=== PATIENT | female | born 1985 | race Caucasian/White ===

== ENCOUNTER 2017-11-27 08:20 | Emergency (ER) | payer OTHER ==
--- OUTSIDE RECORDS SUMMARY | 2017-11-27 08:22 | XMS REPORT ---
:1985 [facility] Organization [facility] Address [address] [place] [address] Dr. Conn [address] [place] [id number] Care Team Providers Name Role Phone Unavailable Unavailable Unavailable Problems This patient has no known problems. Allergies, Adverse Reactions, Alerts This patient has no known allergies or adverse reactions. Medications This patient has no known medications.
[2017-11-27] MEDS ORDERED: MORPHINE 4 MG/ML SYR ONE (08:43)
[2017-11-27] MEDS ORDERED: ONDANSETRON 4 MG/2 ML VIAL ONE (08:44)
[2017-11-27] MEDS ORDERED: KETOROLAC 30 MG/ML INJ ONE (08:44)
[2017-11-27] MEDS ORDERED: NA CHLORIDE 0.9% 1,000 ML ONE (08:44)
[2017-11-27 09:05] LABS: Absolute Lymphocytes (CBC) 1.7 K/uL (0.7-4.9); Absolute Monocytes 0.4 K/uL (0.1-1.3); Absolute Neutrophil 4.2 K/uL (1.8-8.0); Basophils % 0.7 % (0-1.3); Eosinophils % 3.8 % (0-4.4); MCH 29.8 pg (27.0-35.0); MCV 87.5 fL (80-100); MPV 9.6 fL (7.6-11.3); Monocytes % 6.3 % (3.3-12.3); RBC Red Blood Cell Count 4.57 M/uL (3.86-4.86)
[2017-11-27 09:31] LABS: ALT/SGPT 23 U/L (12-78); AST/SGOT 18 U/L (15-37); Albumin 3.1 g/dL (3.4-5.0); Alkaline Phosphatase 79 U/L (45-117); BUN Blood Urea Nitrogen 12 mg/dL (7-18); Bicarbonate 26 mmol/L (21-32); Bilirubin Direct < 0.1 mg/dL (0-0.2); Bilirubin Total 0.3 mg/dL (0.2-1.0); Glucose Level 106 mg/dL (74-106); Lipase 89 U/L (73-393); Potassium 4.1 mmol/L (3.5-5.1); Protein, Total 6.7 g/dL (6.4-8.2); Sodium Level 143 mmol/L (136-145)
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
[2017-11-27 11:09] LABS: Urine Blood 2+ (NEG); Urine Glucose NEGATIVE (NEG); Urine Protein NEGATIVE (NEG); Urine Specific Gravity 1.015 (1.005-1.030)
== END 2017-11-27 11:24 | disposition home or self-care (01) ==
LOC: ER 08:20
DX: S29.012A Strain of muscle and tendon of back wall of thorax, initial encounter (principal); V49.9XXA Car occupant (driver) (passenger) injured in unspecified traffic accident, initial encounter; Z72.0 Tobacco use; Z88.5 Allergy status to narcotic agent; Z88.6 Allergy status to analgesic agent; F31.9 Bipolar disorder, unspecified
CPT/HCPCS: 36415; 70450; 71260; 72125; 74177; 80048; 80076; 81003; 81025; 83690; 85025; 86850; 86900; 86901; 96361; 96374; 96375; 99285; J2405; J7030; Q9967

== ENCOUNTER 2018-03-06 15:29 | Emergency (ER) | payer OTHER ==
--- OUTSIDE RECORDS SUMMARY | 2018-03-06 15:31 | XMS REPORT ---
:1985 [facility] Address [address] [place] [address] Dr. Conn [address] [place] [id number] Care Team Providers Name Role Phone Unavailable Unavailable Unavailable Problems This patient has no known problems. Allergies, Adverse Reactions, Alerts This patient has no known allergies or adverse reactions. Medications This patient has no known medications.
[2018-03-06] MEDS ORDERED: IBUPROFEN 400 MG TAB ONE (15:58)
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
--- NOTE | 2018-03-06 17:02 | ER ---
Nurse's Notes [facility] Name: Vanessa Ramachandran Age: 32 yrs Sex: Female : 1985 Arrival Date: 03/06/2018 Time: 15:31 Bed 20 Private MD: Diagnosis: Internal derangement of knee Presentation: 03/06 15:31 Presenting complaint: EMS states: Pt was walking up up stairs and felt her left knee go jl7 out and severe pain to the knee. Transition of care: patient was not received from another setting of care. Onset of symptoms was March 06, 2018. Risk Assessment: Do you want to hurt yourself or someone else? Patient reports no desire to harm self or others. Initial Sepsis Screen: Does the patient meet any 2 criteria? No. Patient's initial sepsis screen is negative. Does the patient have a suspected source of infection? No. Patient's initial sepsis screen is negative. Care prior to arrival: None. 15:31 Method Of Arrival: EMS: [facility] er 15:31 Acuity: ZOE 4 jl7 CLINICAL RN: 17:54 LMP N/A - Irregular menses bp Historical: - Allergies: 15:35 Codeine; jl7 15:35 Ibuprofen; jl7 - Home Meds: 15:35 Sheridan 5-325 mg Oral tab [Active]; BuSpar Oral [Active]; jl7 - PMHx: 15:35 ADD/ADHD; Bipolar disorder; Asthma; Severe Anxiety Disorder; Endometrosis; jl7 - Immunization history:: Adult Immunizations up to date. - Social history:: Smoking status: Patient uses tobacco products, smokes one-half pack cigarettes per day. - Ebola Screening: : No symptoms or risks identified at this time. Screenin:34 Abuse screen: Denies threats or abuse. Denies injuries from another. Nutritional bp screening: No deficits noted. Tuberculosis screening: No symptoms or risk factors identified. Fall Risk No fall in past 12 months (0 pts). No secondary diagnosis (0 pts). No IV (0 pts). Ambulatory Aid- None/Bed Rest/Nurse Assist (0 pts). Gait- Normal/Bed Rest/Wheelchair (0 pts) Mental Status- Oriented to own ability (0 pts). Total Parks Fall Scale indicates No Risk (0-24 pts). Assessment: 15:32 General: Appears in no apparent distress. uncomfortable, obese, Behavior is bp cooperative, appropriate for age, anxious. Pain: Complains of pain in left knee. Neuro: Level of Consciousness is awake, alert, obeys commands, Oriented to person, place, time, situation, Appropriate for age. Cardiovascular: No deficits noted. Respiratory: Airway is patent Respiratory effort is even, unlabored, Respiratory pattern is regular, symmetrical. GI: No signs and/or symptoms were reported involving the gastrointestinal system. : No signs and/or symptoms were reported regarding the genitourinary system. EENT: No deficits noted. Derm: No deficits noted. Musculoskeletal: Circulation, motion, and sensation intact. Range of motion: limited in left knee. 16:30 Reassessment: ALL CURRENT ORDERS COMPLETED, DISPO PENDING. bp 17:52 Reassessment: PT D/C HOME VIA W/C WITH FAMILY, DX WITH INTERNAL DERANGEMENT OF KNEE. bp Vital Signs: 15:35 BP 115 / 79; Pulse 84; Resp 16 S; Temp 98(O); Pulse Ox 97% on R/A; Weight 111.13 kg jl7 (R); Height 5 ft. 3 in. (160.02 cm) (R); Pain 10/10; 17:30 BP 121 / 77; Pulse 73; Resp 14; Pulse Ox 99% ; bp 15:35 Body Mass Index 43.40 (111.13 kg, 160.02 cm) jl7 ED Course: 15:31 Patient arrived in ED. jl7 15:31 Brandyn Broussard, RN is Primary Nurse. bp 15:33 Triage completed. jl7 15:34 Trino Krueger MD is Attending Physician. gs 15:34 Patient has correct armband on for positive identification. Bed in low position. Call bp light in reach. Side rails up X2. 15:35 Arm band placed on right wrist. jl7 15:51 X-ray completed. Portable x-ray completed in exam room. Patient tolerated procedure ka well. 16:07 Knee Left 3 View In Process Unspecified. EDMS 16:58 Virgil Keene MD is Referral Physician. gs 17:53 No provider procedures requiring assistance completed. Patient did not have IV access bp during this emergency room visit. Administered Medications: 15:55 Not Given (Patient Refused): Ibuprofen 600 mg PO once bp 17:00 Drug: Sheridan 5 mg-325 mg 1 tabs Route: PO; bp 17:32 Follow up: Response: Pain is decreased bp Outcome: 17:01 Discharge ordered by . dorene 17:53 Discharged to home via wheelchair, with family. bp 17:53 Condition: stable 17:53 Discharge instructions given to patient, Instructed on discharge instructions, follow up and referral plans. Demonstrated understanding of instructions, follow-up care. 17:55 Patient left the ED. bp Signatures: Dispatcher [employer] EDMS Coty Stuart Jahala, RN RN jl7 Trino Krueger MD MD gs Peltier, Brian RN RN bp
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
[2018-03-06] MEDS ORDERED: HYDROCODONE/APAP 5/325 MG TAB ONE (17:14)
== END 2018-03-06 17:55 | disposition home or self-care (01) ==
LOC: ER 15:29
DX: M23.92 Unspecified internal derangement of left knee (principal); F17.210 Nicotine dependence, cigarettes, uncomplicated; F41.9 Anxiety disorder, unspecified; Z79.899 Other long term (current) drug therapy
CPT/HCPCS: 99283

== ENCOUNTER 2019-05-22 17:57 | Emergency (ER) | payer BC, OTHER ==
--- OUTSIDE RECORDS SUMMARY | 2019-05-22 18:00 | XMS REPORT ---
:1985 Author Organization [facility] Address [address] [place] [address] Dr. Conn [address] [place] [id number] Care Team Providers Name Role Phone Unavailable Unavailable Unavailable Problems This patient has no known problems. Allergies, Adverse Reactions, Alerts This patient has no known allergies or adverse reactions. Medications This patient has no known medications.
--- OUTSIDE RECORDS SUMMARY | 2019-05-22 18:00 | XMS REPORT | Summary of Care ---
:1985 Author Organization [facility] Address [address] [place] [id number] Care Team Providers Name Role Phone Jesse Mclaughlin MD Primary Care Provider Reason for Visit Reason Comments Refill Request Encounter Details Date Type Department Care Team Description 12/05/2018 Refill [facility] Family Medicine Jesse Mclaughlin MD Refill Request - [address] [address] [place] [phone] Allergies Active Allergy Reactions Severity Noted Date Comments Codeine Other - See comments 02/07/2017 Bad stomach pain Ibuprofen Other - See comments 12/23/2016 Severe abdominal pain Metoclopramide Hcl Anxiety 06/21/2018 Massive documented as of this encounter (statuses as of 12/07/2018) Medications Medication Sig Dispensed Refills Start Date End Date Status albuterol 2.5 mg Inhale 3 mL 100 Each 12 12/23/2016 Active /3 mL (0.083 %) every 4 (four) nebulizer hours as solutionIndication needed for s: Mild persistent Wheezing or asthma without Shortness of complication Breath. HYDROcodone-acetam TAKE 1 TABLET 0 02/17/2017 Active inophen 5-325 mg TWICE A DAY tablet FOR 28 DAY(S) sod Use 1 Bottle 1 Each 0 04/13/2017 Active njxpf-lmzbkl-jkpry in each z bottle (NEILMED nostril 2 SINUS RINSE (two) times COMPLETE) pkdv daily. Use in hot shower 1 hour before bedtime Omeprazole 20 mg Take by mouth 0 Active tablet 2 (two) times daily. SYMBICORT 160-4.5 INHALE 2 PUFFS 10.2 Inhaler 8 01/01/2018 Active mcg/actuation 2 (TWO) TIMES inhalerIndications DAILY. : Mild persistent asthma without complication fluocinonide-emoll Apply to 60 g 3 02/12/2018 Active ient 0.05 % area(s) 2 creamIndications: (two) times Seborrheic daily. dermatitis dicyclomine Take 1 tablet 60 tablet 2 03/08/2018 Active (BENTYL) 20 mg by mouth 3 tabletIndications: (three) times Irritable bowel daily as syndrome with needed for constipation Abdominal pain. busPIRone 15 mg Take 15 mg by 0 Active tablet mouth 3 (three) times daily. benzonatate Take 1 capsule 20 capsule 0 03/15/2018 Active (TESSALON PERLES) by mouth 3 100 mg (three) times capsuleIndications daily. : Viral URI fluticasone 50 Use 2 Sprays 16 g 0 03/15/2018 Active mcg/actuation in each nasal nostril daily. sprayIndications: Viral URI norethindrone-ethi 0 03/04/2018 Active nyl estradiol 1-20 mg-mcg per tablet tiZANidine 4 mg Take 4 mg by 0 Active tablet mouth every 6 (six) hours as needed. PREDNISONE, BULK, 0 Active MISC proMETHazine 25 mg Take 1 tablet 12 tablet 0 06/17/2018 Active tabletIndications: by mouth every Epigastric pain, 6 (six) hours Enteritis as needed for Nausea and Vomiting (N/V). divalproex 250 mg Take 250 mg by 0 Active EC tablet mouth at bedtime. loratadine 10 mg Take 1 tablet 30 tablet 12 07/10/2018 Active tabletIndications: by mouth Viral URI daily. sumatriptan Take 1 tablet 9 tablet 12 07/10/2018 Active (IMITREX) 100 mg by mouth as tabletIndications: needed for Intractable Migraine. migraine without aura and without status migrainosus elagolix 150 mg Take 1 tablet 30 tablet 4 07/13/2018 Active TabIndications: by mouth Endometriosis, daily. Pain pelvic NORTRIPTYLINE 25 TAKE 1 CAPSULE 90 capsule 0 09/11/2018 Active mg BY MOUTH AT capsuleIndications BEDTIME : Irritable bowel syndrome with constipation albuterol (PROAIR INHALE TWO 8.5 Each 0 12/07/2018 Active HFA) 90 PUFFS BY MOUTH mcg/actuation EVERY 6 HOURS inhalerIndications NEEDED FOR : Mild persistent WHEEZING AND asthma without FOR SHORTNESS complication OF BREATH albuterol (PROAIR 2 PUFFS EVERY 8.5 Inhaler 0 11/08/2018 Discontinued HFA) 90 6 HOURS 9 mcg/actuation NEEDED FOR inhalerIndications WHEEZING AND : Mild persistent SHORTNESS OF asthma without BREATHE complication documented as of this encounter (statuses as of 12/07/2018) Active Problems Problem Noted Date Abdominal pain 06/19/2018 Other constipation 03/08/2018 Overview: Added automatically from request for surgery [id number] Irritable bowel syndrome with constipation 03/08/2018 Overview: Added automatically from request for surgery [id number] Excessive or frequent menstruation 09/22/2017 Cyst of right ovary 09/22/2017 Morbid obesity with body mass index of 40.0-49.9 06/22/2017 Abdominal pain, right upper quadrant 06/02/2017 Overview: Added automatically from request for surgery [id number] Tobacco use disorder 03/08/2017 Pain pelvic 03/08/2017 Obesity (BMI 30-39.9) 04/30/2016 documented as of this encounter (statuses as of 12/07/2018) Immunizations Name Administration Dates Next Due Tdap 12/02/2016 documented as of this encounter Social History Tobacco Use Types Packs/Day Years Used Date Current Every Day Smoker Cigarettes 0.5 11 Started: 04/03/2005 Smokeless Tobacco: Never Used Alcohol Use Drinks/Week oz/Week Comments No Sex Assigned at Date Recorded Not on file Job Start Date Occupation Industry Not on file Not on file Not on file Travel History Travel Start Travel End No recent travel history available. documented as of this encounter Last Filed Vital Signs Not on filedocumented in this encounter Plan of Treatment Date Type Specialty Care Team Description 01/03/2019 Office Visit Gastroenterology Jeferson Ryder MD Al Hanayneh, Muhannad, MD [address] [facility] [address] [place] [address] [phone] Health Maintenance Due Date Last Done Comments PNEUMOCOCCAL 0-64 YEARS COMBINED SERIES (1 of 1 - 1993 PPSV23) INFLUENZA VACCINE (#1) 2018 PAP SMEAR 03/08/2020 03/08/2017 DTaP,Tdap,and Td Vaccines (2 - Td) 12/02/2026 12/02/2016 documented as of this encounter Results Not on filedocumented in this encounter Visit Diagnoses Diagnosis Mild persistent asthma without complication Unspecified asthma documented in this encounter Insurance Payer Benefit Plan / Subscriber ID Effective Dates Phone Address Type Group [facility] xxxxxxxxx 2017-[facility] Medicaid COMM PLAN - PLUS t MANAGED MEDICAID documented as of this encounter
--- OUTSIDE RECORDS SUMMARY | 2019-05-22 18:00 | XMS REPORT | Summary of Care ---
:1985 Author Organization [facility] Address [address] [place] [id number] Care Team Providers Name Role Phone Jesse Mclaughlin MD Primary Care Provider Reason for Visit Reason Comments Refill Request Encounter Details Date Type Department Care Team Description 11/07/2018 Refill [facility] Family Medicine Jesse Mclaughlin MD Refill Request - [address] [address] [place] [phone] Allergies Active Allergy Reactions Severity Noted Date Comments Codeine Other - See comments 02/07/2017 Bad stomach pain Ibuprofen Other - See comments 12/23/2016 Severe abdominal pain Metoclopramide Hcl Anxiety 06/21/2018 Massive documented as of this encounter (statuses as of 11/08/2018) Medications Medication Sig Dispensed Refills Start Date [...] 1 Bottle 1 Each 0 04/13/2017 Active xofni-walyww-kkauc in each z bottle (NEILMED nostril 2 [...] Irritable bowel syndrome with constipation albuterol (PROAIR 2 PUFFS EVERY 8.5 Inhaler 0 11/08/2018 Active HFA) 90 6 HOURS mcg/actuation NEEDED FOR inhalerIndications WHEEZING AND : Mild persistent SHORTNESS OF asthma without BREATHE complication albuterol (PROAIR 2 PUFFS EVERY 8.5 Inhaler 0 10/18/2018 Discontinued HFA) 90 6 HOURS 9 mcg/actuation NEEDED FOR inhalerIndications WHEEZING AND : Mild persistent SHORTNESS OF asthma without BREATHE complication documented as of this encounter (statuses as of 11/08/2018) Active Problems Problem Noted Date Abdominal pain 06/19/2018 Other constipation 03/08/2018 Overview: Added automatically from request for surgery [id number] Irritable bowel syndrome with constipation 03/08/2018 Overview: Added automatically from request for surgery [id number] Excessive or frequent menstruation 09/22/2017 Cyst of right ovary 09/22/2017 Morbid obesity with body mass index of 40.0-49.9 06/22/2017 Abdominal pain, right upper quadrant 06/02/2017 Overview: Added automatically from request for surgery [id number] Tobacco use disorder 03/08/2017 Pain pelvic 03/08/2017 Obesity (BMI 30-39.9) 04/30/2016 documented as of this encounter (statuses as of 11/08/2018) Immunizations Name Administration Dates Next Due Tdap [...] Jeferson Ryder MD Al Hanayneh, Muhannad, MD [address] [facility] [address] [place] [address] [phone] Health Maintenance Due Date Last Done Comments PNEUMOCOCCAL 0-64 YEARS COMBINED SERIES (1 of 1 - 1993 PPSV23) INFLUENZA VACCINE 12/02/2018 PAP SMEAR 03/08/2020 03/08/2017 DTaP,Tdap,and Td Vaccines (2 - Td) 12/02/2026 12/02/2016 documented as of this encounter Results Not on filedocumented in this encounter Visit Diagnoses Diagnosis Mild persistent asthma without complication Unspecified asthma documented in this encounter Insurance Payer Benefit Plan / Subscriber ID Effective Dates Phone Address Type Group [facility] xxxxxxxxx 2017-[facility] Medicaid COMM PLAN - PLUS t MANAGED MEDICAID documented as of this encounter
--- OUTSIDE RECORDS SUMMARY | 2019-05-22 18:01 | XMS REPORT | Summary of Care ---
:1985 Author Organization [facility] - Health Address [address] [place] [address] Care Team Providers Name Role Phone Jesse Mclaughlin MD Primary Care Provider Encounter Details Date Type Department Care Team Description 12/21/2018 Orders Only [facility] Doctor Unassigned, No [address] [facility] Name [place], [place] [id number] [place], [place] [id number] Allergies Active Allergy Reactions Severity Noted Date Comments Codeine Other - See comments 02/07/2017 Bad stomach pain Ibuprofen Other - See comments 12/23/2016 Severe abdominal pain Metoclopramide Hcl Anxiety 06/21/2018 Massive documented as of this encounter (statuses as of 12/21/2018) Medications Medication Sig Dispensed Refills Start Date End Date Status albuterol 2.5 mg /3 Inhale 3 mL 100 Each 12 12/23/2016 Active mL (0.083 %) every 4 (four) nebulizer hours as needed solutionIndications: for Wheezing or Mild persistent Shortness of asthma without Breath. complication HYDROcodone-acetamino TAKE 1 TABLET 0 02/17/2017 Active phen 5-325 mg tablet TWICE A DAY FOR 28 DAY(S) sod Use 1 Bottle in 1 Each 0 04/13/2017 Active lqfjf-ckgsqe-ykysxr each nostril 2 bottle (NEILMED SINUS (two) times RINSE COMPLETE) pkdv daily. Use in hot shower 1 hour before bedtime Omeprazole 20 mg Take by mouth 2 0 Active tablet (two) times daily. SYMBICORT 160-4.5 INHALE 2 PUFFS 2 10.2 Inhaler 8 01/01/2018 Active mcg/actuation (TWO) TIMES inhalerIndications: DAILY. Mild persistent asthma without complication fluocinonide-emollien Apply to 60 g 3 02/12/2018 Active t 0.05 % area(s) 2 (two) creamIndications: times daily. Seborrheic dermatitis dicyclomine (BENTYL) Take 1 tablet by 60 tablet 2 03/08/2018 Active 20 mg mouth 3 (three) tabletIndications: times daily as Irritable bowel needed for syndrome with Abdominal pain. constipation busPIRone 15 mg Take 15 mg by 0 Active tablet mouth 3 (three) times daily. benzonatate (TESSALON Take 1 capsule 20 capsule 0 03/15/2018 Active PERLES) 100 mg by mouth 3 capsuleIndications: (three) times Viral URI daily. fluticasone 50 Use 2 Sprays in 16 g 0 03/15/2018 Active mcg/actuation nasal each nostril sprayIndications: daily. Viral URI norethindrone-ethinyl 0 03/04/2018 Active estradiol 1-20 mg-mcg per tablet tiZANidine 4 mg Take 4 mg by 0 Active tablet mouth every 6 (six) hours as needed. PREDNISONE, BULK, 0 Active MISC proMETHazine 25 mg Take 1 tablet by 12 tablet 0 06/17/2018 Active tabletIndications: mouth every 6 Epigastric pain, (six) hours as Enteritis needed for Nausea and Vomiting (N/V). divalproex 250 mg EC Take 250 mg by 0 Active tablet mouth at bedtime. loratadine 10 mg Take 1 tablet by 30 tablet 12 07/10/2018 Active tabletIndications: mouth daily. Viral URI sumatriptan (IMITREX) Take 1 tablet by 9 tablet 12 07/10/2018 Active 100 mg mouth as needed tabletIndications: for Migraine. Intractable migraine without aura and without status migrainosus elagolix 150 mg Take 1 tablet by 30 tablet 4 07/13/2018 Active TabIndications: mouth daily. Endometriosis, Pain pelvic NORTRIPTYLINE 25 mg TAKE 1 CAPSULE 90 capsule 0 09/11/2018 Active capsuleIndications: BY MOUTH AT Irritable bowel BEDTIME syndrome with constipation albuterol (PROAIR INHALE TWO PUFFS 8.5 Each 0 12/07/2018 Active HFA) 90 mcg/actuation BY MOUTH EVERY 6 inhalerIndications: HOURS NEEDED Mild persistent FOR WHEEZING AND asthma without FOR SHORTNESS OF complication BREATH documented as of this encounter (statuses as of 12/21/2018) Active Problems Problem Noted Date Abdominal pain 06/19/2018 Other constipation 03/08/2018 Overview: Added automatically from request for surgery [id number] Irritable bowel syndrome with constipation 03/08/2018 Overview: Added automatically from request for surgery [id number] Excessive or frequent menstruation 09/22/2017 Cyst of right ovary 09/22/2017 Morbid obesity with body mass index of 40.0-49.9 06/22/2017 Abdominal pain, right upper quadrant 06/02/2017 Overview: Added automatically from request for surgery [id number] Tobacco use disorder 03/08/2017 Pain pelvic 03/08/2017 Obesity (BMI 30-39.9) 04/30/2016 documented as of this encounter (statuses as of 12/21/2018) Immunizations Name Administration Dates Next Due Tdap [...] Treatment Date Type Specialty Care Team Description 12/21/2018 Office Visit Family Medicine Jesse Mclaughlin MD Arrived [address] [place] [address] [place] [phone] 01/03/2019 Office Visit Gastroenterology Jeferson Ryder MD Al Hanayneh, Muhannad, MD [address] [facility] [address] [place] [address] Health Maintenance Due Date Last Done Comments PNEUMOCOCCAL 0-64 YEARS COMBINED SERIES (1 of 1 - 1993 PPSV23) INFLUENZA VACCINE (#1) 2018 PAP SMEAR 03/08/2020 03/08/2017 DTaP,Tdap,and Td Vaccines (2 - Td) 12/02/2026 12/02/2016 documented as of this encounter Procedures Procedure Name Priority Date/Time Associated Diagnosis Comments NO SHOW OR MISSED Routine 12/21/2018 12:58 PM APPOINTMENT POLICY CDT ACKNOWLEDGEMENT documented in this encounter Results Not on filedocumented in this encounter Insurance Payer Benefit Plan / Subscriber ID Effective Dates Phone Address Type Group [facility] xxxxxxxxx 2017-[employer] Medicaid COMM PLAN - PLUS t MANAGED MEDICAID documented as of this encounter
--- OUTSIDE RECORDS SUMMARY | 2019-05-22 18:01 | XMS REPORT | Summary of Care ---
:1985 Author Organization [facility] Address [address] [place] [address] Care Team Providers Name Role Phone Jesse Mclaughlin MD Primary Care Provider Reason for Visit Reason Comments Congestion Sore Throat Exposed to strep Encounter Details Date Type Department Care Team Description 12/21/2018 Office Visit [facility] Family Jesse Mclaughlin Viral upper Medicine - Asif Whitehead MD respiratory tract [address] infection (Primary [place], [place]x) [address] [phone] Allergies Active Allergy Reactions Severity Noted Date [...] Bottle in 1 Each 0 04/13/2017 Active yjgab-eajfzg-ckijfl each nostril 2 bottle (NEILMED SINUS (two) [...] Overview: Added automatically from request for surgery [id number] Irritable bowel syndrome with constipation 03/08/2018 Overview: Added automatically from request for surgery [id number] Excessive or frequent menstruation 09/22/2017 Cyst of right ovary 09/22/2017 Morbid obesity with body mass index of 40.0-49.9 06/22/2017 Abdominal pain, right upper quadrant 06/02/2017 Overview: Added automatically from request for surgery [id number] Tobacco use disorder 03/08/2017 Pain pelvic 03/08/2017 [...] of this encounter Last Filed Vital Signs Vital Sign Reading Time Taken Comments Blood Pressure 97/70 12/21/2018 1:08 PM CDT Pulse 63 12/21/2018 1:08 PM CDT Temperature 37.2 C (98.9 F) 12/21/2018 1:08 PM CDT Respiratory Rate - - Oxygen Saturation - - Inhaled Oxygen Concentration - - Weight 108 kg (238 lb) 12/21/2018 1:08 PM CDT Height 160 cm (5' 3") 12/21/2018 1:08 PM CDT Body Mass Index 42.16 12/21/2018 1:08 PM CDT documented in this encounter Patient Instructions Patient InstructionsJesse Mclaughlin MD - 12/21/2018 1:00 PM CDTUse Robitussin DM or Mucinex DM. Drink plenty of fluids and get plenty of rest. Advil Cold/Sinus as needed for fever and/or congestion. Wash hands frequently. documented in this encounter Progress Notes Jesse Mclaughlin MD - 12/21/2018 1:00 PM CDT CC: gabe Mendez is a 33 year old female URI Presenting symptoms: congestion, cough, ear pain, facial pain, fatigue, rhinorrhea and sore throat Presenting symptoms: no fever Duration: 2 days Risk factors: sick contacts (son with strep throat) Allergies Allergen Reactions Codeine Other - See comments Bad stomach pain Ibuprofen Other - See comments Severe abdominal pain Reglan [Metoclopramide Hcl] Anxiety Massive Current Outpatient Medications Medication Sig Dispense Refill albuterol (PROAIR HFA) 90 mcg/actuation inhaler INHALE TWO PUFFS BY MOUTH EVERY 6 HOURS NEEDED FOR WHEEZING AND FOR SHORTNESS OF BREATH 8.5 Each 0 NORTRIPTYLINE 25 mg capsule TAKE 1 CAPSULE BY MOUTH AT BEDTIME 90 capsule 0 elagolix 150 mg Tab Take 1 tablet by mouth daily. 30 tablet 4 loratadine 10 mg tablet Take 1 tablet by mouth daily. 30 tablet 12 sumatriptan (IMITREX) 100 mg tablet Take 1 tablet by mouth as needed for Migraine. 9 tablet 12 divalproex 250 mg EC tablet Take 250 mg by mouth at bedtime. proMETHazine 25 mg tablet Take 1 tablet by mouth every 6 (six) hours as needed for Nausea and Vomiting (N/V). 12 tablet 0 PREDNISONE, BULK, MISC norethindrone-ethinyl estradiol 1-20 mg-mcg per tablet tiZANidine 4 mg tablet Take 4 mg by mouth every 6 (six) hours as needed. benzonatate (TESSALON PERLES) 100 mg capsule Take 1 capsule by mouth 3 ( three) times daily. 20 capsule 0 busPIRone 15 mg tablet Take 15 mg by mouth 3 (three) times daily. fluticasone 50 mcg/actuation nasal spray Use 2 Sprays in each nostril daily. 16 g 0 dicyclomine (BENTYL) 20 mg tablet Take 1 tablet by mouth 3 (three) times daily as needed for Abdominal pain. 60 tablet 2 fluocinonide-emollient 0.05 % cream Apply to area(s) 2 (two) times daily. 60 g 3 SYMBICORT 160-4.5 mcg/actuation inhaler INHALE 2 PUFFS 2 (TWO) TIMES DAILY. 10.2 Inhaler 8 Omeprazole 20 mg tablet Take by mouth 2 (two) times daily. sod fdgot-pochit-njvkvo bottle (NEILMED SINUS RINSE COMPLETE) pkdv Use 1 Bottle in each nostril 2 (two) times daily. Use in hot shower 1 hour before bedtime 1 Each 0 HYDROcodone-acetaminophen 5-325 mg tablet TAKE 1 TABLET TWICE A DAY FOR 28 DAY(S) 0 albuterol 2.5 mg /3 mL (0.083 %) nebulizer solution Inhale 3 mL every 4 ( four) hours as needed for Wheezing or Shortness of Breath. 100 Each 12 No current facility-administered medications for this visit. Past Medical History: Diagnosis Date ADHD (attention deficit hyperactivity disorder) at age 5 Anxiety age 14 Bipolar 1 disorder 2002 Breast disorder breast discharge since age 17 Depression Endometriosis 2010 Esophageal reflux Past Surgical History: Procedure Laterality Date CHOLECYSTECTOMY 08/2016 COLONOSCOPY N/A 06/22/2017 Surgeon: Olayinka Shell MD; Location: [place] [facility] COLONOSCOPY N/A 05/01/2018 Surgeon: Jeferson Ryder MD; Location: [place] [facility] Location ESOPHAGOGASTRODUODENOSCOPY N/A 06/22/2017 Surgeon: Olayinka Shell MD; Location: [place] [facility] ESOPHAGOGASTRODUODENOSCOPY N/A 06/21/2018 Surgeon: Sindhu Rowland MD; Location: [facility] EXPLORATORY LAPAROTOMY 2010 endometriosis MYRINGOTOMY as a child x 3 Social History Socioeconomic History Marital status: Single Spouse name: Not on file Number of children: Not on file Years of education: Not on file Highest education level: Not on file Occupational History Not on file Social Needs Financial resource strain: Not on file Food insecurity: Worry: Not on file Inability: Not on file Transportation needs: Medical: Not on file Non-medical: Not on file Tobacco Use Smoking status: Current Every Day Smoker Packs/day: 0.50 Years: 11.00 Pack years: 5.50 Types: Cigarettes Start date: 04/03/2005 Smokeless tobacco: Never Used Substance and Sexual Activity Alcohol use: No Drug use: No Sexual activity: Never Partners: Female control/protection: None Lifestyle Physical activity: Days per week: Not on file Minutes per session: Not on file Stress: Not on file Relationships Social connections: Talks on phone: Not on file Gets together: Not on file Attends christianity service: Not on file Active member of club or organization: Not on file Attends meetings of clubs or organizations: Not on file Relationship status: Not on file Intimate partner violence: Fear of current or ex partner: Not on file Emotionally abused: Not on file Physically abused: Not on file Forced sexual activity: Not on file Other Topics Concern Not on file Social History Narrative Pt denies current or past physical, sexual or emotional abuse. Family History Problem Relation Age of Onset Arthritis Mother Depression Mother Other - see comments Mother benign brain tumor Breast Cancer Mother Cancer Maternal Grandmother Heart Maternal Grandmother Stroke Maternal Grandmother Psychiatry Maternal Grandmother bipolar Cancer Paternal Grandmother High cholesterol Paternal Grandmother Asthma NoFHx defects NoFHx Colon Cancer NoFHx Ovarian Cancer NoFHx Uterine Cancer NoFHx Diabetes NoFHx Genetic NoFHx Hypertension NoFHx Mental retardation NoFHx Neurological NoFHx Osteoporosis NoFHx Review of Systems Constitutional: Positive for fatigue. Negative for fever. HENT: Positive for congestion, ear pain, rhinorrhea and sore throat. Respiratory: Positive for cough. BP 97/70 | Pulse 63 | Temp 37.2 C (98.9 F) (Oral) | Ht 5' 3" (1.6 m) | Wt 238 lb (108 kg) |BMI 42.16 kg/m Physical Exam Constitutional: She is oriented to person, place, and time. She appears well- developed and well-nourished. HENT: Head: Normocephalic and atraumatic. Eyes: Pupils are equal, round, and reactive to light. Conjunctivae are normal. Neck: Normal range of motion. Neck supple. No JVD present. No tracheal deviation present. No thyromegaly present. Cardiovascular: Normal rate, regular rhythm, normal heart sounds and intact distal pulses. Exam reveals no gallop and no friction rub. No murmur heard. Pulmonary/Chest: Effort normal and breath sounds normal. No respiratory distress. She has no wheezes. She has no rales. She exhibits no tenderness. Abdominal: Soft. Bowel sounds are normal. She exhibits no distension and no mass. There is no tenderness. There is no rebound and no guarding. Musculoskeletal: Normal range of motion. She exhibits no edema or tenderness. Lymphadenopathy: She has no cervical adenopathy. Neurological: She is alert and oriented to person, place, and time. Skin: Skin is warm and dry. POCT Strep: NEGATIVE Diagnosis: 1. Viral upper respiratory tract infection Use Robitussin DM or Mucinex DM. Drink plenty of fluids and get plenty of rest. Advil Cold/Sinus as needed for fever and/or congestion. Wash hands frequently. Follow up: prn Patient Care Team: Jesse Mclaughlin MD as PCP - General ([facility]-FAMILY MEDICINE) Plan of care, desired health behaviors, goals,& medication discussed with patient. Education resources & self management tools provided and reviewed with AVS. Patient/guardian/family verbalized understanding & agrees to plan of care. Barriers to care: None Ability to manage care: Good documented in this encounter Plan of Treatment Date Type Specialty Care Team Description 01/03/2019 Office Visit Gastroenterology Jeferson Ryder MD Al Hanayneh, Muhannad, MD [address] [facility] [address] [place] [address] [phone] Health Maintenance Due Date Last Done Comments PNEUMOCOCCAL 0-64 YEARS COMBINED SERIES (1 of 1 - 1993 PPSV23) INFLUENZA VACCINE (#1) 2018 PAP SMEAR 03/08/2020 03/08/2017 DTaP,Tdap,and Td Vaccines (2 - Td) 12/02/2026 12/02/2016 documented as of this encounter Results Not on filedocumented in this encounter Visit Diagnoses Diagnosis Viral upper respiratory tract infection - Primary Acute upper respiratory infections of unspecified site documented in this encounter Insurance Payer Benefit Plan / Subscriber ID Effective Dates Phone Address Type Group [facility] xxxxxxxxx 2017-[employer] Medicaid COMM PLAN - PLUS t MANAGED MEDICAID ([place]) [place] [address] documented as of this encounter
--- OUTSIDE RECORDS SUMMARY | 2019-05-22 18:02 | XMS REPORT | Summary of Care ---
:1985 Author Organization [facility] Address [address] [place] [address] Care Team Providers Name Role Phone Jesse Mclaughlin MD Primary Care Provider Reason for Visit Reason Comments Congestion Sore Throat Exposed to strep Encounter Details Date Type Department Care Team Description 12/21/2018 Office Visit [facility] Family Jesse Mclaughlin Viral upper Medicine - Asif Whitehead MD respiratory tract [address] infection (Primary [place], [place] Dx) [address] [phone] Allergies Active Allergy Reactions Severity Noted Date [...] Bottle in 1 Each 0 04/13/2017 Active svbxh-sifzop-ayykih each nostril 2 bottle (NEILMED SINUS (two) [...] Overview: Added automatically from request for surgery [id number] Irritable bowel syndrome with constipation 03/08/2018 Overview: Added automatically from request for surgery [id number] Excessive or frequent menstruation 09/22/2017 Cyst of right ovary 09/22/2017 Morbid obesity with body mass index of 40.0-49.9 06/22/2017 Abdominal pain, right upper quadrant 06/02/2017 Overview: Added automatically from request for surgery [id number] Tobacco use disorder 03/08/2017 Pain pelvic 03/08/2017 [...] by mouth 2 (two) times daily. sod vjrtw-pbfukz-cpsjtb bottle (NEILMED SINUS RINSE COMPLETE) pkdv Use [...] N/A 06/22/2017 Surgeon: Olayinka Shell MD; Location: [place] [facility] COLONOSCOPY N/A 05/01/2018 Surgeon: Jeferson Ryder MD; Location: [place] [facility] Location ESOPHAGOGASTRODUODENOSCOPY N/A 06/22/2017 Surgeon: Olayinka Shell MD; Location: [place] [facility] ESOPHAGOGASTRODUODENOSCOPY N/A 06/21/2018 Surgeon: Sindhu Rowland MD; Location: [facility] EXPLORATORY LAPAROTOMY 2010 endometriosis MYRINGOTOMY as a [...] file Gets together: Not on file Attends congregation service: Not on file Active member of [...] Jeferson Ryder MD Al Hanayneh, Muhannad, MD [address] [facility] [address] [place] [address] [phone] Health Maintenance Due Date Last Done Comments [...] ID Effective Dates Phone Address Type Group [facility] xxxxxxxxx 2017-[employer] Medicaid COMM PLAN - PLUS t MANAGED MEDICAID ([place]) [place] [address] documented as of this encounter
--- OUTSIDE RECORDS SUMMARY | 2019-05-22 18:02 | XMS REPORT | Summary of Care ---
:1985 Author Organization [facility] Address [address] [place] [address] Care Team Providers Name Role Phone Jesse Mclaughlin MD Primary Care Provider Encounter Details Date Type Department Care Team Description 12/21/2018 Letter (Out) [facility] Family Jesse Mclaughlin Medicine - Asif ROMERO [address] [place] [address] [place] [address] [place] [address] Allergies Active Allergy Reactions Severity Noted Date [...] Bottle in 1 Each 0 04/13/2017 Active skeil-szjdbd-sichtp each nostril 2 bottle (NEILMED SINUS (two) [...] Overview: Added automatically from request for surgery [id number] Irritable bowel syndrome with constipation 03/08/2018 Overview: Added automatically from request for surgery [id number] Excessive or frequent menstruation 09/22/2017 Cyst of right ovary 09/22/2017 Morbid obesity with body mass index of 40.0-49.9 06/22/2017 Abdominal pain, right upper quadrant 06/02/2017 Overview: Added automatically from request for surgery [id number] Tobacco use disorder 03/08/2017 Pain pelvic 03/08/2017 [...] Jeferson Ryder MD Al Hanayneh, Muhannad, MD [address] [facility] [address] [place] [address] [phone] Health Maintenance Due Date Last Done Comments PNEUMOCOCCAL 0-64 YEARS COMBINED SERIES (1 of - 1993 PPSV23) INFLUENZA VACCINE (#1) 2018 PAP SMEAR 03/08/2020 03/08/2017 DTaP,Tdap,and Td Vaccines (2 - Td) 12/02/2026 12/02/2016 documented as of this encounter Results Not on filedocumented in this encounter Insurance Payer Benefit Plan / Subscriber ID Effective Dates Phone Address Type Group [facility] STAR xxxxxxxxx 2017-[facility] Medicaid COMM PLAN - PLUS t MANAGED MEDICAID documented as of this encounter
--- OUTSIDE RECORDS SUMMARY | 2019-05-22 18:02 | XMS REPORT | Summary of Care ---
:1985 Author Organization [facility] Address [address] [place] [address] Care Team Providers Name Role Phone Jesse Mclaughlin MD Primary Care Provider Reason for Visit Reason Comments Congestion Sore Throat Exposed to strep Encounter Details Date Type Department Care Team Description 12/21/2018 Office Visit [facility] Family Jesse Mclaughlin Viral upper Medicine - Asif Whitehead MD respiratory tract [address] infection (Primary [place], [place] Dx) [address] [phone] Allergies Active Allergy Reactions Severity Noted Date [...] Bottle in 1 Each 0 04/13/2017 Active zzjan-ywjhbd-tdbsfz each nostril 2 bottle (NEILMED SINUS (two) [...] Overview: Added automatically from request for surgery [id number] Irritable bowel syndrome with constipation 03/08/2018 Overview: Added automatically from request for surgery [id number] Excessive or frequent menstruation 09/22/2017 Cyst of right ovary 09/22/2017 Morbid obesity with body mass index of 40.0-49.9 06/22/2017 Abdominal pain, right upper quadrant 06/02/2017 Overview: Added automatically from request for surgery [id number] Tobacco use disorder 03/08/2017 Pain pelvic 03/08/2017 [...] by mouth 2 (two) times daily. sod nnmyz-hhongw-yjzzar bottle (NEILMED SINUS RINSE COMPLETE) pkdv Use [...] N/A 06/22/2017 Surgeon: Olayinka Shell MD; Location: [place] [facility] COLONOSCOPY N/A 05/01/2018 Surgeon: Jeferson Ryder MD; Location: [place] [facility] Location ESOPHAGOGASTRODUODENOSCOPY N/A 06/22/2017 Surgeon: Olayinka Shell MD; Location: [place] [facility] ESOPHAGOGASTRODUODENOSCOPY N/A 06/21/2018 Surgeon: Sindhu Rowland MD; Location: [facility] OR [facility] EXPLORATORY LAPAROTOMY 2010 endometriosis MYRINGOTOMY [...] file Gets together: Not on file Attends denominational service: Not on file Active member of [...] Jeferson Ryder MD Al Hanayneh, Muhannad, MD [address] [facility] [address] [place] [address] [phone] Health Maintenance Due Date Last Done Comments [...] ID Effective Dates Phone Address Type Group [facility] xxxxxxxxx 2017-[employer] Medicaid COMM PLAN - PLUS t MANAGED MEDICAID ([place]) [place] [address] documented as of this encounter
--- OUTSIDE RECORDS SUMMARY | 2019-05-22 18:03 | XMS REPORT | Summary of Care ---
:1985 Author Organization [facility] Address [address] [place] [address] Care Team Providers Name Role Phone Jesse Mclaughlin MD Primary Care Provider Reason for Visit Reason Comments Follow-up (Routine) Status Reason Specialty Diagnoses / Referred By Referred To Procedures Contact Contact Authorized Physical Therapy Diagnoses Pain in left knee Other chronic pain Muscle weakness (generalized) Gt Lewis, Procedures [place] THERAPEUTIC EXERCISES [place] NEUROMUSC REEDUCAT,1+ AREAS, EA 15 MIN TX MANUAL THER TECH,1+REGIONS,EA 15 MIN TX THERAPEUT ACTVITY DIRECT PT CONTACT EACH 15 MIN TX SELF-CARE/HOME MGMT TRAINING EACH 15 MINUTES FOLLOW-UP 45 MD Margy Reed, PT [address] [id number] Encounter Details Date Type Department Care Team Description 04/16/2019 Ancillary Visit [facility] Gt Lewis MD [address] [facility] [place] [address] Chronic pain of left knee (Primary Dx); Physical Therapy- Margy Carlton, PT [address] [place] [address] Decreased muscle strength [facility] [address] [place] [address] Dr. Wagner [address] [place] [phone] Allergies Active Allergy Reactions Severity Noted Date Comments Codeine Other - See comments 02/07/2017 Bad stomach pain Ibuprofen Other - See comments 12/23/2016 Severe abdominal pain Metoclopramide Hcl Anxiety 06/21/2018 Massive documented as of this encounter (statuses as of 04/16/2019) Medications Medication Sig Dispensed Refills Start Date [...] Bottle in 1 Each 0 04/13/2017 Active cjplj-zxcvba-unjihh each nostril 2 bottle (NEILMED SINUS (two) [...] 03/04/2018 Active estradiol 1-20 mg-mcg per tablet PREDNISONE, BULK, 0 Active MISC proMETHazine 25 mg Take 1 tablet by 12 tablet 0 06/17/2018 Active tabletIndications: mouth every 6 Epigastric pain, (six) hours as Enteritis needed for Nausea and Vomiting (N/V). divalproex 250 mg EC Take 250 mg by 0 Active tablet mouth at bedtime. elagolix 150 mg Take 1 tablet by 30 tablet 4 07/13/2018 Active TabIndications: mouth daily. Endometriosis, Pain pelvic NORTRIPTYLINE 25 mg TAKE 1 CAPSULE 90 capsule 0 09/11/2018 Active capsuleIndications: BY MOUTH AT Irritable bowel BEDTIME syndrome with constipation pentazocine-naloxone Take 1 tablet by 7 tablet 0 02/07/2019 Active 50-0.5 mg mouth every 6 tabletIndications: (six) hours as Chronic pain of left needed for Pain. knee loratadine 10 mg Take 1 tablet by 30 tablet 12 03/25/2019 Active tabletIndications: mouth daily. Viral URI sumatriptan (IMITREX) Take 1 tablet by 9 tablet 12 03/25/2019 Active 100 mg mouth as needed tabletIndications: for Migraine. Intractable migraine without aura and without status migrainosus tiZANidine 4 mg Take 1 tablet by 30 tablet 0 03/25/2019 Active tabletIndications: mouth every 6 Acute pain of left (six) hours as knee needed (knee pain). albuterol (PROAIR INHALE TWO PUFFS 8.5 Each 0 03/25/2019 Active HFA) 90 mcg/actuation BY MOUTH EVERY 6 inhalerIndications: HOURS NEEDED Mild persistent FOR WHEEZING AND asthma without FCOR SHORTNESS complication OF BREATH diclofenac 75 mg EC Take 1 tablet by 60 tablet 1 04/01/2019 Active tabletIndications: mouth 2 (two) Left knee pain, times daily with unspecified meals. chronicity documented as of this encounter (statuses as of 04/16/2019) Active Problems Problem Noted Date Asthma in adult without complication 12/31/2018 Abdominal pain 06/19/2018 Other constipation 03/08/2018 Overview: Added automatically from request for surgery [id number] Irritable bowel syndrome with constipation 03/08/2018 Overview: Added automatically from request for surgery [id number] Excessive or frequent menstruation 09/22/2017 Cyst of right ovary 09/22/2017 Morbid obesity with body mass index of 40.0-49.9 06/22/2017 Abdominal pain, right upper quadrant 06/02/2017 Overview: Added automatically from request for surgery [id number] Tobacco use disorder 03/08/2017 Pain pelvic 03/08/2017 Obesity (BMI 30-39.9) 04/30/2016 documented as of this encounter (statuses as of 04/16/2019) Immunizations Name Administration Dates Next Due Tdap [...] Signs Not on filedocumented in this encounter Progress Notes Margy Carlton, PT - 04/16/2019 4:00 PM CST Physical Therapy Treatment Date: April 16, 2019 Subjective: Pt reports she is not doing well, she is walking more at work and is in a lot of pain, her brace isn't helping her that much anymore 1. Chronic pain of left knee 2. Decreased muscle strength Objective: Outpatient PT Treatment Row Name 04/16/19 1600 General Visit Number 10 Chart Reviewed Yes Family/Caregiver Present No General Comments Visit 2 of 8 Pain Assessment Pain Assessment 0-10 Pain Score 10 - Worst possible pain Pain Location Knee Pain Orientation Left Therapeutic Exercise Therapeutic Exercise Activity 1 Stretches: HS Stretch 3x30", Heel slides 5"x10 Therapeutic Exercise Activity 2 SAQ, SAQ w/ ER(unable due to pain), SLR's x10ea, Quad sets 5"x2' Therapeutic Exercise Acitivity 3 Hip adduction w/ ball x 15, Hip abduction w/ TB L2 x 15 Manual Therapy Manual Therapy Activity 1 0-97 AROM Manual Therapy Activity 2 Modalities Moist Heat (min) 10' to left knee Cryotherapy (Minutes\\Location) 10' to left knee Electrical Stimulation (Parameters) 10'HP/10'CP Assessment: Pt with the ability to perform exercises, however, she is doing them in a lot of pain. Patient with edema present specifically the medial aspect of her knee and this is the most painful portion of her knee. Plan: Patient to continue with POC focusing on strengthening, decreasing pain, and increasing overall mobility. Margy Gutierrez, PT [place] PT License [id number] [facility] Department (phone) (fax) documented in this encounter Plan of Treatment Date Type Specialty Care Team Description 04/18/2019 Ancillary Visit Physical Therapy Yumiko Zapien, PT [address] [place] [address] 04/26/2019 Office Visit Orthopedic Surgery Brandyn Armando MD [address] [facility] [id number] [place] [address] [phone] Health Maintenance Due Date Last Done Comments PNEUMOCOCCAL 0-64 YEARS COMBINED SERIES (1 of - 1993 PPSV23) INFLUENZA VACCINE (#1) 2018 PAP SMEAR 03/08/2020 03/08/2017 DTaP,Tdap,and Td Vaccines (2 - Td) 12/02/2026 12/02/2016 documented as of this encounter Goals Goal Patient Goal Associated Recent Patient-Stated? 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
--- OUTSIDE RECORDS SUMMARY | 2019-05-22 18:03 | XMS REPORT | Summary of Care ---
:1985 Author Organization [facility] Address [address] [place] [address] Care Team Providers Name Role Phone Jesse Mclaughlin MD Primary Care Provider Reason for Visit Reason Comments Refill Request Encounter Details Date Type Department Care Team Description 04/15/2019 Refill [facility] Family Medicine Jesse Mclaughlin MD Refill Request - [address] [phone] [place] [phone] Allergies Active Allergy Reactions Severity Noted Date Comments Codeine Other - See comments 02/07/2017 Bad stomach pain Ibuprofen Other - See comments 12/23/2016 Severe abdominal pain Metoclopramide Hcl Anxiety 06/21/2018 Massive documented as of this encounter (statuses as of 04/17/2019) Medications Medication Sig Dispensed Refills Start End Date Status Date albuterol 2.5 mg Inhale 3 mL 100 Each 12 Active /3 mL (0.083 %) every 4 7 nebulizer (four) hours solutionIndication as needed for s: Mild persistent Wheezing or asthma without Shortness of complication Breath. HYDROcodone-acetam TAKE 1 TABLET 0 Active inophen 5-325 mg TWICE A DAY 7 tablet FOR 28 DAY(S) sod Use 1 Bottle 1 Each 0 Active lqsfe-goqkli-osnxv in each 8 z bottle (NEILMED nostril 2 SINUS RINSE (two) times COMPLETE) pkdv daily. Use in hot shower 1 hour before bedtime Omeprazole 20 mg Take by 0 Active tablet mouth 2 (two) times daily. SYMBICORT 160-4.5 INHALE 2 10.2 Inhaler 8 Active mcg/actuation PUFFS 2 (TWO) 8 inhalerIndications TIMES DAILY. : Mild persistent asthma without complication fluocinonide-emoll Apply to 60 g 3 Active ient 0.05 % area(s) 2 8 creamIndications: (two) times Seborrheic daily. dermatitis dicyclomine Take 1 tablet 60 tablet 2 Active (BENTYL) 20 mg by mouth 3 8 tabletIndications: (three) times Irritable bowel daily as syndrome with needed for constipation Abdominal pain. busPIRone 15 mg Take 15 mg by 0 Active tablet mouth 3 (three) times daily. benzonatate Take 1 20 capsule 0 Active (TESSALON PERLES) capsule by 8 100 mg mouth 3 capsuleIndications (three) times : Viral URI daily. fluticasone 50 Use 2 Sprays 16 g 0 Active mcg/actuation in each 8 nasal nostril sprayIndications: daily. Viral URI norethindrone-ethi 0 Active nyl estradiol 1-20 8 mg-mcg per tablet PREDNISONE, BULK, 0 Active MISC proMETHazine 25 mg Take 1 tablet 12 tablet 0 Active tabletIndications: by mouth 9 Epigastric pain, every 6 (six) Enteritis hours as needed for Nausea and Vomiting (N/V). divalproex 250 mg Take 250 mg 0 Active EC tablet by mouth at bedtime. elagolix 150 mg Take 1 tablet 30 tablet 4 Active TabIndications: by mouth 9 Endometriosis, daily. Pain pelvic NORTRIPTYLINE 25 TAKE 1 90 capsule 0 Active mg CAPSULE BY 9 capsuleIndications MOUTH AT : Irritable bowel BEDTIME syndrome with constipation pentazocine-naloxo Take 1 tablet 7 tablet 0 Active ne 50-0.5 mg by mouth 9 tabletIndications: every 6 (six) Chronic pain of hours as left knee needed for Pain. loratadine 10 mg Take 1 tablet 30 tablet 12 Active tabletIndications: by mouth 9 Viral URI daily. sumatriptan Take 1 tablet 9 tablet 12 Active (IMITREX) 100 mg by mouth as 9 tabletIndications: needed for Intractable Migraine. migraine without aura and without status migrainosus albuterol (PROAIR INHALE TWO 8.5 Each 0 Active HFA) 90 PUFFS BY 9 mcg/actuation MOUTH EVERY 6 inhalerIndications HOURS : Mild persistent NEEDED FOR asthma without WHEEZING AND complication FCOR SHORTNESS OF BREATH diclofenac 75 mg Take 1 tablet 60 tablet 1 Active EC by mouth 2 9 tabletIndications: (two) times Left knee pain, daily with unspecified meals. chronicity tiZANidine 4 mg Take 1 tablet 30 tablet 0 Active tabletIndications: by mouth 0 Acute pain of left every 6 (six) knee hours as needed (knee pain). tiZANidine 4 mg Take 1 tablet 30 tablet 0 04/15/19 Discontinued tabletIndications: by mouth 9 20 (Reorder) Acute pain of left every 6 (six) knee hours as needed (knee pain). documented as of this encounter (statuses as of 04/17/2019) Active Problems Problem Noted Date Asthma in adult without complication 12/31/2018 Abdominal pain 06/19/2018 Other constipation 03/08/2018 Overview: Added automatically from request for surgery [id number] Irritable bowel syndrome with constipation 03/08/2018 Overview: Added automatically from request for surgery [id number] Excessive or frequent menstruation 09/22/2017 Cyst of right ovary 09/22/2017 Morbid obesity with body mass index of 40.0-49.9 06/22/2017 Abdominal pain, right upper quadrant 06/02/2017 Overview: Added automatically from request for surgery [id number] Tobacco use disorder 03/08/2017 Pain pelvic 03/08/2017 Obesity (BMI 30-39.9) 04/30/2016 documented as of this encounter (statuses as of 04/17/2019) Immunizations Name Administration Dates Next Due Tdap [...] Visit Physical Therapy Yumiko Zapien, PT [address] [place] [address] 04/26/2019 Office Visit Orthopedic Surgery Brandyn Armando MD [address] [facility] [id number] [place], [place] [phone] Health Maintenance Due Date Last Done Comments PNEUMOCOCCAL 0-64 YEARS COMBINED SERIES (1 of - 1993 PPSV23) INFLUENZA VACCINE (#1) 2018 PAP SMEAR 03/08/2020 03/08/2017 DTaP,Tdap,and Td Vaccines (2 - Td) 12/02/2026 12/02/2016 documented as of this encounter Goals Goal Patient Goal Associated Recent Patient-Stated? 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
--- OUTSIDE RECORDS SUMMARY | 2019-05-22 18:03 | XMS REPORT | Summary of Care ---
:1985 Author Organization [facility] Address [address] [place] [address] Care Team Providers Name Role Phone Jesse Mclaughlin MD Primary Care Provider Reason for Visit Reason Comments Follow-up (Routine) Status Reason Specialty Diagnoses / Referred By Referred To Procedures Contact Contact Authorized Physical Therapy Diagnoses Pain in left knee Other chronic pain Muscle weakness (generalized) Gt Lewis Dandy, Procedures [place] THERAPEUTIC EXERCISES [place] NEUROMUSC REEDUCAT,1+ AREAS, EA 15 MIN [place] MANUAL THER TECH,1+REGIONS,EA 15 MIN [place] THERAPEUT ACTVITY DIRECT PT CONTACT EACH 15 MIN [place] SELF-CARE/HOME MGMT TRAINING EACH 15 MINUTES FOLLOW-UP 45 MD Margy Reed, PT [address] [phone] Encounter Details Date Type Department Care Team Description 04/08/2019 Ancillary Visit [facility] Gt Lewis MD [address] [place] [address] Chronic pain of left knee (Primary Dx); Physical Therapy- Yumiko Zapien, PT [address] [place] [address] Decreased muscle strength [facility] [address] [place] [address] Dr. Wagner [address] [place] [phone] Allergies Active Allergy Reactions Severity Noted Date [...] Bottle in 1 Each 0 04/13/2017 Active bkkfo-qiinhb-egayfc each nostril 2 bottle (NEILMED SINUS (two) [...] Overview: Added automatically from request for surgery [id number] Irritable bowel syndrome with constipation 03/08/2018 Overview: Added automatically from request for surgery [id number] Excessive or frequent menstruation 09/22/2017 Cyst of right ovary 09/22/2017 Morbid obesity with body mass index of 40.0-49.9 06/22/2017 Abdominal pain, right upper quadrant 06/02/2017 Overview: Added automatically from request for surgery [id number] Tobacco use disorder 03/08/2017 Pain pelvic 03/08/2017 [...] on filedocumented in this encounter Progress Notes Yumiko Zapien, PT - 04/08/2019 4:00 PM CST Re-Evaluation Date: April 08, 2019 Date of initial visit: 03/07/2019 Date of last visit: 04/08/2019 Total number of visits: 8 Diagnosis: 1. Chronic pain of left knee 2. Decreased muscle strength Subjective: Patient stated R knee buckled right before she get off from work today but no fall. Medication helps to a degree with the pain.Stubbing pain on L knee at night. Patient stated her L knee donell constantly. When putting any kind of pressure on L knee patient hears grinding and poppingwhen using stair to get to her apartment approx. 15 steps. Objective: Outpatient PT Evaluation and Re-Evaluation Row Name 04/08/19 1600 General Visit Number 8 Chart Reviewed Yes Family/Caregiver Present No General Comments Visit 8 of 8 Pain Assessment Pain Assessment 0-10 Pain Score 8 Pain Location Knee Pain Orientation Left General Assessments: Initial Evaluation Measurements; Knee Assessments Right Knee Assessments: (WFL) Left Knee Assessments: Observations;Active range of motion;Strength Left Knee Observations L Knee Presents With: Swelling;Knee effusion L Knee Anatomical Alignment: Genu recurvatum L Knee Tenderness: Medial joint line;MCL;Quadriceps;Medial hamstring;Biceps femoris;Patellar inferior pole;Patellar tendon Left Knee Active Range of Motion L Knee AROM Flexion: 85(Pain) L Knee AROM Extension: 0(Pain) Right Knee Strength R Knee Strength Flexion: 5/5 R Knee Strength Extension: 5/5 Left Knee Strength L Knee Strength Flexion: 4-/5 L Knee Strength Extension: 4/5(Painful) , Valgus Stress: R (+), L (-) Varus Stress: R (+), L (-) Austin's: R (+), L (-) Reverse Austin's: R (-), L (-) Today's Measurements; Left Knee Observations L Knee Presents With: Swelling;Knee effusion L Knee Anatomical Alignment: Genu recurvatum L Knee Tenderness: Medial joint line;MCL;Quadriceps;Medial hamstring;Biceps femoris;Patellar inferior pole;Patellar tendon Left Knee Active Range of Motion L Knee AROM Flexion: 71(Pain) L Knee AROM Extension: 0(Pain) Activity Tolerance: Fair Today's Treatment: Outpatient PT Treatment Row Name 04/08/19 1600 Therapeutic Exercise Therapeutic Exercise Activity 1 Stretches: HS Stretch 3x30", Heel slides 5"x10 Therapeutic Exercise Activity 2 SAQ, SAQ w/ ER, SLR's x10ea, Quad sets 5"x2' Therapeutic Exercise Acitivity 3 Hip adduction w/ ball x 15, Hip abduction w/ TB L2 x 15 Manual Therapy Manual Therapy Activity 1 0-71 AAROM Modalities Moist Heat (min) 10' to left knee Cryotherapy (Minutes\\Location) 10' to left knee A: Patient showed very slow progressed with L knee pain that pain is less in some other days and increase pain on L knee on other days. Mainly her pain level when she comes to PT usually between 8-10 pain scale level. Recommend to continue PT to address above functional mobility deficit and to see herdoctor for further medical evaluation. Goals: The following goals are to maximize independence and safety with functional mobility to eventually return to prior living situation and prior functional status. Progress towards goals set at initial Evaluation: Short Term Goals: To be met in 4 visits: 1. Pt will be Ind with HEP (MET) 2. Pt will report decreased pain to <10/10 on average (MET) 3. Patient will increase ROM of L knee by 10 degrees of flexion to improve mobility. (NOT MET) 4. Pt will increase strength by 1/2 grade to improve mobility. (NOT MET) Chcf Goals: To be met in 8 visits: 1. Pt will report decreased pain to <6/10 on average (NOT MET) 2. Pt will increase ROM of L knee by 20 degrees of flexion to improve mobility. (NOT MET) 3. Pt will be able to perform gait and functional tasks without increased pain. (NOT MET) Updated Goals: In 4 weeks, patient and/or family will demonstrate: 1.Pt will be Ind with HEP 2.Patient will increase ROM of L knee by 10 degrees of flexion to improve mobility. 3.Pt will increase strength by 1/2 grade to improve mobility. 4.Pt will report decreased pain to <6/10 on average 5.Pt will increase ROM of L knee by 20 degrees of flexion to improve mobility. 6.Pt will be able to perform gait and functional tasks without increased pain. Plan of Care Thera ex, thera act, manual therapy prn, modalities prn, gait trg, and patient education. Frequency: 1-2x/week Duration: 4 weeks Yumiko Zapien,[place] License: [id number] documented in this encounter Plan of Treatment Date Type Specialty Care Team Description 04/16/2019 Ancillary Visit Physical Therapy Margy Carlton, PT [address] [place] [address] 04/17/2019 Ancillary Visit Physical Therapy Lizeht Harry PTA [address] [place] [address] 04/26/2019 Office Visit Orthopedic Surgery Brandyn Armando MD [id number] [place] [address] [phone] Health Maintenance Due Date Last Done Comments PNEUMOCOCCAL 0-64 YEARS COMBINED SERIES (1 of - 1993 PPSV23) INFLUENZA VACCINE (#1) 2018 PAP SMEAR 03/08/2020 03/08/2017 DTaP,Tdap,and Td Vaccines (2 - Td) 12/02/2026 12/02/2016 documented as of this encounter Goals Goal Patient Goal Associated Recent Patient-Stated? Author Type Problems Progress Decrease pain General No Margy Carlton, PT Note: Be able to function better without pain documented as of this encounter Results Not on filedocumented in this encounter Visit Diagnoses Diagnosis Chronic pain of left knee - Primary Pain in joint, lower leg Decreased muscle strength Muscle weakness (generalized) documented in this encounter Insurance Payer Benefit Plan / Subscriber ID Effective Dates Phone Address Type Group [facility] xxxxxxxxx 2017-[employer] Medicaid COMM PLAN - PLUS t MANAGED MEDICAID ([place]) [place] [address] documented as of this encounter
--- OUTSIDE RECORDS SUMMARY | 2019-05-22 18:04 | XMS REPORT | Summary of Care ---
:1985 Author Organization [facility] Address [address] [place] [id number] Care Team Providers Name Role Phone Jesse Mclaughlin MD Primary Care Provider Reason for Visit Reason Comments Follow-up (Routine) Status Reason Specialty Diagnoses / Referred By Referred To Procedures Contact Contact Closed Physical Therapy Diagnoses Pain in left knee Other chronic pain Muscle weakness (generalized) Gt Lewis Dandy, Procedures OR THERAPEUTIC EXERCISES OR NEUROMUSC REEDUCAT,1+ AREAS, EA 15 MIN OR MANUAL THER TECH,1+REGIONS,EA 15 MIN OR THERAPEUT ACTVITY DIRECT PT CONTACT EACH 15 MIN OR SELF-CARE/HOME MGMT TRAINING EACH 15 MINUTES FOLLOW-UP 45 MD Margy Reed, PT [address] [place] [phone] [place], [place] Phone: [phone] Encounter Details Date Type Department Care Team Description 04/18/2019 Ancillary Visit [facility] Gt Lewis MD [address] [place] [address] Chronic pain of left knee (Primary Dx); Physical Therapy- Yumiko Zapien, PT [address] [place] [phone] Decreased muscle strength [employer] [facility] [address] [place] [address] [address]. [address] [place] [phone] Allergies Active Allergy Reactions Severity Noted Date Comments Codeine Other - See comments 02/07/2017 Bad stomach pain Ibuprofen Other - See comments 12/23/2016 Severe abdominal pain Metoclopramide Hcl Anxiety 06/21/2018 Massive documented as of this encounter (statuses as of 04/18/2019) Medications Medication Sig Dispensed Refills Start Date [...] Bottle in 1 Each 0 04/13/2017 Active njouy-vxyyjz-sjdlwb each nostril 2 bottle (NEILMED SINUS (two) [...] without status migrainosus albuterol (PROAIR INHALE TWO PUFFS 8.5 Each 0 03/25/2019 Active HFA) 90 mcg/actuation BY MOUTH EVERY 6 inhalerIndications: HOURS NEEDED Mild persistent FOR WHEEZING AND asthma without FCOR SHORTNESS complication OF BREATH diclofenac 75 mg EC Take 1 tablet by 60 tablet 1 04/01/2019 Active tabletIndications: mouth 2 (two) Left knee pain, times daily with unspecified meals. chronicity tiZANidine 4 mg Take 1 tablet by 30 tablet 0 04/17/2019 Active tabletIndications: mouth every 6 Acute pain of left (six) hours as knee needed (knee pain). documented as of this encounter (statuses as of 04/18/2019) Active Problems Problem Noted Date Asthma in adult without complication 12/31/2018 Abdominal pain 06/19/2018 Other constipation 03/08/2018 Overview: Added automatically from request for surgery [id number] Irritable bowel syndrome with constipation 03/08/2018 Overview: Added automatically from request for surgery [id number] Excessive or frequent menstruation 09/22/2017 Cyst of right ovary 09/22/2017 Morbid obesity with body mass index of 40.0-49.9 06/22/2017 Abdominal pain, right upper quadrant 06/02/2017 Overview: Added automatically from request for surgery [id number] Tobacco use disorder 03/08/2017 Pain pelvic 03/08/2017 Obesity (BMI 30-39.9) 04/30/2016 documented as of this encounter (statuses as of 04/18/2019) Immunizations Name Administration Dates Next Due Tdap [...] encounter Progress Notes Yumiko Zapien, PT - 04/18/2019 8:30 AM CST Physical Therapy Treatment Date: April 18, 2019 Subjective: Patient stated that her L knee pain is 10/10 no improvement and she is due to see her orthopedic doctor on 04/26/2019. 1. Chronic pain of left knee 2. Decreased muscle strength Objective: Outpatient PT Treatment Row Name 04/18/19 0800 General Chart Reviewed Yes Family/Caregiver Present No Pain Assessment Pain Assessment 0-10 Pain Score 10 - Worst possible pain Post-Treatment Pain Score 10 - Worst possible pain Pain Location Knee Pain Orientation Left Therapeutic Exercise Therapeutic Exercise Activity 1 Stretches: HS Stretch 3x30", Heel slides 5"x10 Therapeutic Exercise Activity 2 SAQ , SLR's x10ea, Quad sets 5"x2' Therapeutic Exercise Acitivity 3 Hip adduction w/ ball x 15, Hip abduction w/ TB L2 x 15 Manual Therapy Manual Therapy Activity 1 0-97 AROM Modalities Moist Heat (min) 10' to left knee Cryotherapy (Minutes\\Location) 10' to left knee Electrical Stimulation (Parameters) 10'HP/10'CP Assessment: Patient has difficulty and slow in performing therapeutic exercises due to pain L knee. Patient painlevel after PT remains 10/10 and patient is going to work after PT. Plan: Patient to continue with POC focusing on strengthening, decreasing pain, and increasing overall mobility. Yumiko Zapien,PT [place] License: [id number] documented in this encounter Plan of Treatment Date Type Specialty Care Team Description 04/26/2019 Office Visit Orthopedic Surgery Brandyn Armando MD [id number] [place] [address] [phone] Health Maintenance Due Date Last Done Comments PNEUMOCOCCAL 0-64 YEARS COMBINED SERIES (1 of 1 - 1993 PPSV23) INFLUENZA VACCINE (#1) 2018 PAP SMEAR 03/08/2020 03/08/2017 DTaP,Tdap,and Td Vaccines (2 - Td) 12/02/2026 12/02/2016 documented as of this encounter Goals Goal Patient Goal Associated Recent Patient-Stated? 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, 5:13 PM [employer]) [place] Ji Note: Be able to function better without pain documented as of this encounter Results Not on filedocumented in this encounter Visit Diagnoses Diagnosis Chronic pain of left knee - Primary Pain in joint, lower leg Decreased muscle strength Muscle weakness (generalized) documented in this encounter Insurance Payer Benefit Plan / Subscriber ID Effective Dates Phone Address Type Group [facility] xxxxxxxxx [facility] Medicaid COMM PLAN - PLUS t MANAGED MEDICAID (Home) [place] [address] documented as of this encounter
--- OUTSIDE RECORDS SUMMARY | 2019-05-22 18:04 | XMS REPORT | Summary of Care ---
:1985 Author Organization [facility] Address [address] [place] [address] Care Team Providers Name Role Phone Jesse Mclaughlin MD Primary Care Provider Reason for Visit Reason Comments Knee Pain left Encounter Details Date Type Department Care Team Description 04/26/2019 Office Visit [facility] Orthopaedic Brandyn Armando, Tear of medial meniscus of left knee, current, unspecified tear type, initial encounter (Primary Dx); Surgery- Saúl ROMERO Left knee pain, unspecified chronicity [address] [address] [address] [place] [address] [id number] [place], [place] [address] Allergies Active Allergy Reactions Severity Noted Date Comments Codeine Other - See comments 02/07/2017 Bad stomach pain Ibuprofen Other - See comments 12/23/2016 Severe abdominal pain Metoclopramide Hcl Anxiety 06/21/2018 Massive documented as of this encounter (statuses as of 04/26/2019) Medications Medication Sig Dispensed Refills Start Date [...] Bottle in 1 Each 0 04/13/2017 Active klwjj-mogyzc-hkgujp each nostril 2 bottle (NEILMED SINUS (two) [...] as of this encounter (statuses as of 04/26/2019) Active Problems Problem Noted Date Left knee pain, unspecified chronicity 04/26/2019 Overview: Added automatically from request for surgery [id number] Asthma in adult without complication 12/31/2018 Abdominal pain 06/19/2018 Other constipation 03/08/2018 Overview: Added automatically from request for surgery [id number] Irritable bowel syndrome with constipation 03/08/2018 Overview: Added automatically from request for surgery [id number] Excessive or frequent menstruation 09/22/2017 Cyst of right ovary 09/22/2017 Morbid obesity with body mass index of 40.0-49.9 06/22/2017 Abdominal pain, right upper quadrant 06/02/2017 Overview: Added automatically from request for surgery [id number] Tobacco use disorder 03/08/2017 Pain pelvic 03/08/2017 Obesity (BMI 30-39.9) 04/30/2016 documented as of this encounter (statuses as of 04/26/2019) Immunizations Name Administration Dates Next Due Tdap [...] Sign Reading Time Taken Comments Blood Pressure - - Pulse - - Temperature 36.9 C (98.5 F) 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 Anish Mensah DO adha Melgoza - 04/26/2019 8:00 AM CST CHIEF COMPLAINT We were asked to see this patient to give my opinion regarding Vanessa Ramachandran, 33 year old, female who presents with Left- knee pain. HISTORY OF PRESENT ILLNESS Interval History 04/26/2019: Vanessa Ramachandran is a 34 year old female who is present for follow-up of left knee. Pt reports continued pain, discomfort, popping sensation, swelling and restricted range of motion despite PT, NSAIDs, and RICE. Pt desires to pursue surgical intervention at this time. 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 Complaints: Pain and Stiffness Instability- Effusions Previous [place]/PT: none Previous Injury- none Past Medical History Past Medical History: Diagnosis Date ADHD (attention deficit hyperactivity disorder) at age 5 Anxiety age 14 Asthma in adult without complication 12/31/2018 Bipolar 1 disorder 2002 Breast disorder breast discharge since age 17 Depression Endometriosis 2010 Esophageal reflux Past Surgical History Past Surgical History: Procedure Laterality Date CHOLECYSTECTOMY 08/2016 COLONOSCOPY N/A 06/22/2017 Surgeon: Olayinka Shell MD; Location: [place] [facility] Location COLONOSCOPY N/A 05/01/2018 Surgeon: Jeferson Ryder MD; Location: [place] [facility] Location ESOPHAGOGASTRODUODENOSCOPY N/A 06/22/2017 Surgeon: Olayinka Shell MD; Location: [place] [facility] Location ESOPHAGOGASTRODUODENOSCOPY N/A 06/21/2018 Surgeon: Sindhu Rowland MD; Location: [facility] OR Location EXPLORATORY LAPAROTOMY 2010 endometriosis MYRINGOTOMY as a child x 3 Allergies Allergies Allergen Reactions Codeine Other - See comments Bad stomach pain Ibuprofen Other - See comments Severe abdominal pain Reglan [Metoclopramide Hcl] Anxiety Massive Medications Current Outpatient Medications Medication Sig Dispense Refill tiZANidine 4 mg tablet Take 1 tablet by mouth every 6 (six) hours as needed (knee pain). 30 tablet 0 diclofenac 75 mg EC tablet Take 1 tablet by mouth 2 (two) times daily with meals. 60 tablet 1 albuterol (PROAIR HFA) 90 mcg/actuation inhaler INHALE TWO PUFFS BY MOUTH EVERY 6 HOURS NEEDED FOR WHEEZING AND FCOR SHORTNESS OF BREATH 8.5 Each 0 loratadine 10 mg tablet Take 1 tablet by mouth daily. 30 tablet 12 sumatriptan (IMITREX) 100 mg tablet Take 1 tablet by mouth as needed for Migraine. 9 tablet 12 pentazocine-naloxone 50-0.5 mg tablet Take 1 tablet by mouth every 6 (six) hours as needed for Pain. 7 tablet 0 NORTRIPTYLINE 25 mg capsule TAKE 1 CAPSULE BY MOUTH AT BEDTIME 90 capsule 0 elagolix 150 mg Tab Take 1 tablet by mouth daily. 30 tablet 4 divalproex 250 mg EC tablet Take 250 mg by mouth at bedtime. proMETHazine 25 mg tablet Take 1 tablet by mouth every 6 (six) hours as needed for Nausea and Vomiting (N/V). 12 tablet 0 PREDNISONE, BULK, MISC norethindrone-ethinyl estradiol 1-20 mg-mcg per tablet benzonatate (TESSALON PERLES) 100 mg capsule Take [...] by mouth 2 (two) times daily. sod ippgp-mhiqtw-kxowqb bottle (NEILMED SINUS RINSE COMPLETE) pkdv Use [...] No current facility-administered medications for this visit. Social History Social History Tobacco Use Smoking status: Current Every Day Smoker Packs/day: 0.50 Years: 11.00 Pack years: 5.50 Types: Cigarettes Start date: 04/03/2005 Smokeless tobacco: Never Used Substance Use Topics Alcohol use: No Drug use: No Family History Family History Problem Relation Age of Onset [...] Mental retardation NoFHx Neurological NoFHx Osteoporosis NoFHx REVIEW OF SYSTEMS LB: negative S: negative Hip: negative Ankle Complaints: negative Card-Pulm: negative GI: negative : negative Constitutional: negative REVIEW OF SYSTEMS Patient denies constitutional symptoms, motor or sensory changes, cardiac and pulmonary symptoms, gastrointestinal and urinary symptoms or difficulties, and reports no calf pain or swelling. No acute changes in respiration, neurologic status, or psychiatric behavior. No acute changes to skin, vision, or mental status. PHYSICAL EXAMINATIONS Constitutional: alert and oriented x 3; no apparent distress, normal temperature HEENT: PERRLA; moist mucous membranes, appropriate muscular symmetry Respiratory: normal, without labor, appropriate exchange volumes, no rales Cardiovascular: appropriate capillary refill of extremities, regular rate, rhythm Abdomen: soft and non-tender, non-distressed, no abdominal extension Skin: skin color, texture and turgor are normal; no abnormal bruising, no rashes noted Neurologic: cranial nerves grossly intact; sensation grossly intact Psychiatric : no abnormal affect, appropriate, able to cooperate to baseline level Lower Back/Hip/Ankle Exam- ROM: Flexion- normal Extension- normal Rotation- normal Tenderness: negative SI Joint Tenderness: negative Ray's Test: negative Hip ROM: negative PNF / PNLS: negative Axial Compression R- negative L- negative G.T. Tenderness R- negative L- negative Gluteal Tenderness R- negative L- negative ABD's: negative I.T.: negative Ankle: Posterior Tib. Strength- normal Heel Cords 0- normal; 90- normal Knee Exam: Knee Alignment: normal Skin / Temperature: normal Effusion: Atrophy: negative Muscle Tone: normal ROM- Passive Extension: Flexion: ROM-Active Extension: as above Flexion: as above SLR: intact Instability (Hard / Soft end Points): General Ligament Laxity Anterior (Edgar's / Drawer): normal AL (Pivot-Jerk Test): negative Varus (0/30): normal/normal Valgus (0/30): normal/normal Posterior (Lach / Drawer): normal PL ( 30 / 90 ): negative ERRT: negative Recurvatum: negative Anterior tibial step-off: normal Quad Active test: normal Flexibility: Hamstrings ( Ant. Pop. Angle): normal Heel Cords: normal Meniscal Exam: Joint Line Tenderness Medial: negative Joint Line Tenderness Lateral: negative Austin ( Sympt / Mech ): negative Stress Test: negative Patello-Femoral: Apprehension: negative Translation 0 ( Medial- normal/ Lateral- normal) 30 (Medial- normal/ Lateral- normal) Tracking: normal Q> 0: normal 90: normal POLY: BAJA / NATALIO: VALG Fat Pad Tenderness: negative Plical Bands: negative Synovial Folds: negative Bone Palpation: Medial Femoral Condyle: negative Lateral Femoral Condyle: negative Fibular Head: negative Patella Femoral Articulation: negative medial/lateral Tibial Plateau: negative medial/lateral Epicondyles: negative medial/lateral Tibial Tubercle: negative Adduction Tibial Tubercle: negative Bursa/ Tendon Insertions/ Tendons: Patella Tenderness: negative Retinculum: negative medial/lateral VMO/VLO: negative Prepatella Bursa: negative Infrapatella Bursa: negative PES ANS: negative Popliteus: negative Biceps: negative Fibular Head: negative Semimembranosus: negative Gastrocnemius: negative medial/lateral Popliteal Space: negative Calf: negative Patella Femoral Crepitation: negative Tibial Femoral Crepitation: negative Neurovascular Status normal RADIOLOGY No new ASSESSMENT L Knee Medial meniscus contusion versus tear (MRI; possible post root tear) L Knee 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 Patient desires to pursue operative measures. Patient continues with significant/severe pain and dysfunction due to diagnosis/ condition despite non-operative measures which involve many of the following measures including activity modification, anti-inflammatory medicine and/or other over the counter medicines, history of previous injection therapy, occasional resting of extremity and/or bracing, and applied modalities and formal physical therapy or home therapeutic exercises. Individually, and collectively these measures have been insufficientin reducing pain and/or improving patient function, resulting in patient's desire to pursue surgicalcare /intervention. I discussed these diagnoses with Ms. Ramachandran. At this time she desires to schedule surgery; Left Knee Arthroscopy (LC) 05/02/2019, possible open procedure. I have offered and reviewed non operative measures as well as operative intervention. At this time she desires to pursue surgical care. Indications, operative risks, potential outcomes and benefits discussed and reviewed in detail. Operative risks discussed included but were not limited to infection, continued pain, increasing pain, no improvement, scarring, stiffness , loss of motion, need for lengthy rehabilitation in the postoperative phases, worsening of the condition, need for revision and/or further surgical care, fracture of bone, loosening of prosthesis or implants either in the short-term or long-term, compromise to life and/or limb, bleeding, blood clots, compartment syndrome issues, transfusion risks, allograft risks, potential injury to associated structures which may include nerve, vessel, muscle, tendon , ligament, and/or bone or cartilage which may result in loss of muscle strength , changes or losses in sensation, and/or limb dysfunction or deformity, less prevalent complications, unforeseen circumstances. These operative riskswere discussed within the context of the [facility] preoperative surgical consent form. Both written and verbal consent were obtained. All questions were answered and thoroughly reviewed. Pre- operative evaluation/clearance to be performed by primary care physician/ medical physician, anesthesia team, prior to operative intervention for evaluation of medical preparedness to undergo anesthesia and operative stress. Instructions for this/these evaluations weregiven to the patient and appropriate family/companions in attendance at clinic visit. Patient given pre-operative instructions. All findings and diagnosis were discussed with patient attime of visit. Patient states they understand and desire to pursue surgical care. Patient will return to clinic 7-10 days following surgical care for re- evaluation and discussion of post-operative care/ treatment. All findings and diagnosis were discussed with patient at time of visit. Patient states they understand and are in agreement with the treatment plan at this time, and thepost-operative visit has been scheduled. Scribe's Attestation IRadha am scribing for, and in the presence of, Brandyn Armando MD and resident who performed the services described here-in. Radha Melgoza, April 26, 2019, 8:49 AM documented in this encounter Plan of Treatment Date Type Specialty Care Team Description 05/02/2019 Hospital Encounter Surgery Brandyn Armando MD Left knee pain, [id number] unspecified chronicity [place], [place] [id number] 05/02/2019 Surgery Surgery Brandyn Armando MD KNEE ARTHROSCOPY [id number] [place], [place] [id number] Health Maintenance Due Date Last Done Comments PNEUMOCOCCAL 0-64 YEARS COMBINED SERIES (1 of 1 - 1993 PPSV23) INFLUENZA VACCINE (#1) 2018 PAP SMEAR 03/08/2020 03/08/2017 DTaP,Tdap,and Td Vaccines (2 - Td) 12/02/2026 12/02/2016 documented as of this encounter Goals Goal Patient Goal Associated Recent Patient-Stated? 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
--- OUTSIDE RECORDS SUMMARY | 2019-05-22 18:05 | XMS REPORT | Summary of Care ---
:1985 Author Organization [facility] - [facility] Address [address] [place] [address] Care Team Providers Name Role Phone Jesse Mclaughlin MD Primary Care Provider Reason for Visit Reason Comments Knee Pain left Encounter Details Date Type Department Care Team Description 04/26/2019 Office Visit [facility] Orthopaedic Brandyn Armando, Tear of medial meniscus of left knee, current, unspecified tear type, initial encounter (Primary Dx); Surgery- Saúl ROMERO Left knee pain, unspecified chronicity [address] [address] [address] [place] [address] [id number] [place], [place] [id number] Allergies Active Allergy Reactions Severity Noted Date [...] Bottle in 1 Each 0 04/13/2017 Active cwobu-neisst-aihujs each nostril 2 bottle (NEILMED SINUS (two) [...] Overview: Added automatically from request for surgery [id number] Asthma in adult without complication 12/31/2018 Abdominal pain 06/19/2018 Other constipation 03/08/2018 Overview: Added automatically from request for surgery [id number] Irritable bowel syndrome with constipation 03/08/2018 Overview: Added automatically from request for surgery [id number] Excessive or frequent menstruation 09/22/2017 Cyst of right ovary 09/22/2017 Morbid obesity with body mass index of 40.0-49.9 06/22/2017 Abdominal pain, right upper quadrant 06/02/2017 Overview: Added automatically from request for surgery [id number] Tobacco use disorder 03/08/2017 Pain pelvic 03/08/2017 [...] 36.9 C (98.5 F) 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 Respiratory Rate - - Oxygen Saturation - - Inhaled Oxygen Concentration - - Weight 111.7 kg (246 lb 3.2 oz) 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 Height - - Body Mass Index 43.61 03/15/2019 4:00 PM COAL MILL 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 documented in this encounter Progress Notes Anish [...] Injury/Duration: 05/18/17 Mechanism of Injury: hyperextension 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 Both written and [...] MD Left knee pain, [address] [id number] unspecified chronicity [place], [place] [phone] 05/02/2019 Surgery Surgery Brandyn Armando MD KNEE ARTHROSCOPY [id number] [place], [place] [phone] Health Maintenance Due Date Last Done Comments PNEUMOCOCCAL 0-64 YEARS COMBINED SERIES (1 of 1 - 1993 PPSV23) INFLUENZA VACCINE (#1) 2018 PAP SMEAR 03/08/2020 03/08/2017 DTaP,Tdap,and Td Vaccines (2 - Td) 12/02/2026 12/02/2016 documented as of this encounter Goals Goal Patient Goal Associated Recent Patient-Stated? 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) [place] Ji Note: Be able to function better without pain documented as of this encounter Results Not on filedocumented in this encounter Visit Diagnoses Diagnosis Tear of medial meniscus of left knee, current, unspecified tear type, initial encounter - Primary Left knee pain, unspecified chronicity documented in this encounter Insurance Payer Benefit Plan / Subscriber ID Effective Dates Phone Address Type Group [facility] xxxxxxxxx 2017-[facility] Medicaid COMM PLAN - PLUS t MANAGED MEDICAID (Home) [place] [address] documented as of this encounter
--- OUTSIDE RECORDS SUMMARY | 2019-05-22 18:05 | XMS REPORT | Summary of Care ---
:1985 Author Organization [facility] - [facility] Address [address] [place] [address] Care Team Providers Name Role Phone Jesse Mclaughlin MD Primary Care Provider Reason for Visit Reason Comments Assessment post op questions/concerns Encounter Details Date Type Department Care Team Description 05/08/2019 Telephone [facility] Orthopaedic Brandyn Armando, Assessment ( post op Surgery- [place] questions/concerns) [place] [address] [facility] [address] [facility] [id number] [place] [phone] Allergies Active Allergy Reactions Severity Noted Date Comments Codeine Other - See comments 02/07/2017 Bad stomach pain Ibuprofen Other - See comments 12/23/2016 Severe abdominal pain Metoclopramide Hcl Anxiety 06/21/2018 Massive documented as of this encounter (statuses as of 05/08/2019) Medications Medication Sig Dispensed Refills Start Date End Date Status albuterol 2.5 mg /3 Inhale 3 mL 100 Each 12 12/23/2016 Active mL (0.083 %) every 4 (four) nebulizer hours as needed solutionIndications: for Wheezing or Mild persistent Shortness of asthma without Breath. complication sod Use 1 Bottle in 1 Each 0 04/13/2017 Active pezit-paiiwk-gyvlfx each nostril 2 bottle (NEILMED (two) times SINUS RINSE daily. Use in COMPLETE) pkdv hot shower 1 hour before bedtime Omeprazole 20 mg Take by mouth 2 0 Active tablet (two) times daily. SYMBICORT 160-4.5 INHALE 2 PUFFS 2 10.2 Inhaler 8 01/01/2018 Active mcg/actuation (TWO) TIMES inhalerIndications: DAILY. Mild persistent asthma without complication fluocinonide-emollie Apply to 60 g 3 02/12/2018 Active nt 0.05 % area(s) 2 (two) creamIndications: times daily. Seborrheic dermatitis dicyclomine (BENTYL) Take 1 tablet by 60 tablet 2 03/08/2018 Active 20 mg mouth 3 (three) tabletIndications: times daily as Irritable bowel needed for syndrome with Abdominal pain. constipation busPIRone 15 mg Take 15 mg by 0 Active tablet mouth 3 (three) times daily. benzonatate Take 1 capsule 20 capsule 0 03/15/2018 Active (YANNI CUETO) by mouth 3 100 mg (three) times capsuleIndications: daily. Viral URI fluticasone 50 Use 2 Sprays in 16 g 0 03/15/2018 Active mcg/actuation nasal each nostril sprayIndications: daily. Viral URI norethindrone-ethiny 0 03/04/2018 Active l estradiol 1-20 mg-mcg per tablet PREDNISONE, BULK, [...] Active tabletIndications: mouth daily. Viral URI sumatriptan Take 1 tablet by 9 tablet 12 03/25/2019 Active (IMITREX) 100 mg mouth as needed tabletIndications: for Migraine. Intractable migraine without aura and without status migrainosus albuterol (PROAIR INHALE TWO PUFFS 8.5 Each 0 03/25/2019 Active HFA) 90 BY MOUTH EVERY 6 mcg/actuation HOURS NEEDED inhalerIndications: FOR WHEEZING AND Mild persistent FCOR SHORTNESS asthma without OF BREATH complication diclofenac 75 mg EC Take 1 tablet by 60 tablet 1 04/01/2019 Active tabletIndications: mouth 2 (two) Left knee pain, times daily with unspecified meals. chronicity tiZANidine 4 mg Take 1 tablet by 30 tablet 0 04/17/2019 Active tabletIndications: mouth every 6 Acute pain of left (six) hours as knee needed (knee pain). albuterol (PROAIR ProAir HFA 90 0 Active HFA) 90 mcg/actuation mcg/actuation aerosol inhaler inhaler lamoTRIgine 150 mg 0 04/19/2019 Active tablet HYDROcodone-acetamin Take 1 tablet by 20 tablet 0 05/02/2019 Active ophen (NORCO) 10-325 mouth every 6 mg (six) hours as tabletIndications: needed for Pain Synovitis of left (scale 4-6) or knee Pain (scale 7-10). methocarbamol 500 mg Take 1 tablet by 28 tablet 0 05/02/2019 05/09/2019 Active tabletIndications: mouth 4 (four) Synovitis of left times daily for knee 7 days. gabapentin 300 mg Take 1 capsule 21 capsule 0 05/02/2019 05/09/2019 Active capsuleIndications: by mouth 3 Synovitis of left (three) times knee daily for 7 days. documented as of this encounter (statuses as of 05/08/2019) Active Problems Problem Noted Date Left knee pain, unspecified chronicity 04/26/2019 Overview: Added automatically from request for surgery [id number] Asthma in adult without complication 12/31/2018 Abdominal pain 06/19/2018 Other constipation 03/08/2018 Overview: Added automatically from request for surgery [id number] Irritable bowel syndrome with constipation 03/08/2018 Overview: Added automatically from request for surgery [id number] Excessive or frequent menstruation 09/22/2017 Cyst of right ovary 09/22/2017 Morbid obesity with body mass index of 40.0-49.9 06/22/2017 Abdominal pain, right upper quadrant 06/02/2017 Overview: Added automatically from request for surgery [id number] Tobacco use disorder 03/08/2017 Pain pelvic 03/08/2017 Obesity (BMI 30-39.9) 04/30/2016 documented as of this encounter (statuses as of 05/08/2019) Immunizations Name Administration Dates Next Due Tdap 12/02/2016 documented as of this encounter Social History Tobacco Use Types Packs/Day Years Used Date Light Tobacco Smoker Cigarettes 0.5 11 Started: 04/03/2005 Smokeless Tobacco: Never Used Comments: slowly working on quitting, advised to speak w/MD regarding counseling/RX Alcohol Use Drinks/Week oz/Week Comments No Sex Assigned at Date Recorded Not on file Job Start Date Occupation Industry Not on file Not on file Not on file Travel History Travel Start Travel End No recent travel history available. documented as of this encounter Last Filed Vital Signs Not on filedocumented in this encounter Plan of Treatment Date Type Specialty Care Team Description 05/14/2019 Office Visit Orthopedic Surgery Brandyn Armando MD [id number] [place], [place] [id number] 05/16/2019 Ancillary Visit Physical Therapy Margy Carlton, PT [address] [place] [address] Health Maintenance Due Date Last Done Comments PNEUMOCOCCAL 0-64 YEARS COMBINED SERIES (1 of - 1993 PPSV23) INFLUENZA VACCINE (#1) 2018 PAP SMEAR 03/08/2020 03/08/2017 DTaP,Tdap,and Td Vaccines (2 - Td) 12/02/2026 12/02/2016 documented as of this encounter Goals Goal Patient Goal Associated Recent Patient-Stated? 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, 5:13 PM HAZARD MITIGATION OFFICER) [place] Ji Note: Be able to function better without pain documented as of this encounter Results Not on filedocumented in this encounter Insurance Payer Benefit Plan / Subscriber ID Effective Dates Phone Address Type Group [facility] xxxxxxxxx 2017-[place] Medicaid COMM PLAN - PLUS t MANAGED MEDICAID documented as of this encounter
--- OUTSIDE RECORDS SUMMARY | 2019-05-22 18:05 | XMS REPORT | Summary of Care ---
:1985 Author Organization [facility] - [facility] Address [address] [place] [address] Care Team Providers Name Role Phone Jesse Mclaughlin MD Primary Care Provider Reason for Visit Reason Comments Refill Request Encounter Details Date Type Department Care Team Description 05/17/2019 Refill [facility] Family Medicine Jesse Mclaughlin MD Refill Request - [address] [phone] [place] [phone] Allergies Active Allergy Reactions Severity Noted Date Comments Codeine Other - See comments 02/07/2017 Bad stomach pain Ibuprofen Other - See comments 12/23/2016 Severe abdominal pain Metoclopramide Hcl Anxiety 06/21/2018 Massive documented as of this encounter (statuses as of 05/17/2019) Medications Medication Sig Dispensed Refills Start End Date Status Date albuterol 2.5 mg Inhale 3 mL 100 Each 12 Active /3 mL (0.083 %) every 4 7 nebulizer (four) hours solutionIndication as needed for s: Mild persistent Wheezing or asthma without Shortness of complication Breath. sod Use 1 Bottle 1 Each 0 Active aurqb-frakjf-yekyi in each 8 z bottle (NEILMED nostril [...] migraine without aura and without status migrainosus diclofenac 75 mg Take 1 tablet 60 tablet 1 Active EC by mouth 2 9 tabletIndications: (two) times Left knee pain, daily with unspecified meals. chronicity tiZANidine 4 mg Take 1 tablet 30 tablet 0 Active tabletIndications: by mouth 0 Acute pain of left every 6 (six) knee hours as needed (knee pain). albuterol (PROAIR ProAir HFA 90 0 Active HFA) 90 mcg/actuation mcg/actuation aerosol inhaler inhaler lamoTRIgine 150 mg 0 Active tablet 0 HYDROcodone-acetam Take 1 tablet 20 tablet 0 Active inophen (NORCO) by mouth 0 10-325 mg every 6 (six) tabletIndications: hours as Synovitis of left needed for knee Pain (scale 4-6) or Pain (scale 7-10). albuterol (PROAIR INHALE TWO 8.5 Each 0 Active HFA) 90 PUFFS BY 0 mcg/actuation MOUTH EVERY 6 inhalerIndications HOURS : Mild persistent NEEDED FOR asthma without WHEEZING AND complication FCOR SHORTNESS OF BREATH albuterol (PROAIR INHALE TWO 8.5 Each 0 05/17/19 Discontinued HFA) 90 PUFFS BY 9 20 (Reorder) mcg/actuation MOUTH EVERY 6 inhalerIndications HOURS : Mild persistent NEEDED FOR asthma without WHEEZING AND complication FCOR SHORTNESS OF BREATH documented as of this encounter (statuses as of 05/17/2019) Active Problems Problem Noted Date Left knee pain, unspecified chronicity 04/26/2019 Overview: Added automatically from request for surgery [id number] Asthma in adult without complication 12/31/2018 Abdominal pain 06/19/2018 Other constipation 03/08/2018 Overview: Added automatically from request for surgery [id number] Irritable bowel syndrome with constipation 03/08/2018 Overview: Added automatically from request for surgery [id number] Excessive or frequent menstruation 09/22/2017 Cyst of right ovary 09/22/2017 Morbid obesity with body mass index of 40.0-49.9 06/22/2017 Abdominal pain, right upper quadrant 06/02/2017 Overview: Added automatically from request for surgery [id number] Tobacco use disorder 03/08/2017 Pain pelvic 03/08/2017 Obesity (BMI 30-39.9) 04/30/2016 documented as of this encounter (statuses as of 05/17/2019) Immunizations Name Administration Dates Next Due Tdap [...] Treatment Date Type Specialty Care Team Description 05/20/2019 Ancillary Visit Physical Therapy Gt Lewis MD [address] [place] [address] Yumiko Zapien, PT [address] [place] [address] 05/23/2019 Ancillary Visit Physical Therapy Gt Lewis MD [address] [place] [address] Yumiko Zapien, PT [address] [place] [address] 07/12/2019 Office Visit Orthopedic Surgery Brandyn Armando MD [id number] [place], [place] [phone] Health Maintenance Due Date Last Done Comments PNEUMOCOCCAL 0-64 YEARS COMBINED SERIES (1 of 1 - 1993 PPSV23) INFLUENZA VACCINE (#1) 2018 PAP SMEAR 03/08/2020 03/08/2017 DTaP,Tdap,and Td Vaccines (2 - Td) 12/02/2026 12/02/2016 documented as of this encounter Goals Goal Patient Goal Associated Recent Patient-Stated? 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, 5:13 PM MEASUREMENT COORDINATOR) [place] Ji Note: Be able to function better without pain documented as of this encounter Results Not on filedocumented in this encounter Visit Diagnoses Diagnosis Mild persistent asthma without complication Unspecified asthma documented in this encounter Insurance Payer Benefit Plan / Subscriber ID Effective Dates Phone Address Type Group [facility] xxxxxxxxx 2017-[facility] Medicaid COMM PLAN - PLUS t MANAGED MEDICAID documented as of this encounter
--- OUTSIDE RECORDS SUMMARY | 2019-05-22 18:06 | XMS REPORT | Summary of Care ---
:1985 Author Organization [facility] Address [address] [place] [address] Care Team Providers Name Role Phone Jesse Mclaughlin MD Primary Care Provider Reason for Referral (Routine) Status Reason Specialty Diagnoses / Referred By Referred To Procedures Contact Contact New Request Physical Therapy Diagnoses Tear of medial meniscus of left knee, current, unspecified tear type, initial encounter Brandyn Armando, Procedures CONSULT/REFERRAL PHYSICAL THERAPY Preferred location: ([facility]) [address] [place] [address] Reason for Visit Reason Comments Follow-up left knee Other (Routine) Status Reason Specialty Diagnoses / Referred By Referred To Procedures Contact Contact Closed Orthopedic Surgery Diagnoses Synovitis of left knee Brandyn Armando, Orthopedic Clinic Procedures Discharge Follow-up: Specialty Provider ORTHOPEDIC CLINIC, ; Other - See Comment (10-[address] Armando) [address] [place] [id number] [place] [address] Encounter Details Date Type Department Care Team Description 05/14/2019 Office Visit [facility]edic [facility] Armando[facility], [address] current, unspecified 2239 [facility] [address] tear type, initial 1.211 [place], [place] encounter (Primary Dx) [place] [phone] Allergies Active Allergy Reactions Severity Noted Date Comments Codeine Other - See comments 02/07/2017 Bad stomach pain Ibuprofen Other - See comments 12/23/2016 Severe abdominal pain Metoclopramide Hcl Anxiety 06/21/2018 Massive documented as of this encounter (statuses as of 05/14/2019) Medications Medication Sig Dispensed Refills Start Date End Date Status albuterol 2.5 mg /3 Inhale 3 mL 100 Each 12 12/23/2016 Active mL (0.083 %) every 4 (four) nebulizer hours as needed solutionIndications: for Wheezing or Mild persistent Shortness of asthma without Breath. complication sod Use 1 Bottle in 1 Each 0 04/13/2017 Active igyqj-umlpqk-pojaas each nostril 2 bottle (NEILMED SINUS (two) [...] 90 0 Active HFA) 90 mcg/actuation mcg/actuation inhaler aerosol inhaler lamoTRIgine 150 mg 0 04/19/2019 Active tablet HYDROcodone-acetamino Take 1 tablet by 20 tablet 0 05/02/2019 Active phen (NORCO) 10-325 mouth every 6 mg tabletIndications: (six) hours as Synovitis of left needed for Pain knee (scale 4-6) or Pain (scale 7-10). documented as of this encounter (statuses as of 05/14/2019) Active Problems Problem Noted Date Left knee pain, unspecified chronicity 04/26/2019 Overview: Added automatically from request for surgery [id number] Asthma in adult without complication 12/31/2018 Abdominal pain 06/19/2018 Other constipation 03/08/2018 Overview: Added automatically from request for surgery [id number] Irritable bowel syndrome with constipation 03/08/2018 Overview: Added automatically from request for surgery [id number] Excessive or frequent menstruation 09/22/2017 Cyst of right ovary 09/22/2017 Morbid obesity with body mass index of 40.0-49.9 06/22/2017 Abdominal pain, right upper quadrant 06/02/2017 Overview: Added automatically from request for surgery [id number] Tobacco use disorder 03/08/2017 Pain pelvic 03/08/2017 Obesity (BMI 30-39.9) 04/30/2016 documented as of this encounter (statuses as of 05/14/2019) Immunizations Name Administration Dates Next Due Tdap [...] Sign Reading Time Taken Comments Blood Pressure 127/79 05/14/2019 10:25 AM RELISH BLENDER Pulse 98 05/14/2019 10:25 AM RELISH BLENDER Temperature 37.1 C (98.7 F) 05/14/2019 10:25 AM RELISH BLENDER Respiratory Rate - - Oxygen Saturation - - Inhaled Oxygen Concentration - - Weight 110.9 kg (244 lb 8 oz) 05/14/2019 10:25 AM RELISH BLENDER Height 160 cm (5' 3") 05/14/2019 10:25 AM RELISH BLENDER Body Mass Index 43.31 05/14/2019 10:25 AM RELISH BLENDER documented in this encounter Progress Notes Greg Taylor MD - 05/14/2019 9:45 AM CSTI, Dr. Sebastian Taylor, personally interviewed, examined, and/or ordered the services described in this document, as scribed by Ericka Chauhan in my presence, and it is both accurate and complete. Sebastian Taylor MD 05/14/19 uring, Ericka Sierra - 05/14/2019 9:45 AM CST CHIEF COMPLAINT Vanessa Ramachandran, a female, who presents for follow up of left knee. 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 She reports improvementin pain and swelling. She begins PT on 05/16/2019. Patient has returned to work with restrictions. 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, plical fibrosis excision Left knee medial femoral condyle / compartment chondroplasty, G2; shallow, linear focal L Knee Medial meniscus contusion versus tear (MRI; possible post root tear) 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 It has been discussed that supervised and professionally directed therapy was necessary to optimize outcome and prevent complications of condition, and that this should be continued by the patient on a home exercise basis. Formal physical therapy prescribed and the importance of compliance with rehabilitation has been emphasized with the patient. It has been discussed that supervised and professionally directed therapy is necessary to optimize outcome and prevent complications of condition. 1-2 times a week for 4-6 weeks ([facility]) Precautions and post - operative instructions were discussed and reviewed in detail with patient andfamily/companions with patient at visit. These were understood by the patient and the important role of patient compliance in obtaining surgical outcome and avoiding complications of condition was emphasized. Patient, family/companions present at clinic visit, instructed on appropriate activity modification involving no aggressive/strenuous activities, indicated home exercises, indicated anti-inflammatory medicine or other over the counter analgesic, rest, and modalities. A detailed discussion held regarding precautions for weight bearing status and appropriate and inappropriate utilization of involved extremity(ies) in order to assist healing, limit risks to healing, and optimize patient outcome. Questions reviewed and answered. Martinez/sutures removed and steri strips placed after incision cleansed. Patient will return to clinic in 8 weeks for re-evaluation and discussion of treatment options. All findings and diagnosis were discussed with patient at time of visit. Patient states they understand and are in agreement with the treatment plan at this time. Jadenibe's Attestation Ericka Muniz am scribing for and in the presence of Brandyn Armando MD and resident Dr. Taylor. Brandyn Armando MD performed the services described herein. Ericka Chauhan, May 14, 2019, 10:59 AM documented in this encounter Plan of Treatment Date Type Specialty Care Team Description 05/16/2019 Ancillary Visit Physical Therapy Margy Carlton, PT [address] [place] [address] 07/12/2019 Office Visit Orthopedic Surgery Brandyn Armando MD [id number] [place], [place] [id number] Health Maintenance Due Date Last Done Comments PNEUMOCOCCAL 0-64 YEARS COMBINED SERIES ( - 1993 PPSV23) INFLUENZA VACCINE (#1) 2018 PAP SMEAR 03/08/2020 03/08/2017 DTaP,Tdap,and Td Vaccines (2 - Td) 12/02/2026 12/02/2016 documented as of this encounter Goals Goal Patient Goal Associated Recent Patient-Stated? 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, 5:13 PM RELISH BLENDER) [place] Ji Note: Be able to function better without pain documented as of this encounter Results Not on filedocumented in this encounter Visit Diagnoses Diagnosis Tear of medial meniscus of left knee, current, unspecified tear type, initial encounter - Primary documented in this encounter Insurance Payer Benefit Plan / Subscriber ID Effective Dates Phone Address Type Group [facility] xxxxxxxxx 2017-[facility] Medicaid COMM PLAN - PLUS t MANAGED MEDICAID (Home) [place] [address] documented as of this encounter
--- OUTSIDE RECORDS SUMMARY | 2019-05-22 18:06 | XMS REPORT | Summary of Care ---
:1985 Author Organization [facility] Address [address] [place] [address] Care Team Providers Name Role Phone Jesse Mclaughlin MD Primary Care Provider Reason for Referral (Routine) Status Reason Specialty Diagnoses / Referred By Referred To Procedures Contact Contact New Request Physical Therapy Diagnoses Tear of medial meniscus of left knee, current, unspecified tear type, initial encounter Brandyn Armando, Procedures CONSULT/REFERRAL PHYSICAL THERAPY Preferred location: ([facility]) [address] [place] [address] Reason for Visit Reason Comments Follow-up left knee Other (Routine) Status Reason Specialty Diagnoses / Referred By Referred To Procedures Contact Contact Closed Orthopedic Surgery Diagnoses Synovitis of left knee Brandyn Armando, Orthopedic Clinic Procedures Discharge Follow-up: Specialty Provider ORTHOPEDIC CLINIC, ; Other - See Comment (10-[address] Armando) [address] [place] [id number] [place] [id number] Encounter Details Date Type Department Care Team Description 05/14/2019 Office Visit [facility]edic [facility]yn Armando[facility], [address] current, unspecified 2239 [facility] [id number] tear type, initial 1.211 [place], [place] encounter (Primary Dx) [place] [phone] Allergies Active Allergy Reactions Severity Noted [...] Bottle in 1 Each 0 04/13/2017 Active esljk-lowtvl-ibkpgx each nostril 2 bottle (NEILMED SINUS (two) [...] Overview: Added automatically from request for surgery [id number] Asthma in adult without complication 12/31/2018 Abdominal pain 06/19/2018 Other constipation 03/08/2018 Overview: Added automatically from request for surgery [id number] Irritable bowel syndrome with constipation 03/08/2018 Overview: Added automatically from request for surgery [id number] Excessive or frequent menstruation 09/22/2017 Cyst of right ovary 09/22/2017 Morbid obesity with body mass index of 40.0-49.9 06/22/2017 Abdominal pain, right upper quadrant 06/02/2017 Overview: Added automatically from request for surgery [id number] Tobacco use disorder 03/08/2017 Pain pelvic 03/08/2017 [...] Comments Blood Pressure 127/79 05/14/2019 10:25 AM FIELD REPRESENTATIVE Pulse 98 05/14/2019 10:25 AM FIELD REPRESENTATIVE Temperature 37.1 C (98.7 F) 05/14/2019 10:25 AM FIELD REPRESENTATIVE Respiratory Rate - - Oxygen Saturation - - Inhaled Oxygen Concentration - - Weight 110.9 kg (244 lb 8 oz) 05/14/2019 10:25 AM FIELD REPRESENTATIVE Height 160 cm (5' 3") 05/14/2019 10:25 AM FIELD REPRESENTATIVE Body Mass Index 43.31 05/14/2019 10:25 AM FIELD REPRESENTATIVE documented in this encounter Progress Notes Greg [...] joint disease - mild H/o Obesity 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[place], tX Social: Ref: Dr Gt Lewis Meds: Treatments: h/o PT ([facility]), Duplex doppler completed, t/c ATS PLAN/OPTIONS Home [...] Visit Physical Therapy Margy Carlton, PT [address] [place] [address] 07/12/2019 Office Visit Orthopedic Surgery Brandyn Armando MD [id number] [place], [place] [address] Health Maintenance Due Date Last Done Comments PNEUMOCOCCAL 0-64 YEARS COMBINED SERIES ( - 1993 PPSV23) INFLUENZA VACCINE (#1) 2018 PAP SMEAR 03/08/2020 03/08/2017 DTaP,Tdap,and Td Vaccines (2 - Td) 12/02/2026 12/02/2016 documented as of this encounter Goals Goal Patient Goal Associated Recent Patient-Stated? 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, 5:13 PM FIELD REPRESENTATIVE) [place] Ji Note: Be able to function better without pain documented as of this encounter Results Not on filedocumented in this encounter Visit Diagnoses Diagnosis Tear of medial meniscus of left knee, current, unspecified tear type, initial encounter - Primary documented in this encounter Insurance Payer Benefit Plan / Subscriber ID Effective Dates Phone Address Type Group [facility] xxxxxxxxx 2017-[facility] Medicaid COMM PLAN - PLUS t MANAGED MEDICAID (Home) [place] [address] documented as of this encounter
--- OUTSIDE RECORDS SUMMARY | 2019-05-22 18:06 | XMS REPORT | Summary of Care ---
:1985 Author Organization [facility] Address [address] [place] [address] Care Team Providers Name Role Phone Jesse Mclaughlin MD Primary Care Provider Reason for Visit Reason Comments Assessment Encounter Details Date Type Department Care Team Description 05/17/2019 Telephone [facility] Orthopaedic Brandyn Armando MD Assessment Surgery- [facility] 301 [facility] [id number] 2240 [facility] 1.[address] [place] [address] [place] [phone] Allergies Active Allergy Reactions Severity Noted Date Comments Codeine Other - See comments 02/07/2017 Bad stomach pain Ibuprofen Other - See comments 12/23/2016 Severe abdominal pain Metoclopramide Hcl Anxiety 06/21/2018 Massive documented as of this encounter (statuses as of 05/17/2019) Medications Medication Sig Dispensed Refills Start Date End Date Status albuterol 2.5 mg /3 Inhale 3 mL 100 Each 12 12/23/2016 Active mL (0.083 %) every 4 (four) nebulizer hours as needed solutionIndications: for Wheezing or Mild persistent Shortness of asthma without Breath. complication sod Use 1 Bottle in 1 Each 0 04/13/2017 Active aelqg-cvnwpm-ixrzbj each nostril 2 bottle (NEILMED SINUS (two) [...] and without status migrainosus diclofenac 75 mg EC Take 1 tablet [...] knee (scale 4-6) or Pain (scale 7-10). albuterol (PROAIR INHALE TWO PUFFS 8.5 Each 0 05/17/2019 Active HFA) 90 mcg/actuation BY MOUTH EVERY 6 inhalerIndications: HOURS NEEDED Mild persistent FOR WHEEZING AND asthma without FCOR SHORTNESS complication OF BREATH traMADol 50 mg tablet Take 1 tablet by 40 tablet 0 05/17/2019 Active mouth every 6 (six) hours as needed for Pain (scale 4-6). documented as of this encounter (statuses as of 05/17/2019) Active Problems Problem Noted Date Left knee pain, unspecified chronicity 04/26/2019 Overview: Added automatically from request for surgery [id number] Asthma in adult without complication 12/31/2018 Abdominal pain 06/19/2018 Other constipation 03/08/2018 Overview: Added automatically from request for surgery [id number] Irritable bowel syndrome with constipation 03/08/2018 Overview: Added automatically from request for surgery [id number] Excessive or frequent menstruation 09/22/2017 Cyst of right ovary 09/22/2017 Morbid obesity with body mass index of 40.0-49.9 06/22/2017 Abdominal pain, right upper quadrant 06/02/2017 Overview: Added automatically from request for surgery [id number] Tobacco use disorder 03/08/2017 Pain pelvic 03/08/2017 [...] Physical Therapy Gt Lewis MD [address] [place] [address] Yumiko Zapien, PT [address] [place] [address] 05/23/2019 Ancillary Visit Physical Therapy Gt Lewis MD [address] [place] [address] Yumiko Zapien, PT [address] [place] [address] 07/12/2019 Office Visit Orthopedic Surgery Brandyn Armando MD [address] [id number] [place], [place] [phone] Health Maintenance Due Date Last Done Comments PNEUMOCOCCAL 0-64 YEARS COMBINED SERIES (1 of 1 - 1993 PPSV23) INFLUENZA VACCINE (#1) 2018 PAP SMEAR 03/08/2020 03/08/2017 DTaP,Tdap,and Td Vaccines (2 - Td) 12/02/2026 12/02/2016 documented as of this encounter Goals Goal Patient Goal Associated Recent Patient-Stated? 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 xxxxxxxxx 2017-[place] Medicaid COMM PLAN - PLUS t MANAGED MEDICAID documented as of this encounter
--- OUTSIDE RECORDS SUMMARY | 2019-05-22 18:07 | XMS REPORT | Summary of Care ---
:1985 Author Organization [facility] Address [address] [place] [address] Care Team Providers Name Role Phone Jesse Mclaughlin MD Primary Care Provider Reason for Visit Reason Comments Follow-up (Routine) Status Reason Specialty Diagnoses / Referred By Referred To Procedures Contact Contact Authorized Physical Therapy Diagnoses Synovitis of left knee Brandyn Armando Adc Physical Procedures CONSULT/REFERRAL PHYSICAL THERAPY AR PHYSICAL THERAPY EVALUATION LOW COMPLEX 20 MINS AR PHYSICAL THERAPY EVALUATION MOD COMPLEX 30 MINS AR PHYSICAL THERAPY EVALUATION HIGH COMPLEX 45 MINS AR THERAPEUTIC EXERCISES MD Therapy AR NEUROMUSC REEDUCAT,1+ AREAS, EA 15 MIN AR MANUAL THER TECH,1+REGIONS,EA 15 MIN AR THERAPEUT ACTVITY DIRECT PT CONTACT EACH 15 MIN AR SELF-CARE/HOME MGMT TRAINING EACH 15 MINUTES [address] [facility] Professional [id number] Office Building [address] Phone: [address] [place], [place] Fax: [phone] Encounter Details Date Type Department Care Team Description 05/20/2019 Ancillary Visit [facility] Gt Lewis MD [address] [place] [address] [place] [address] Decreased muscle strength (Primary Dx); Physical Therapy- Yumiko Zapien, PT [address] [place] [address] Acute pain of left knee; [place] Antalgic gait; Professional Office Chronic pain of left knee [address] [place] [phone] Allergies Active Allergy Reactions Severity Noted Date Comments Codeine Other - See comments 02/07/2017 Bad stomach pain Ibuprofen Other - See comments 12/23/2016 Severe abdominal pain Metoclopramide Hcl Anxiety 06/21/2018 Massive documented as of this encounter (statuses as of 05/21/2019) Medications Medication Sig Dispensed Refills Start Date End Date Status albuterol 2.5 mg /3 Inhale 3 mL 100 Each 12 12/23/2016 Active mL (0.083 %) every 4 (four) nebulizer hours as needed solutionIndications: for Wheezing or Mild persistent Shortness of asthma without Breath. complication sod Use 1 Bottle in 1 Each 0 04/13/2017 Active iqbpc-ldejil-kqpzkc each nostril 2 bottle (NEILMED SINUS (two) [...] as of this encounter (statuses as of 05/21/2019) Active Problems Problem Noted Date Left knee pain, unspecified chronicity 04/26/2019 Overview: Added automatically from request for surgery [id number] Asthma in adult without complication 12/31/2018 Abdominal pain 06/19/2018 Other constipation 03/08/2018 Overview: Added automatically from request for surgery [id number] Irritable bowel syndrome with constipation 03/08/2018 Overview: Added automatically from request for surgery [id number] Excessive or frequent menstruation 09/22/2017 Cyst of right ovary 09/22/2017 Morbid obesity with body mass index of 40.0-49.9 06/22/2017 Abdominal pain, right upper quadrant 06/02/2017 Overview: Added automatically from request for surgery [id number] Tobacco use disorder 03/08/2017 Pain pelvic 03/08/2017 Obesity (BMI 30-39.9) 04/30/2016 documented as of this encounter (statuses as of 05/21/2019) Immunizations Name Administration Dates Next Due Tdap [...] encounter Progress Notes Yumiko Zapien, PT - 05/20/2019 4:40 PM CST Physical Therapy Treatment Date: May 20, 2019 Subjective: Patient stated that she has 10/10 pain level today and she has been in a lot of pain over the weekend. Patient reported that she felt her back leg muscle lock on her. That putting pressurehurts her. 1. Decreased muscle strength 2. Acute pain of left knee 3. Antalgic gait 4. Chronic pain of left knee Objective: Outpatient PT Treatment Row Name 05/20/19 1715 Pain Assessment Pain Assessment 0-10 Pain Score 10 - Worst possible pain Post-Treatment Pain Score 9 Pain Location Knee Pain Orientation Left Pain Descriptors Aching;Sharp General Comments L Knee ROM: 74 AAROM Therapeutic Exercise Therapeutic Exercise Activity 1 Stretches=HS Streth 3x30", Heel slides, 5"x5 Therapeutic Exercise Activity 2 SAQs x 10, SLR's=AAROM x 10, Hip Adduciton w/ ball, Hip Abduction w/ TB, L2 x 15ea Modalities Moist Heat (min) 10 with Estim Assessment: Patient performed slow therapeutic exercises due to pain on L knee and showed decrease L knee ROM. PT educate patient the importance of continuing her HEP to reach PT goals. Plan: Patient to continue with POC focusing on strengthening, decreasing pain, and increasing overall mobility. Yumiko Zapien,PT [place] License: [id number] documented in this encounter Plan of Treatment Date Type Specialty Care Team Description 05/23/2019 Ancillary Visit Physical Therapy Gt Lewis MD [address] [place] [phone] Yumiko Zapien, PT [address] [place] [address] 07/12/2019 Office Visit Orthopedic Surgery Brandyn Armando MD [address] [facility] [id number] [place], [place] [id number] Health Maintenance Due Date Last Done Comments PNEUMOCOCCAL 0-64 YEARS COMBINED SERIES (1 of 1 - 1993 PPSV23) INFLUENZA VACCINE (#1) 2018 PAP SMEAR 03/08/2020 03/08/2017 DTaP,Tdap,and Td Vaccines (2 - Td) 12/02/2026 12/02/2016 documented as of this encounter Goals Goal Patient Goal Associated Recent Patient-Stated? 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) Margy, PT Note: Be able to function better without pain documented as of this encounter Results Not on filedocumented in this encounter Visit Diagnoses Diagnosis Decreased muscle strength - Primary Muscle weakness (generalized) Acute pain of left knee Antalgic gait Abnormality of gait Chronic pain of left knee Pain in joint, lower leg documented in this encounter Insurance Payer Benefit Plan / Subscriber ID Effective Dates Phone Address Type Group [facility] xxxxxxxxx 2017-[facility] Medicaid COMM PLAN - PLUS t MANAGED MEDICAID (Home) [place] [address] documented as of this encounter
--- OUTSIDE RECORDS SUMMARY | 2019-05-22 18:07 | XMS REPORT | Summary of Care ---
:1985 Author Organization [facility] Address [address] [place] [id number] Care Team Providers Name Role Phone Jesse Mclaughlin MD Primary Care Provider Reason for Visit Reason Comments New Evaluation (Routine) Status Reason Specialty Diagnoses / Referred By Referred To Procedures Contact Contact Pending Review Physical Therapy Diagnoses Synovitis of left knee Brandyn Armando Adc Physical Procedures CONSULT/REFERRAL PHYSICAL THERAPY DE PHYSICAL THERAPY EVALUATION LOW COMPLEX 20 MINS DE PHYSICAL THERAPY EVALUATION MOD COMPLEX 30 MINS DE PHYSICAL THERAPY EVALUATION HIGH COMPLEX 45 MINS DE THERAPEUTIC EXERCISES MD Therapy DE NEUROMUSC REEDUCAT,1+ AREAS, EA 15 MIN DE MANUAL THER TECH,1+REGIONS,EA 15 MIN DE THERAPEUT ACTVITY DIRECT PT CONTACT EACH 15 MIN DE SELF-CARE/HOME MGMT TRAINING EACH 15 MINUTES [address] [facility] [id number] Office Building [address] Phone: [address] [place], [place] Fax: [phone] Encounter Details Date Type Department Care Team Description 05/16/2019 Ancillary Visit [facility] Gt Lewis MD [address] [place] [address] [place] [address] Decreased muscle strength (Primary Dx); Physical Therapy- Margy Carlton, PT [address] [place] [address] Acute pain of left knee; Adrian Antalgic gait Professional Office Building [address] [place] [address] [address] [place] [address] Allergies Active Allergy Reactions Severity Noted Date Comments Codeine Other - See comments 02/07/2017 Bad stomach pain Ibuprofen Other - See comments 12/23/2016 Severe abdominal pain Metoclopramide Hcl Anxiety 06/21/2018 Massive documented as of this encounter (statuses as of 05/20/2019) Medications Medication Sig Dispensed Refills Start End Date Status Date albuterol 2.5 mg Inhale 3 mL 100 Each 12 Active /3 mL (0.083 %) every 4 7 nebulizer (four) hours solutionIndication as needed for s: Mild persistent Wheezing or asthma without Shortness of complication Breath. sod Use 1 Bottle 1 Each 0 Active [id number] in each 8 z bottle (NEILMED nostril [...] as of this encounter (statuses as of 05/20/2019) Active Problems Problem Noted Date Left knee pain, unspecified chronicity 04/26/2019 Overview: Added automatically from request for surgery [id number] Asthma in adult without complication 12/31/2018 Abdominal pain 06/19/2018 Other constipation 03/08/2018 Overview: Added automatically from request for surgery [id number] Irritable bowel syndrome with constipation 03/08/2018 Overview: Added automatically from request for surgery [id number] Excessive or frequent menstruation 09/22/2017 Cyst of right ovary 09/22/2017 Morbid obesity with body mass index of 40.0-49.9 06/22/2017 Abdominal pain, right upper quadrant 06/02/2017 Overview: Added automatically from request for surgery [id number] Tobacco use disorder 03/08/2017 Pain pelvic 03/08/2017 Obesity (BMI 30-39.9) 04/30/2016 documented as of this encounter (statuses as of 05/20/2019) Immunizations Name Administration Dates Next Due Tdap [...] encounter Progress Notes Margy Carlton, PT - 05/16/2019 3:00 PM CST Initial Evaluation Date: May 16, 2019 Diagnosis: 1. Decreased muscle strength 2. Acute pain of left knee 3. Antalgic gait Date of onset: 05/02/2019- DOS History of Condition: Pt presents to clinic for evaluation of her L knee, S/P Knee scope. Pt with initial injury a year ago when she got injured at work, patient improved and was feeling much better than her pain began at a later time , almost impossible to walk and do her regular functional tasks without pain. Patient went to MD who then ordered PT. Pt failed PT, her pain remained the same if not worsened. MD went in and performed a scope on her L Knee. Patient here today to begin her OP therapy post op. Patient denies tingling but some numbness is present surrounding her incision. Patient with difficulty walking because she is not using any AD to assist with her gait. Knowledge of condition: Good Quality of life: Fair Prior physical therapy: Yes - for her knee Patient Goals: Goals Decrease pain Be able to function better without pain Past Medical History: Diagnosis Date ADHD (attention deficit hyperactivity disorder) at age 5 Anxiety age 14 Asthma in adult without complication 12/31/2018 Bipolar 1 disorder 2002 Breast disorder breast discharge since age 17 Cyst of right ovary Depression Endometriosis 2010 Esophageal reflux Past Surgical History: Procedure Laterality Date CHOLECYSTECTOMY 08/2016 CHONDROPLASTY ARTH KNEE (SHX) Left 05/02/2019 Surgeon: Brandyn Armando MD; Location: [facility] COLONOSCOPY N/A 06/22/2017 Surgeon: Olayinka Shell MD; Location: [facility] Location COLONOSCOPY N/A 05/01/2018 Surgeon: Jeferson Ryder MD; Location: [facility] Location ESOPHAGOGASTRODUODENOSCOPY N/A 06/22/2017 Surgeon: Olayinka Shell MD; Location: [facility] Location ESOPHAGOGASTRODUODENOSCOPY N/A 06/21/2018 Surgeon: Sindhu Rowland MD; Location: [facility] OR Location EXPLORATORY LAPAROTOMY 2010 endometriosis KNEE ARTHROSCOPY Left 05/02/2019 Surgeon: Brandyn Armando MD; Location: [facility] [place]ul MYRINGOTOMY as a child x 3 SYNOVECTOMY Left 05/02/2019 Surgeon: Brandyn Armando MD; Location: [facility] Location Objective: Outpatient PT Evaluation and Re-Evaluation Row Name 05/16/19 1500 General Visit Number 1 Chart Reviewed Yes Family/Caregiver Present Yes and son present General Comments Visit 1 of 8, needs AT Modifier Precautions Precautions WBAT Pain Assessment Pain Assessment 0-10 Pain Score 6 Post-Treatment Pain Score 4 Pain Location Knee Pain Orientation Left Pain Descriptors Aching;Sharp Pain Type Acute pain;Surgical pain;Chronic pain;Deep somatic pain Pain Frequency Intermittent Pain Onset Gradual Clinical Progression Gradually improving Effect of Pain on Daily Activities Not able to play with son, hard to work since she has a physical job, she is on light duty right now Patient's Stated Pain Goal No pain Pain Interventions Cold applied Home Living Type of Home Apartment Apartment on the 2nd floor Lives With Spouse;Son Home Adaptive Equipment Crutches Home Layout Stairs to alternate level with rails;Two level Alternate Level Stairs-Rails Both Alternate Level Stairs-Number of Steps 14 Home Access Stairs to enter with rails Entrance Stairs-Rails Both Entrance Stairs-Number of Steps 14 Bathroom Shower/Tub Prior Function Level of [place] Independent with ADLs and functional transfers; Independent with homemaking with ambulation Receives Help From Family ADL Assistance Independent Homemaking Assistance Independent 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 Activity Tolerance Endurance Endurance does not limit participation in activity Sitting Balance Moves/returns trunkal midpoint more than 2 inches in all planes Sensation Therapy Sensation Options Numbness at Surgical area on medial side of knee and just above patella. Static Sitting Balance Static Sitting-Balance Support No upper extremity supported;Feet supported; Feet unsupported Static Sitting-Level of Assistance Independent Dynamic Sitting Balance Dynamic Sitting-Balance Support Feet unsupported;Feet supported;No upper extremity supported Static Standing Balance Static Standing-Balance Support No upper extremity supported Static Standing-Level of Assistance Independent Dynamic Standing Balance Dynamic Standing-Balance Support Unilateral upper extremity supported Ambulation Ambulation Yes Ambulation 1 Surface 1 Level tile Device 1 No device pt has crutches at home Assistance 1 Independent Quality of Gait 1 antalgic pattern present=decreased stance time on LLE, decreased knee flexion inswing. RUE Assessment RUE Assessment WFL LUE Assessment LUE Assessment WFL RLE Assessment RLE Assessment WFL LLE Assessment LLE Assessment X See Knee flow sheet for details. OTHER Date Pain First Started 05/02/19 Result of Injury No Work-Related Injury No General Assessments: Knee Assessments Right Knee Assessments: (WFL) Left Knee Assessments: Active range of motion;Strength;Gait;Observations Left Knee Observations L Knee Presents With: Swelling;Incision;Knee effusion L Knee Tenderness: Medial joint line;Quadriceps;Patellar tendon;Medial hamstring Left Gait Assessment L Weight Bearing Status: WBAT L Assistive Device: Other (Comment)(Pt owns a cane and crutches but not with them today) L Gait Comment: Decreased stance time on the LLE, decreased kne flexion in swing and decreased knee extension in stance. Left Knee Active Range of Motion L Knee AROM Flexion: 92 L Knee AROM Extension: 3 Left Knee Strength L Knee Strength Flexion: 3-/5 L Knee Strength Extension: 4-/5 Treatment: See Outpatient PT Treatment Flowsheet Assessment: Pt presents to clinic with decreased ROM, decreased strength, and decreased functional mobility. Patient with pain but not as significant as it was previous to surgery. Patient with gait impairments as well. Patient will benefit from skilled PT intervention to improve mobility. Rehab potential: good Facilitators to goal achievement: Good family support, High motivation, Adequate resources for care and Previous Functional Ability Barriers to goal achievement: Medical complexity and Pain Short Term Goals: To be met in 4 visits: 1. Pt will be Ind with HEP 2. Pt will increase ROM of L knee by 10 degrees to improve mobility. 3. Pt will increase strength by 1/2 grade to improve mobility. 4. Pt will be able to perform gait with increased stance time on LLE, increased knee flexion in swing and increased knee extension in stance. 5. Patient will report less pain to <5/10 on average to improve mobility. Halfway Goals: To be met in 8 visits: 1. Pt will improve ROM of LLE to at least 115 degrees 2. Pt will increase strength by 1 grade to improve mobility 3. Pt will be able to perform gait with least restrictive device or no device at all with equal stance time and no pain 4. Pt will report decreased pain to <2/10 on average. Plan of Care There ex, there act, manual therapy prn, modalities prn, and patient education. Frequency: 2x/week Duration: 8 sessions I have discussed the risks and benefits of the above plan with Vanessajessika Ramachandran. She is awareof the diagnosis and potential to improve. She participated in the setting of the goals and understands the importance of complying with the treatment plan, including home instruction. She agreed to the above frequency and duration of rehab services. Patient- Family Teaching: Patient, Family member and Significant other provided with preferred teaching of verbal information and demonstration on PT POC and goals. Shows readiness to learn. Verbal instruction teaching provided. Individual is able to read and verbalizes understanding of teaching provided and accurately returns demonstration of skill. Margy Gutierrez, PT [place] PT License [id number] [facility] Rehabilitation Services Department (phone) (fax) Required Components in Determining Evaluation Level Components for Eval Level Low Moderate High History No comorbidities 1-2 comorbidities or personal factors x 3 or more comorbidities or personal factors Body Systems 1-2 elements x 3 or more elements 4 or more elements Clinical Presentation Stable Evolving x Unstable Clinical Decision Making x documented in this encounter Plan of Treatment Date Type Specialty Care Team Description 05/23/2019 Ancillary Visit Physical Therapy Gt Lewis MD [address] [place] [phone] Yumiko Zapien, PT [address] [place] [address] 07/12/2019 Office Visit Orthopedic Surgery Brandyn Armando MD [address] [facility] [id number] [place], [place] [id number] Health Maintenance Due Date Last Done Comments PNEUMOCOCCAL 0-64 YEARS COMBINED SERIES (1 of - 1993 PPSV23) INFLUENZA VACCINE (#1) 2018 PAP SMEAR 03/08/2020 03/08/2017 DTaP,Tdap,and Td Vaccines (2 - Td) 12/02/2026 12/02/2016 documented as of this encounter Goals Goal Patient Goal Associated Recent Patient-Stated? 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
--- OUTSIDE RECORDS SUMMARY | 2019-05-22 18:07 | XMS REPORT | Summary of Care ---
:1985 Author Organization [facility] - [facility] Address [address] [place] [id number] Care Team Providers Name Role Phone Jesse Mclaughlin MD Primary Care Provider Reason for Referral (Routine) Status Reason Specialty Diagnoses / Referred By Referred To Procedures Contact Contact New Request Physical Therapy Diagnoses Synovitis of left knee Brandyn Armando, Procedures CONSULT/REFERRAL PHYSICAL THERAPY [address] [place] [id number] Other (Routine) Status Reason Specialty Diagnoses / Referred By Referred To Contact Procedures Contact New Request Diagnoses Synovitis of left knee Brandyn Armando, Orthopedic Clinic Procedures Discharge Follow-up: Specialty Provider ORTHOPEDIC CLINIC, ; Other - See Comment (10-[address] Armando) [address] [place] [id number] [place] [id number] Reason for Visit Auth/Cert Status Reason Specialty Diagnoses / Procedures Referred By Contact Referred To Contact Surgery Diagnoses Left knee pain, unspecified chronicity [M25.562] Vl Preop Procedures [facility] CODING HELP KNEE ARTHROSCOPY [address] [place] [address] Encounter Details Date Type Department Care Team Description 05/02/2019 Hospital Encounter [facility] Brandyn Ortega, Left knee pain, [facility] Post Anesthesia unspecified Care Unit [address] chronicity [address] [facility] [id number] [place], [place] [id number] [phone] Allergies Active Allergy Reactions Severity Noted Date Comments Codeine Other - See comments 02/07/2017 Bad stomach pain Ibuprofen Other - See comments 12/23/2016 Severe abdominal pain Metoclopramide Hcl Anxiety 06/21/2018 Massive documented as of this encounter (statuses as of 05/02/2019) Medications Medication Sig Dispensed Refills Start Date End Date Status albuterol 2.5 mg Inhale 3 mL 100 Each 12 12/23/2016 Active /3 mL (0.083 %) every 4 (four) nebulizer hours as solutionIndication needed for s: Mild persistent Wheezing or asthma without Shortness of complication Breath. sod Use 1 Bottle 1 Each 0 04/13/2017 Active ubymv-zzcgty-ujkkt in each z bottle (NEILMED nostril 2 [...] Active nyl estradiol 1-20 mg-mcg per tablet PREDNISONE, BULK, 0 Active MISC proMETHazine 25 mg Take 1 tablet 12 tablet 0 06/17/2018 Active tabletIndications: by mouth every Epigastric pain, 6 (six) hours Enteritis as needed for Nausea and Vomiting (N/V). divalproex 250 mg Take 250 mg by 0 Active EC tablet mouth at bedtime. elagolix 150 mg Take 1 tablet 30 tablet 4 07/13/2018 Active TabIndications: by mouth Endometriosis, daily. Pain pelvic NORTRIPTYLINE 25 TAKE 1 CAPSULE 90 capsule 0 09/11/2018 Active mg BY MOUTH AT capsuleIndications BEDTIME : Irritable bowel syndrome with constipation pentazocine-naloxo Take 1 tablet 7 tablet 0 02/07/2019 Active ne 50-0.5 mg by mouth every tabletIndications: 6 (six) hours Chronic pain of as needed for left knee Pain. loratadine 10 mg Take 1 tablet 30 tablet 12 03/25/2019 Active tabletIndications: by mouth Viral URI daily. sumatriptan Take 1 tablet 9 tablet 12 03/25/2019 Active (IMITREX) 100 mg by mouth as tabletIndications: needed for Intractable Migraine. migraine without aura and without status migrainosus albuterol (PROAIR INHALE TWO 8.5 Each 0 03/25/2019 Active HFA) 90 PUFFS BY MOUTH mcg/actuation EVERY 6 HOURS inhalerIndications NEEDED FOR : Mild persistent WHEEZING AND asthma without FCOR SHORTNESS complication OF BREATH diclofenac 75 mg Take 1 tablet 60 tablet 1 04/01/2019 Active EC by mouth 2 tabletIndications: (two) times Left knee pain, daily with unspecified meals. chronicity tiZANidine 4 mg Take 1 tablet 30 tablet 0 04/17/2019 Active tabletIndications: by mouth every Acute pain of left 6 (six) hours knee as needed (knee pain). albuterol (PROAIR ProAir HFA 90 0 Active HFA) 90 mcg/actuation mcg/actuation aerosol inhaler inhaler lamoTRIgine 150 mg 0 04/19/2019 Active tablet HYDROcodone-acetam Take 1 tablet 20 tablet 0 05/02/2019 Active inophen (NORCO) by mouth every 10-325 mg 6 (six) hours tabletIndications: as needed for Synovitis of left Pain (scale knee 4-6) or Pain (scale 7-10). methocarbamol 500 Take 1 tablet 28 tablet 0 05/02/2019 Active mg by mouth 4 0 tabletIndications: (four) times Synovitis of left daily for 7 knee days. gabapentin 300 mg Take 1 capsule 21 capsule 0 05/02/2019 Active capsuleIndications by mouth 3 0 : Synovitis of (three) times left knee daily for 7 days. HYDROcodone-acetam TAKE 1 TABLET 0 02/17/2017 Discontinued inophen 5-325 mg TWICE A DAY 0 tablet FOR 28 DAY(S) documented as of this encounter (statuses as of 05/02/2019) Active Problems Problem Noted Date Left knee pain, unspecified chronicity 04/26/2019 Overview: Added automatically from request for surgery [id number] Asthma in adult without complication 12/31/2018 Abdominal pain 06/19/2018 Other constipation 03/08/2018 Overview: Added automatically from request for surgery [id number] Irritable bowel syndrome with constipation 03/08/2018 Overview: Added automatically from request for surgery [id number] Excessive or frequent menstruation 09/22/2017 Cyst of right ovary 09/22/2017 Morbid obesity with body mass index of 40.0-49.9 06/22/2017 Abdominal pain, right upper quadrant 06/02/2017 Overview: Added automatically from request for surgery [id number] Tobacco use disorder 03/08/2017 Pain pelvic 03/08/2017 Obesity (BMI 30-39.9) 04/30/2016 documented as of this encounter (statuses as of 05/02/2019) Immunizations Name Administration Dates Next Due Tdap 12/02/2016 documented as of this encounter Social History Tobacco Use Types Packs/Day Years Used Date Light Tobacco Smoker Cigarettes 0.5 11 Started: 04/03/2005 Smokeless Tobacco: Never Used Tobacco Cessation: Ready to Quit: Yes; Counseling Given: Yes Comments: slowly working on quitting, advised to [...] Sign Reading Time Taken Comments Blood Pressure 117/77 05/02/2019 5:15 PM CHARGEBACK SPECIALIST Pulse 91 05/02/2019 5:15 PM CHARGEBACK SPECIALIST Temperature 36.4 C (97.6 F) 05/02/2019 4:22 PM CHARGEBACK SPECIALIST Respiratory Rate 13 05/02/2019 5:15 PM CHARGEBACK SPECIALIST Oxygen Saturation 97% 05/02/2019 5:15 PM CHARGEBACK SPECIALIST Inhaled Oxygen Concentration - - Weight 112.5 kg (248 lb) 05/02/2019 12:55 PM CHARGEBACK SPECIALIST Height 160 cm (5' 3") 05/02/2019 12:55 PM CHARGEBACK SPECIALIST Body Mass Index 43.93 05/02/2019 12:55 PM CHARGEBACK SPECIALIST documented in this encounter Discharge Instructions InstructionsMinerElba RN - 05/02/2019Instructions For Patients Undergoing Knee Arthroscopy Surgery Dr. Armando You will have dressing (bandage) over your incisions following surgery. Leave the dressing in place for 3 days following your surgery. Then you may remove the large dressing and place band-aids over the incisions. If you have a problem with your wound or dressing prior to your first post-op appointment, contact the office for instructions. Do not get the incision, bandage, or surrounding area wet. You may need to sponge bathe initially until cleared to shower by your surgeon. After your dressings are removed on the 3rd day following surgery, begin icing the knee for 20 minute periods of time, 3-4 times a day. You may use a large zip-lock bag filled with ice and wrapped in a light towel or a ready-made ice-pack if you have one at home. If surgery was done on your RIGHT knee, you may not drive immediately following surgery. You should not drive until you are off narcotic pain medications, no longer using crutches and not limping.If surgery was done on your left knee you should be fine to drive once off narcotic pain medications. You may put as much weight as comfortable on your leg following surgery. You will use crutches or a walker for a few days following surgery for support and comfort. Avoid excessive walking or activities for the first couple of days after your surgery to allow the knee to rest during the healing process. Perform only the home exercises as instructed by your surgeon and/or physical therapy following surgery If you are placed in a knee brace, you should not remove the brace for any reason until instructed to do so by your surgeon. Diet: As tolerated If you have any questions or concerns, you may contact the office at . If you have an urgent need after business hours, the [facility] Access line at [phone] can relay a message to the orthopaedic surgeon on-call. This is for urgent problems only; they cannot answer routine questions or refill medications. If you have a medical emergency, call 911 or go to the nearest emergency room. Contact Information Brandyn Armando MD ~ Daytime: [phone] After Hours: [facility] Access Line [phone] and ask to speak to the Nurse On- Call General Surgical Discharge Instructions: ? The medication that was used will be acting in your system for the next 24 hours, so you might feel a little drowsy, with impaired judgment and/ or motor function. This feeling should wear off. Because the medication is still in your system for the next 24 hours you SHOULD NOT: o Drive a car, operate machinery or power tools. o Drink any alcoholic beverages. o Make any important decisions or sign any legal documents. ? You should rest the remainder of the day and not engage in any physical activity. YOU ARE RESPONSIBLE FOR HAVING SOMEONE AT HOME WITH YOU DURING THE AFTERNOON AND NIGHT IMMEDIATELY FOLLOWING YOUR SURGERY. Patients should cough and deep breathe every 2-4 hours while awake to avoid respiratory complications. ? Because the medications used could produce some residual nausea and vomiting after you go home, you should eat lightly today, starting with clear liquids ( broth, soft drinks, apple juice, jello) and toast or crackers, progressing to your normal diet as tolerated. If you get sick, wait a couple of hours and then begin to eat. After 24 hours the nausea should be gone. If your nausea persists, callyour physician. ? You may experience some pain and your physician will advise you on what to take for discomfort. This should be taken as directed. If the pain is not relieved, contact your physician. You may also have a sore throat from the airway/ breathing tube that was in place. You may use lozenges, throat spray ( Chloraseptic), or warm salt water gargles for symptomatic relief. ? If you are unable to urinate within five hours after your procedure, call your physician. ? The type of surgery performed will determine how much bleeding (if any) to expect. Normally, somespotting might occur. If your dressing pad become saturated, notify your physician. Elevate surgical site, if applicable, to reduce swelling and pain. ? Preventing a surgical site infection: o Dont smoke. It is best to quit at least 30 days before surgery, but quitting after surgery is also helpful. o If you are a diabetic, keep your blood sugar well controlled. WASH YOUR HANDS. o Keep your wound clean and remember to wash your hands before and after contact with the area. o Call your doctor if you have signs of infection: ? increased tenderness at the surgical site ? red streaks or increased redness of the area ? bad-smelling discharge from the incision ? fever of 101 or higher TOBACCO AVOIDANCE Exposure to tobacco either from smoking or from second hand (environmental) smoke or smokeless tobacco (snuff) is damaging to your health. This information is to encourage everyone to avoid tobacco exposure. It is recommended that you: If you smoke or use smokeless tobacco, we encourage you to quit. If you have already quit smoking, continue your good work! If you do not smoke or use smokeless tobacco, do not start. Avoid secondhand smoke. Additional Resources: You may want to contact these organizations for further information on smoking and how to quit- [place] [employer] - http://www.lungusa.org/stop-smoking/ [place] [employer] - http://www.cancer.org/Healthy/StayAwayfromTobacco/ index [place] [employer] - http://www.heart.org/HEARTORG/GettingHealthy/ QuitSmoking/Quit-Smoking_[facility]_001085_SubHomePage.jsp documented in this encounter Plan of Treatment Date Type Specialty Care Team Description 05/14/2019 Office Visit Orthopedic Surgery Brandyn Armando MD [id number] [place], [place] [id number] Health Maintenance Due Date Last Done Comments PNEUMOCOCCAL 0-64 YEARS COMBINED SERIES (1 of - 1993 PPSV23) INFLUENZA VACCINE (#1) 2018 PAP SMEAR 03/08/2020 03/08/2017 DTaP,Tdap,and Td Vaccines (2 - Td) 12/02/2026 12/02/2016 documented as of this encounter Goals Goal Patient Goal Associated Recent Patient-Stated? 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, 5:13 PM CHARGEBACK SPECIALIST) [place] Ji Note: Be able to function better without pain documented as of this encounter Procedures Procedure Name Priority Date/Time Associated Diagnosis Comments CONSENT/REFUSAL FOR Routine 05/02/2019 11:51 AM DIAGNOSIS AND TREATMENT CHARGEBACK SPECIALIST ASSIGNMENT OF BENEFITS Routine 05/02/2019 11:51 AM CHARGEBACK SPECIALIST documented in this encounter Results Not on filedocumented in this encounter Visit Diagnoses Diagnosis Synovitis of left knee - Primary Left knee pain, unspecified chronicity documented in this encounter Administered Medications Medication Order MAR Action Action Date Dose Rate Site bzyoqmcwatm-okvubvmypce-lg Given 05/02/2019 3:38 PM CHARGEBACK SPECIALIST 30 mL Left Knee (SENSORCAINE W/EPINEPHRINE) 0.25 %-1:200,000 injection PRN, Starting Arielle 05/02/19 at 1538, Until Discontinued, Routine, Intra-op FENTanyl PF (SUBLIMAZE (PF)) injection 25 Given 05/02/2019 5:00 PM CHARGEBACK SPECIALIST 25 mcg mcg 25 mcg, Slow IV Push, Q5MIN PRN, 4 doses, Starting Arielle 05/02/19 at 1641, Until Discontinued, Routine, Pain (scale 4-6), PACU Given 05/02/2019 4:52 PM CHARGEBACK SPECIALIST 25 mcg HYDROmorphone (DILAUDID) injection 0.2 mg 0.2 mg, Slow IV Push, Q5MIN PRN, 10 doses, Starting Arielle 05/02/19 at 1642, Until Discontinued, Routine, Pain (scale 7-10), PACU, Use approved by (Faculty): PACU USE -ANESTHESIA SERVICE-HYDROMORPHONE INJECTIONS ondansetron (ZOFRAN (PF)) injection 4 mg 4 mg, Slow IV Push, PRN, 1 dose, Starting Arielle 05/02/19 at 1641, Until Discontinued, Routine, Nausea and Vomiting (N/V), PACU Medication Order MAR Action Action Date Dose Rate Site HYDROcodone-acetaminophen Given 05/02/2019 5:01 PM CHARGEBACK SPECIALIST 1 tablet (NORCO 5) 5-325 mg tablet 1 tablet 1 tablet, Oral, ONCE, 1 dose, Arielle 05/02/19 at 1800, Routine, PACU lactated ringers IV infusion New Bag 05/02/2019 12:53 PM CHARGEBACK SPECIALIST 1,000 mL 20 mL /hr 1,000 mL at 20 mL/hr, 1,000 mL, IV Infusion, ONCE, 1 dose, Arielle 05/02/19 at 1215, Routine, DSU Pre-op documented in this encounter Insurance Payer Benefit Plan / Subscriber ID Effective Dates Phone Address Type Group [facility] xxxxxxxxx 2017-[employer] Medicaid COMM PLAN - PLUS t MANAGED MEDICAID ([place]) [place] [address] documented as of this encounter
[2019-05-22] MEDS ORDERED: FENTANYL CITR 100 MCG/2 ML ONE (19:00)
[2019-05-22 19:24] LABS: Basophils % 0.7 % (0-1.3); Hematocrit 40.8 % (36.0-45.0); Lymphocytes % 27.3 % (15.3-44.8); MPV 9.2 fL (7.6-11.3); RBC Red Blood Cell Count 4.66 M/uL (3.86-4.86)
[2019-05-22 19:28] LABS: Potassium 4.1 mmol/L (3.5-5.1)
[2019-05-22 19:29] LABS: Protime INR 0.9
--- NOTE | 2019-05-22 19:43 | RAD REPORT ---
EXAM DESCRIPTION: USExtremity Venous Uni Ltd05/22/2019 7:23 pm CLINICAL HISTORY: left leg pain and swelling. COMPARISON: None. FINDINGS: Left common femoral, superficial femoral, popliteal and posterior tibial veins are compre ssible and demonstrate augmentation. Doppler demonstrates good flow. IMPRESSION: No evidence of deep venous thrombosis involving the left lower extremity.
--- NOTE | 2019-05-22 19:57 | ER ---
Nurse's Notes [facility] Name: Vanessa Ramachandran Age: 34 yrs Sex: Female : 1985 Arrival Date: 05/22/2019 Time: 18:03 Bed 26 Private MD: Diagnosis: Pain in left lower leg Presentation: 05/22 18:24 Presenting complaint: Patient states: L knee surgery 3 weeks ago. 2 nights ago, L knee ca1 swelling, worst yesterday. C/O of R leg pain and tightness. Transition of care: patient was not received from another setting of care. Onset of symptoms was May 22, 2019. Risk Assessment: Do you want to hurt yourself or someone else? Patient reports no desire to harm self or others. Initial Sepsis Screen: Does the patient meet any 2 criteria? No. Patient's initial sepsis screen is negative. Does the patient have a suspected source of infection? No. Patient's initial sepsis screen is negative. Care prior to arrival: None. 18:24 Method Of Arrival: Wheelchair ca1 18:24 Acuity: ZOE 3 ca1 Triage Assessment: 18:27 General: Appears in no apparent distress. comfortable, Behavior is calm, cooperative, ca1 appropriate for age. Pain: Complains of pain in left leg Pain currently is 10 out of 10 on a pain scale. EENT: No signs and/or symptoms were reported regarding the EENT system. Neuro: Level of Consciousness is awake, alert, obeys commands, Oriented to person, place, time, situation, Appropriate for age. Cardiovascular: Heart tones S1 S2 present Capillary refill < 3 seconds Patient's skin is warm and dry. Respiratory: Airway is patent Respiratory effort is even, unlabored, Respiratory pattern is regular, symmetrical, Breath sounds are clear bilaterally. GI: Abdomen is round non-distended, Bowel sounds present X 4 quads. Abd is soft and non tender X 4 quads. : No signs and/or symptoms were reported regarding the genitourinary system. Derm: Skin is intact, is healthy with good turgor, Skin is pink, warm \T\ dry. Musculoskeletal: Circulation, motion, and sensation intact. Capillary refill < 3 seconds, Swelling present in left leg. SUPERVISOR FLESHING: 18:27 LMP 05/17/2019 ca1 Historical: - Allergies: 18:27 Codeine; ca1 18:27 Ibuprofen; ca1 18:27 Reglan; ca1 18:27 tramadol; ca1 - Home Meds: 18:27 Depakote Oral [Active]; Hydrocodone-Acetaminophen Oral [Active]; ca1 - PMHx: 18:27 ADD/ADHD; Asthma; Bipolar disorder; Endometrosis; Severe Anxiety Disorder; ca1 - PSHx: 18:27 Cholecystectomy; Knee surgery; ca1 - Immunization history:: Adult Immunizations up to date, Flu vaccine is not up to date. - Coronavirus screen:: The patient has NOT traveled to [place] in the past 14 days. The patient has NOT had contact with known/suspected case of Coronavirus?. - Social history:: Smoking status: Patient reports the use of cigarette tobacco products, smokes one pack cigarettes per day. - Ebola Screening: : Patient negative for fever greater than or equal to 101.5 degrees Fahrenheit, and additional compatible Ebola Virus Disease symptoms Patient denies exposure to infectious person Patient denies travel to an Ebola-affected area in the 21 days before illness onset No symptoms or risks identified at this time. Screenin:32 Abuse screen: Denies threats or abuse. Denies injuries from another. Nutritional ca1 screening: No deficits noted. Tuberculosis screening: No symptoms or risk factors identified. Fall Risk Gait- Impaired (20 pts.). Assessment: 18:32 Reassessment: SEE TRIAGE ASSESSMENT. ca1 Vital Signs: 18:27 BP 111 / 65; Pulse 78; Resp 16 S; Temp 98.2(O); Pulse Ox 100% on R/A; Weight 113.4 kg ca1 (R); Height 5 ft. 3 in. (160.02 cm) (R); Pain 10/10; 19:30 BP 100 / 80; Pulse 78; Resp 18; Pulse Ox 100% ; mg2 20:33 BP 101 / 67; Pulse 71; Resp 18; Temp 98; Pulse Ox 100% ; mg2 18:27 Body Mass Index 44.29 (113.40 kg, 160.02 cm) ca1 ED Course: 18:03 Patient arrived in ED. mr 18:13 Godfrey Rees PA is PHCP. jr8 18:13 Joe Almaraz MD is Attending Physician. jr8 18:16 Jens Romero RN is Primary Nurse. mg2 18:17 Primary Nurse role handed off by Jens Romero RN ca1 18:17 Acob, Angela, RN is Primary Nurse. ca1 18:25 Triage completed. ca1 18:27 Arm band placed on right wrist. ca1 18:32 Patient has correct armband on for positive identification. Bed in low position. Call ca1 light in reach. Side rails up X 1. Pulse ox on. NIBP on. 19:15 Inserted saline lock: 20 gauge in right antecubital area, using aseptic technique. mg2 Blood collected. 19:25 US Extremity Venous Unilateral Ltd In Process Unspecified. EDMS 20:34 No provider procedures requiring assistance completed. IV discontinued, intact, mg2 bleeding controlled, No redness/swelling at site. Pressure dressing applied. Administered Medications: 19:16 Drug: fentaNYL (PF) 75 mcg Route: IVP; Site: right antecubital; mg2 20:15 Follow up: Response: No adverse reaction; RASS: Alert and Calm (0) mg2 20:17 Drug: Valium 5 mg Route: IVP; Site: right antecubital; mg2 20:24 Follow up: Response: No adverse reaction; Medication administered at discharge. mg2 Outcome: 19:57 Discharge ordered by . maggie 20:35 Discharged to home via wheelchair, with family. mg2 20:35 Condition: improved 20:35 Discharge instructions given to patient, family, Instructed on discharge instructions, follow up and referral plans. medication usage, Demonstrated understanding of instructions, follow-up care, medications, Prescriptions given X 1. 20:35 Patient left the ED. mg2 Signatures: Dispatcher [employer] EDNM Maria Alejandra DayGodfrey PA PA jr8 Jens Romero RN RN mg2 Angela Brooks RN RN ca1 Corrections: (The following items were deleted from the chart) 18:35 18:27 Musculoskeletal: Circulation, motion, and sensation intact. Capillary refill < 3 ca1 seconds, ca1
--- NOTE | 2019-05-22 19:57 | EDPHYS ---
Physician Documentation [facility] Name: Vanessa Ramachandran Age: 34 yrs Sex: Female : 1985 Arrival Date: 05/22/2019 Time: 18:03 Bed 26 Private MD: ED Physician Joe Almaraz HPI: 05/22 19:13 This 34 yrs old Female presents to ER via Wheelchair with complaints of Leg jr8 Swelling, Leg Pain. 19:13 The patient presents with pain, swelling. The complaints affect the left leg. Onset: jr8 The symptoms/episode began/occurred gradually, 2 day(s) ago. Modifying factors: The symptoms are alleviated by nothing. the symptoms are aggravated by movement, weight bearing. Associated signs and symptoms: The patient has no apparent associated signs or symptoms. The patient has not experienced similar symptoms in the past. The patient has not recently seen a physician. Patient stated that she had arthroscopic left knee surgery about 3 weeks ago. Stated that she had been doing ok until 2 days ago. Started to have lower extremity swelling with increase in pain. Denies injury to knee . 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 - Coronavirus screen:: The patient has NOT traveled to [place] in the past 14 days. The patient has NOT had contact with known/suspected case of Coronavirus?. - Social history:: Smoking status: Patient reports the use of cigarette tobacco products, smokes one pack cigarettes per day. - Ebola Screening: : Patient negative for fever greater than or equal to 101.5 degrees Fahrenheit, and additional compatible Ebola Virus Disease symptoms Patient denies exposure to infectious person Patient denies travel to an Ebola-affected area in the 21 days before illness onset No symptoms or risks identified at this time. ROS: 19:13 Eyes: Negative for injury, pain, redness, and discharge, ENT: Negative for injury, jr8 pain, and discharge, Neck: Negative for injury, pain, and swelling, Cardiovascular: Negative for chest pain, palpitations, and edema, Respiratory: Negative for shortness of breath, cough, wheezing, and pleuritic chest pain, Abdomen/GI: Negative for abdominal pain, nausea, vomiting, diarrhea, and constipation, Back: Negative for injury and pain, Skin: Negative for injury, rash, and discoloration, Neuro: Negative for headache, weakness, numbness, tingling, and seizure. 19:13 MS/extremity: Positive for pain, swelling, tenderness, of the left leg. Exam: 19:13 Eyes: Pupils equal round and reactive to light, extra-ocular motions intact. Lids and jr8 lashes normal. Conjunctiva and sclera are non-icteric and not injected. Cornea within normal limits. Periorbital areas with no swelling, redness, or edema. ENT: Nares patent. No nasal discharge, no septal abnormalities noted. Tympanic membranes are normal and external auditory canals are clear. Oropharynx with no redness, swelling, or masses, exudates, or evidence of obstruction, uvula midline. Mucous membranes moist. Neck: Trachea midline, no thyromegaly or masses palpated, and no cervical lymphadenopathy. Supple, full range of motion without nuchal rigidity, or vertebral point tenderness. No Meningismus. Cardiovascular: Regular rate and rhythm with a normal S1 and S2. No gallops, murmurs, or rubs. Normal PMI, no JVD. No pulse deficits. Respiratory: Lungs have equal breath sounds bilaterally, clear to auscultation and percussion. No rales, rhonchi or wheezes noted. No increased work of breathing, no retractions or nasal flaring. Abdomen/GI: Soft, non-tender, with normal bowel sounds. No distension or tympany. No guarding or rebound. No evidence of tenderness throughout. Back: No spinal tenderness. No costovertebral tenderness. Full range of motion. Skin: Warm, dry with normal turgor. Normal color with no rashes, no lesions, and no evidence of cellulitis. Neuro: Awake and alert, GCS 15, oriented to person, place, time, and situation. Cranial nerves II-XII grossly intact. Motor strength 5/5 in all extremities. Sensory grossly intact. Cerebellar exam normal. Normal gait. 19:13 Musculoskeletal/extremity: Extremities: grossly normal except: noted in the left leg: pain, tenderness, ROM: intact in all extremities, full active range of motion, full passive range of motion, limited active range of motion due to pain, limited passive range of motion due to pain, Circulation is intact in all extremities. Pulses: noted to be 2+ in the right radial artery, right femoral artery, right dorsalis pedis artery, left radial artery, left femoral artery and left dorsalis pedis artery, Sensation intact. DVT Exam: no appreciated bluish discoloration, no erythema, no increased warmth, pain, that is moderate, of the left leg, tenderness, that is moderate, of the left leg, Calves: have equal circumference. Vital Signs: 18:27 BP 111 / 65; Pulse 78; Resp 16 S; Temp 98.2(O); Pulse Ox 100% on R/A; Weight 113.4 kg ca1 (R); Height 5 ft. 3 in. (160.02 cm) (R); Pain 10/10; 19:30 BP 100 / 80; Pulse 78; Resp 18; Pulse Ox 100% ; mg2 20:33 BP 101 / 67; Pulse 71; Resp 18; Temp 98; Pulse Ox 100% ; mg2 18:27 Body Mass Index 44.29 (113.40 kg, 160.02 cm) ca1 MDM: 18:16 Patient medically screened. jr8 19:56 Data reviewed: vital signs, nurses notes, lab test result(s), radiologic studies, jr8 ultrasound. Data interpreted: Pulse oximetry: on room air is 100 %. Interpretation: normal. Counseling: I had a detailed discussion with the patient and/or guardian regarding: the historical points, exam findings, and any diagnostic results supporting the discharge/admit diagnosis, lab results, radiology results, the need for outpatient follow up, a orthopedic surgeon, to return to the emergency department if symptoms worsen or persist or if there are any questions or concerns that arise at home. 20:13 ED course: Patient seems to be having episodic spasms in leg which probably is causing jr8 majority of pain. Will send home on Robaxin and Neurontin which had helped her in the past . 05/22 18:45 Order name: CBC with Diff; Complete Time: 19:44 jr8 05/22 18:45 Order name: Basic Metabolic Panel; Complete Time: 19:32 05/22 18:45 Order name: US Extremity Venous Unilateral Ltd; Complete Time: 20:19 8 05/22 18:45 Order name: Protime (+inr); Complete Time: 19:44 8 05/22 18:45 Order name: Ptt, Activated; Complete Time: 19:44 05/22 18:45 Order name: IV; Complete Time: 19:16 Administered Medications: 19:16 Drug: fentaNYL (PF) 75 mcg Route: IVP; Site: right antecubital; mg2 20:15 Follow up: Response: No adverse reaction; RASS: Alert and Calm (0) mg2 20:17 Drug: Valium 5 mg Route: IVP; Site: right antecubital; mg2 20:24 Follow up: Response: No adverse reaction; Medication administered at discharge. mg2 Disposition: 05/22/19 19:57 Discharged to Home. Impression: Pain in left lower leg. - Condition is Stable. - Discharge Instructions: Musculoskeletal Pain, Cryotherapy. - Prescriptions for gabapentin 300 mg Oral capsule - take 1 capsule by ORAL route 3 times per day; 90 capsule. Robaxin 500 mg Oral Tablet - take 2 tablet by ORAL route every 6 hours As needed; 40 tablet. - Medication Reconciliation Form, Thank You Letter, Antibiotic Education, Prescription Opioid Use, Work release form form. - Follow up: Private Physician; When: 48 Hours; Reason: Recheck today's complaints, Continuance of care, Re-evaluation by your physician. - Problem is new. - Symptoms have improved. Addendum: 05/25/2019 07:14 Co-signature as Attending Physician, Joe Almaraz MD. r n Signatures: Dispatcher [employer] EDMS Joe Almaraz MD MD rn Roszak, Josh, PA PA jr8 Jens Romero RN RN mg2 Angela Brooks RN RN ca1 Corrections: (The following items were deleted from the chart) 05/22 20:35 19:57 05/22/2019 19:57 Discharged to Home. Impression: Pain in left lower leg. mg2 Condition is Stable. Forms are Medication Reconciliation Form, Thank You Letter, Antibiotic Education, Prescription Opioid Use. Follow up: Private Physician; When: 48 Hours; Reason: Recheck today's complaints, Continuance of care, Re-evaluation by your physician. Problem is new. Symptoms have improved. jr8
[2019-05-22] MEDS ORDERED: DIAZEPAM 10 MG/2 ML INJ SYRINGE ONE (20:19)
[2019-05-22 21:29] VITALS: O2SAT 100
[2019-05-22 21:32] VITALS: BP 101/67; TEMP 98
== END 2019-05-22 20:35 | disposition home or self-care (01) ==
LOC: ER 17:57
DX: M79.662 Pain in left lower leg (principal); Z88.6 Allergy status to analgesic agent; F17.210 Nicotine dependence, cigarettes, uncomplicated
CPT/HCPCS: 85025; 80048; 36415; 85610; 85730; 93971; 96375; 96374; 99284; J3360; J3010

== ENCOUNTER 2019-06-01 11:50 | Emergency (ER) | payer BC, OTHER ==
--- OUTSIDE RECORDS SUMMARY | 2019-06-01 11:52 | XMS REPORT ---
:1985 [facility] Address [address] [place] [address] Dr. Conn [address] [place] [id number] Care Team Providers Name Role Phone Unavailable Unavailable Unavailable Problems This patient has no known problems. Allergies, Adverse Reactions, Alerts This patient has no known allergies or adverse reactions. Medications This patient has no known medications.
--- OUTSIDE RECORDS SUMMARY | 2019-06-01 11:58 | XMS REPORT | Summary of Care ---
:1985 Author Organization [facility] Address [address] [place] [address] Care Team Providers Name Role Phone Jesse Mclaughlin MD Primary Care Provider Reason for Visit Reason Comments Assessment Encounter Details Date Type Department Care Team Description 05/23/2019 Telephone [facility] Jesse Mclaughlin MD Assessment - [address] [address] [place] [phone] Allergies Active Allergy Reactions Severity Noted Date Comments Codeine Other - See comments 02/07/2017 Bad stomach pain Ibuprofen Other - See comments 12/23/2016 Severe abdominal pain Metoclopramide Hcl Anxiety 06/21/2018 Massive documented as of this encounter (statuses as of 05/23/2019) Medications Medication Sig Dispensed Refills Start Date End Date Status albuterol 2.5 mg /3 Inhale 3 mL 100 Each 12 12/23/2016 Active mL (0.083 %) every 4 (four) nebulizer hours as needed solutionIndications: for Wheezing or Mild persistent Shortness of asthma without Breath. complication sod Use 1 Bottle in 1 Each 0 04/13/2017 Active getyg-lyhoig-iojsyu each nostril 2 bottle (NEILMED SINUS (two) [...] as of this encounter (statuses as of 05/23/2019) Active Problems Problem Noted Date Left knee pain, unspecified chronicity 04/26/2019 Overview: Added automatically from request for surgery [id number] Asthma in adult without complication 12/31/2018 Abdominal pain 06/19/2018 Other constipation 03/08/2018 Overview: Added automatically from request for surgery [id number] Irritable bowel syndrome with constipation 03/08/2018 Overview: Added automatically from request for surgery [id number] Excessive or frequent menstruation 09/22/2017 Cyst of right ovary 09/22/2017 Morbid obesity with body mass index of 40.0-49.9 06/22/2017 Abdominal pain, right upper quadrant 06/02/2017 Overview: Added automatically from request for surgery [id number] Tobacco use disorder 03/08/2017 Pain pelvic 03/08/2017 Obesity (BMI 30-39.9) 04/30/2016 documented as of this encounter (statuses as of 05/23/2019) Immunizations Name Administration Dates Next Due Tdap [...] Visit Physical Therapy Gt Lewis MD [address] [place] [phone] Yumiko Zapien, PT [address] [place] [address] 07/12/2019 Office Visit Orthopedic Surgery Brandyn Armando MD [address] [facility] [id number] [place] [address] Health Maintenance Due Date Last Done Comments PNEUMOCOCCAL 0-64 YEARS COMBINED SERIES (1 of - 1993 PPSV23) INFLUENZA VACCINE (#1) 2018 PAP SMEAR 03/08/2020 03/08/2017 DTaP,Tdap,and Td Vaccines (2 - Td) 12/02/2026 12/02/2016 documented as of this encounter Goals Goal Patient Goal Associated Recent Patient-Stated? 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 xxxxxxxxx 2017-[facility] Medicaid HEALTHCARE COMM STAR PLUS ent PLAN - MANAGED MEDICAID documented as of this encounter
--- OUTSIDE RECORDS SUMMARY | 2019-06-01 11:58 | XMS REPORT | Summary of Care ---
:1985 Author Organization [facility] Address [address] [place] [address] Care Team Providers Name Role Phone Jesse Mclaughlin MD Primary Care Provider Encounter Details Date Type Department Care Team Description 05/29/2019 Orders Only [facility] Doctor Unassigned, No [address] [facility] Name [place] [id number] [place] [phone] Allergies Active Allergy Reactions Severity Noted Date Comments Codeine Other - See comments 02/07/2017 Bad stomach pain Ibuprofen Other - See comments 12/23/2016 Severe abdominal pain Metoclopramide Hcl Anxiety 06/21/2018 Massive documented as of this encounter (statuses as of 05/29/2019) Medications Medication Sig Dispensed Refills Start Date End Date Status albuterol 2.5 mg /3 Inhale 3 mL 100 Each 12 12/23/2016 Active mL (0.083 %) every 4 (four) nebulizer hours as needed solutionIndications: for Wheezing or Mild persistent Shortness of asthma without Breath. complication sod Use 1 Bottle in 1 Each 0 04/13/2017 Active lydhy-hnbocs-sqnaff each nostril 2 bottle (NEILMED SINUS (two) [...] as of this encounter (statuses as of 05/29/2019) Active Problems Problem Noted Date Left knee pain, unspecified chronicity 04/26/2019 Overview: Added automatically from request for surgery [id number] Asthma in adult without complication 12/31/2018 Abdominal pain 06/19/2018 Other constipation 03/08/2018 Overview: Added automatically from request for surgery [id number] Irritable bowel syndrome with constipation 03/08/2018 Overview: Added automatically from request for surgery [id number] Excessive or frequent menstruation 09/22/2017 Cyst of right ovary 09/22/2017 Morbid obesity with body mass index of 40.0-49.9 06/22/2017 Abdominal pain, right upper quadrant 06/02/2017 Overview: Added automatically from request for surgery [id number] Tobacco use disorder 03/08/2017 Pain pelvic 03/08/2017 Obesity (BMI 30-39.9) 04/30/2016 documented as of this encounter (statuses as of 05/29/2019) Immunizations Name Administration Dates Next Due Tdap [...] Treatment Date Type Specialty Care Team Description 07/12/2019 Office Visit Orthopedic Surgery Brandyn Armando MD [id number] [place] [address] Health Maintenance Due Date Last Done Comments PNEUMOCOCCAL 0-64 YEARS COMBINED SERIES (1 of - 1993 PPSV23) INFLUENZA VACCINE (#1) 2018 PAP SMEAR 03/08/2020 03/08/2017 DTaP,Tdap,and Td Vaccines (2 - Td) 12/02/2026 12/02/2016 documented as of this encounter Goals Goal Patient Goal Associated Recent Patient-Stated? 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) [place] Ji Note: Be able to function better without pain documented as of this encounter Procedures Procedure Name Priority Date/Time Associated Diagnosis Comments EXTERNAL PROVIDER Routine 05/29/2019 12:01 AM HOTEL ADMINISTRATIVE ASSISTANT RECORDS documented in this encounter Results Not on filedocumented in this encounter Insurance Payer Benefit Plan Subscriber ID Effective Phone Address Type / Group Dates [place] BCBS OF [id number] 2019-Teresita [phone] [address] PPO/ POS [place] [id number] [place] [address] [facility] xxxxxxxxx 2017-Pres Medicaid HEALTHCARE COMM STAR PLUS ent PLAN - MANAGED MEDICAID documented as of this encounter
[2019-06-01] MEDS ORDERED: HYDROCODONE/APAP 10/325 TAB ONE (12:37)
--- NOTE | 2019-06-01 13:33 | EDPHYS ---
Physician Documentation [facility] Name: Vanessa Ramachandran Age: 34 yrs Sex: Female : 1985 Arrival Date: 06/01/2019 Time: 12:03 Bed 13 Private MD: TAHIRA Physician Senthil Lund HPI: 13:12 This 34 yrs old Female presents to ER via Wheelchair with complaints of Knee la1 Pain. 13:12 The patient presents with pain, that is acute. The complaints affect the left knee. la1 Context: The problem was sustained at home, the patient can fully bear weight, the patient is able to ambulate. Onset: The symptoms/episode began/occurred yesterday. Modifying factors: the symptoms are aggravated by movement, weight bearing, bending knee. Associated signs and symptoms: Pertinent negatives numbness, tingling, weakness. Severity of symptoms: At their worst the symptoms were mild. The patient has not experienced similar symptoms in the past. 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 - Social history:: Smoking status: . ROS: 13:14 Constitutional: Negative for fever, chills, and weight loss, Eyes: Negative for injury, la1 pain, redness, and discharge, ENT: Negative for injury, pain, and discharge, Neck: Negative for injury, pain, and swelling, Cardiovascular: Negative for chest pain, palpitations, and edema, Respiratory: Negative for shortness of breath, cough, wheezing, and pleuritic chest pain, Abdomen/GI: Negative for abdominal pain, nausea, vomiting, diarrhea, and constipation, Back: Negative for injury and pain, Skin: Negative for injury, rash, and discoloration, Neuro: Negative for headache, weakness, numbness, tingling, and seizure. 13:14 MS/extremity: Positive for pain, of the left knee. Exam: 13:14 Constitutional: This is a well developed, well nourished patient who is awake, alert, la1 and in no acute distress. Head/Face: Normocephalic, atraumatic. Eyes: Pupils equal round and reactive to light, extra-ocular motions intact. Lids and lashes normal. Conjunctiva and sclera are non-icteric and not injected. Cornea within normal limits. Periorbital areas with no swelling, redness, or edema. Cardiovascular: , no JVD Respiratory: No increased work of breathing, MS/ Extremity: Pulses equal, no cyanosis. Neurovascular intact. Full, normal range of motion. Neuro: Awake and alert, GCS 15, oriented to person, place, time, and situation. Cranial nerves II-XII grossly intact. Motor strength 5/5 in all extremities. Sensory grossly intact. Cerebellar exam normal. Normal gait. Vital Signs: 12:19 BP 136 / 80; Pulse 87; Resp 16; Temp 98.1; Pulse Ox 98% on R/A; Weight 113.4 kg; Height iw 5 ft. 3 in. (160.02 cm); Pain 10/10; 13:35 BP 116 / 89; Pulse 81; Resp 16 S; Pulse Ox 99% on R/A; ca1 12:19 Body Mass Index 44.29 (113.40 kg, 160.02 cm) iw MDM: 12:24 Patient medically screened. danny 13:31 Data reviewed: vital signs, nurses notes, radiologic studies, I have discussed the la1 patient's presentation/case with the attending Emergency Department Physician; and as a result, I will discharge patient. Data interpreted: Pulse oximetry: on room air is 98 %. Interpretation: normal. Counseling: I had a detailed discussion with the patient and/or guardian regarding: the historical points, exam findings, and any diagnostic results supporting the discharge/admit diagnosis, radiology results, the need for outpatient follow up, a orthopedic surgeon. Special discussion: Based on the history and exam findings, there is no indication for further emergent testing or inpatient evaluation. I discussed with the patient/guardian the need to see the orthopedic surgeon for further evaluation of the symptoms. 12:21 Order name: Knee Left 3 View XRAY la1 Administered Medications: 12:35 Drug: [place] 10 mg-325 mg 1 tabs {Note: rass - 0.} Route: PO; ca1 13:34 Follow up: Response: No adverse reaction; Pain is decreased; RASS: Alert and Calm (0) ca1 Disposition: 06/01/19 13:32 Discharged to Home. Impression: Pain in left knee. - Condition is Stable. - Discharge Instructions: Joint Pain, How to Use a Knee Brace, Knee Pain. - Work release form, Medication Reconciliation Form, Thank You Letter, Antibiotic Education form. - Follow up: Private Physician; When: 2 - 3 days; Reason: Recheck today's complaints, Re-evaluation by your physician. - Problem is new. - Symptoms have improved. Addendum: 06/02/2019 17:58 Co-signature as Attending Physician, Senthil Lund MD I agree with the assessment and c duran plan of care. Signatures: Dispatcher [employer] EDSenthil Quarles MD MD cha Williams, Irene, RN RN iw Mark Molina, SEWING MACHINE MECHANIC-C SEWING MACHINE MECHANIC-Cla1 Angela Brooks RN RN ca1 Corrections: (The following items were deleted from the chart) 13:45 13:32 06/01/2019 13:32 Discharged to Home. Impression: Pain in left knee. Condition is ca1 Stable. Forms are Medication Reconciliation Form, Thank You Letter, Antibiotic Education, Prescription Opioid Use. Follow up: Private Physician; When: 2 - 3 days; Reason: Recheck today's complaints, Re-evaluation by your physician. Problem is new. Symptoms have improved. la1
--- NOTE | 2019-06-01 13:33 | ER ---
Nurse's Notes [facility] Name: Vanessa Ramachandran Age: 34 yrs Sex: Female : 1985 Arrival Date: 06/01/2019 Time: 12:03 Bed 13 Private MD: Diagnosis: Pain in left knee Presentation: 12:19 Chief complaint: Patient states: had surgery on left knee A 1 month ago, last night iw fell directly onto left knee, has pain and swelling to knee. Coronavirus screen: The patient has NOT traveled to [place] in the past 14 days. Proceed with normal triage procedures. Ebola Screen: Patient negative for fever greater than or equal to 101.5 degrees Fahrenheit, and additional compatible Ebola Virus Disease symptoms Patient denies exposure to infectious person. Patient denies travel to an Ebola-affected area in the 21 days before illness onset. No symptoms or risks identified at this time. Initial Sepsis Screen: Does the patient meet any 2 criteria? No. Patient's initial sepsis screen is negative. Does the patient have a suspected source of infection? No. Patient's initial sepsis screen is negative. Risk Assessment: Do you want to hurt yourself or someone else? Patient reports no desire to harm self or others. 12:19 Method Of Arrival: Wheelchair iw 12:19 Acuity: ZOE 4 iw 12:35 Onset of symptoms was June 01, 2019. 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 - Social history:: Smoking status: . Screenin:35 Abuse screen: Denies threats or abuse. Denies injuries from another. Nutritional ca1 screening: No deficits noted. Tuberculosis screening: No symptoms or risk factors identified. Fall Risk Fall in past 12 months (25 points). Secondary diagnosis (15 points) impaired mobility, Ambulatory Aid- Crutches/Cane/Walker (15 pts). [place] Fall Scale indicates High Risk Score (45 or more points). Fall prevention measures have been instituted. Side Rails Up X 2 Family Present and informed to notify staff if the need to leave the bedside As available patient and family educated on Fall Prevention Program and Strategies. Assessment: 12:35 General: Appears in no apparent distress. comfortable, Behavior is calm, cooperative, ca1 appropriate for age. Pain: Complains of pain in left knee Pain currently is 10 out of 10 on a pain scale. Neuro: Level of Consciousness is awake, alert, obeys commands, Oriented to person, place, time, situation, Appropriate for age. Derm: Skin is intact, is healthy with good turgor, Skin is pink, warm \T\ dry. Musculoskeletal: Circulation, motion, and sensation intact. Capillary refill < 3 seconds, Range of motion: limited in left knee. 13:33 Reassessment: Patient appears in no apparent distress at this time. Patient and/or ca1 family updated on plan of care and expected duration. Pain level reassessed. Patient is alert, oriented x 3, equal unlabored respirations, skin warm/dry/pink. Vital Signs: 12:19 BP 136 / 80; Pulse 87; Resp 16; Temp 98.1; Pulse Ox 98% on R/A; Weight 113.4 kg; Height iw 5 ft. 3 in. (160.02 cm); Pain 10/10; 13:35 BP 116 / 89; Pulse 81; Resp 16 S; Pulse Ox 99% on R/A; ca1 12:19 Body Mass Index 44.29 (113.40 kg, 160.02 cm) iw ED Course: 12:03 Patient arrived in ED. mr 12:06 Mark Molina, [facility] la1 12:06 Senthil Lund MD is Attending Physician. la1 12:20 Triage completed. iw 12:21 Arm band placed on. iw 12:26 Angela Brooks, ANGEL is Primary Nurse. ca1 12:35 Patient has correct armband on for positive identification. Bed in low position. Call ca1 light in reach. Side rails up X2. Pulse ox on. NIBP on. 12:35 No provider procedures requiring assistance completed. Patient did not have IV access ca1 during this emergency room visit. 12:41 Knee Left 3 View XRAY In Process Unspecified. EDMS Administered Medications: 12:35 Drug: [place] 10 mg-325 mg 1 tabs {Note: rass - 0.} Route: PO; ca1 13:34 Follow up: Response: No adverse reaction; Pain is decreased; RASS: Alert and Calm (0) ca1 Outcome: 13:32 Discharge ordered by MD. ryan 13:45 Discharged to home via wheelchair, with significant other. ca1 13:45 Condition: stable 13:45 Discharge instructions given to patient, Instructed on discharge instructions, follow up and referral plans. Demonstrated understanding of instructions, follow-up care. 13:45 Patient left the ED. ca1 Signatures: Dispatcher [employer] Maria Alejandra Fuentes Irene, RN RN iw Mark Molina, GLASS FURNACE OPERATOR-C GLASS FURNACE OPERATOR-Cla1 Angela Brooks RN RN ca1
--- NOTE | 2019-06-01 13:54 | RAD REPORT ---
EXAM DESCRIPTION: RAD - Knee Left 3 View - 06/01/2019 12:41 pm CLINICAL HISTORY: PAIN COMPARISON: Knee Left 3 View dated 03/06/2018; Knee Left 3 View dated 11/27/2017 FINDINGS: No fracture or dislocation. Small suprapatellar joint effusion.
[2019-06-01 13:57] VITALS: TEMP 98.1
[2019-06-01 13:58] VITALS: BP 116/89; O2SAT 99
== END 2019-06-01 13:45 | disposition home or self-care (01) ==
LOC: ER 11:50
DX: M25.562 Pain in left knee (principal); W18.30XA Fall on same level, unspecified, initial encounter; Y93.9 Activity, unspecified; Z98.890 Other specified postprocedural states; Z88.6 Allergy status to analgesic agent
CPT/HCPCS: 99283

== ENCOUNTER 2019-07-18 23:06 | Emergency (ER) | payer BC, OTHER ==
--- OUTSIDE RECORDS SUMMARY | 2019-07-18 23:08 | XMS REPORT ---
:1985 Author Organization [facility] t Address [address] [place] [address] Dr. Conn [address] [place] [address] Care Team Providers Name Role Phone Unavailable Unavailable Unavailable Problems This patient has no known problems. Allergies, Adverse Reactions, Alerts This patient has no known allergies or adverse reactions. Medications This patient has no known medications.
--- OUTSIDE RECORDS SUMMARY | 2019-07-18 23:18 | XMS REPORT | Summary of Care ---
:1985 Author Organization [facility] Address [address] [place] [address] Care Team Providers Name Role Phone Ventura Mclaughlin MD Primary Care Provider Reason for Visit Reason Comments Follow-up (Routine) Status Reason Specialty Diagnoses / Referred By Referred To Procedures Contact Contact Authorized Physical Therapy Diagnoses Synovitis of left knee Brandyn Armando Adc Physical Procedures CONSULT/REFERRAL PHYSICAL THERAPY OR PHYSICAL THERAPY EVALUATION LOW COMPLEX 20 MINS OR PHYSICAL THERAPY EVALUATION MOD COMPLEX 30 MINS OR PHYSICAL THERAPY EVALUATION HIGH COMPLEX 45 MINS OR THERAPEUTIC EXERCISES MD Therapy OR NEUROMUSC REE DUCAT,1+ AREAS, EA 15 MIN OR MANUAL THER TECH,1+REGIONS,EA 15 MIN OR THERAPEUT ACTVITY DIRECT PT CONTACT EACH 15 MIN OR SELF-CARE/HOME MGMT TRAINING EACH 15 MINUTES [address] [facility] Ta crisostomo [id number] Office Building [address] Phone: [address] [place] Fax: [phone] Encounter Details Date Type Department Care Team Description 06/04/2019 Ancillary Visit [facility] Gt Lewis MD [address] [place] [address] [place] [address] Decreased muscle strength (Primary Dx); Physical Therapy- Donaldo Harry, HUMAN PROJECTILE [address] [place] [address] Acute pain of left knee; [place] Antalgic gait; Professional Office Chronic pain of left knee [address] Wagner [address] [place] [phone] Allergies Active Allergy Reactions Severity Noted Date Comments Codeine Other - See comments 02/07/2017 Bad sto mach pain Ibuprofen Other - See comments 12/23/2016 Severe abdominal pain Metoclopramide Hcl Anxiety 06/21/2018 Massive documented as of this encounter (statuses as of 06/04/2019) Medications Medication Sig Dispensed Refills Start Date End Date Status albuterol 2.5 mg /3 Inhale 3 mL 100 Each 12 12/23/2016 Active mL (0.083 %) every 4 (four) nebulizer hours as needed solutionIndications: for Wheezing or Mild persistent Shortness of asthma without Breath. complication sod Use 1 Bottle in 1 Each 0 04/13/2017 Act usama imhuh-jidbbu-rxaxzo each nostril 2 bottle (NEILMED SINUS (two) [...] 1-20 mg-mcg per tablet PREDNISONE, BULK, 0 Ac tive MISC proMETHazine 25 mg Take 1 tablet [...] as of this encounter (statuses as of 06/04/2019) Active Problems Problem Noted Date Left knee pain, unspecified chronicity 04/26/2019 Overview: Added automatically from request for trevor mallorie [id number] Asthma in adult without complication 12/31/2018 Abdominal pain 06/19/2018 Other constipation 03/08/2018 Overview: Added automatically from request for trevor mallorie [id number] Irritable bowel syndrome with constipation 03/08/2018 Overview: Added automatically from request for trevor mallorie [id number] Excessive or frequent menstruation 09/22/2017 Cyst of right ovary 09/22/2017 Morbid obesity with body mass index of 40.0-49.9 06/22 Abdominal pain, right upper quadrant 06/02/2017 Overview: Added automatically from request for trevor mallorie [id number] Tobacco use disorder 03/08/2017 Pain pelvic 03/08/2017 Obesity (BMI 30-39.9) 04/30/2016 documented as of this encounter (statuses as of 06/04/2019) Immunizations Name Administration Dates Next Due Tdap 12/02/2016 documented as of this encounter Social History Tobacco Use Types Packs/Day Years Used Date Light Tobacco Smoker Cigarettes 0.5 11 Started : 04/03/2005 Smokeless Tobacco: Never Used Comments: slowly working on quitting, ad vised to speak w/MD regarding counseling/RX Alcohol Use Drinks/Week oz/Week Comments No Sex Assigned at Date Recorded Not on file Job Start Date Occupation Industry Not on file Not on file Not on file Travel History Travel Start Travel End No recent travel history available. documented as of this encounter Last Filed Vital Signs Not on filedocumented in this encounter Progress Notes Donaldo Harry, HUMAN PROJECTILE - 06/04/2019 3:00 PM CST Physical Therapy Treatment Date: June 04, 2019 Subjective: Patient reports 8/10 pain to left knee today. She states she fell from about 1 foot to her knee on Monday. She called her MD and was seen in ED. She reports no injury and was told to continue therapy. 1. Decreased muscle strength 2. Acute pain of left knee 3. Antalgic gait 4. Chronic pain of left knee Objective: Outpatient PT Treatment Row Name 06/04/19 1500 Therapeutic Exercise Therapeutic Exercise Activity 1 Stretches= HS Streth 3x30", Heel slides, 5"x10 Therapeutic Exercise Activity 2 SAQs x 10, SLR's= AAROM x 10, Hip Adduciton w/ ball, Hip Abductionw/ TB, L2 x 15ea Modalities Moist Heat (min) 10 with Estim Electrical Stimulation (Parameters) IFC w/ mhp Other Activity Other Activity 1 NuStep L2x4' HEP: Continue established HEP Assessment: Patient presents with increased left knee pain. No outward sign of injury. No significant swellingor erythema is noted. Patient walking with B crutches and c/o left knee buckling at times. Patientable to converse normally. Pain reduced to 6/10 after treatment. Able to walk without AD. Plan: Patient to continue with POC focusing on strengthening, decreasing pain, and increasing overall mobility. Donaldo Harry PTA [facility] Lic [id number] [facility] Rehab Services [facility] [phone] Margy Gutierrez, PT supv CTION MACHINE OPERATOR documented in this encounter Plan of Treatment Date Type Specialty Care Team Description 06/06/2019 Ancillary Visit Physical Therapy Gt Lewis MD [address] [place] [phone] Donaldo Harry PTA [address] [place] [address] 07/12/2019 Office Visit [facility]yn Armando MD [address] [facility] [address] [place], [place] [address] Health Maintenance Due Date Last Done Comments PNEUMOCOCCAL 0-64 YEARS COMBINED SERIES (1 of 1 - 1993 PPSV23) INFLUENZA VACCINE (#1) 2018 PAP SMEAR 03/08/2020 03/08/2017 DTaP,Tdap,and Td Vaccines (2 - Td) 12/02/2026 12/02/2016 documented as of this encounter Goals Goal Patient Goal Associated Recent Patient-Stated? 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, 5:13 PM INDUCTION MACHINE OPERATOR) [place] Ji Note: Be able to [...] Benefit Plan Subscriber ID Effective Phone Address Typ e / Group Dates [facility] [id number] 2019-Prese [phone] [address] PPO/POS [place] nt [phone] [place] [address] [facility] xxxxxxxxx 2017-Pres Medic aid HEALTHCARE COMM STAR PLUS ent PLAN - MANAGED MEDICAID documented as of this encounter
--- OUTSIDE RECORDS SUMMARY | 2019-07-18 23:19 | XMS REPORT | Summary of Care ---
:1985 Author Organization [facility] Address [address] [place] [address] Care Team Providers Name Role Phone Ventura Mclaughlin MD Primary Care Provider Reason for Visit Reason Comments Follow-up (Routine) Status Reason Specialty Diagnoses / Referred By Referred To Procedures Contact Contact Authorized Physical Therapy Diagnoses Synovitis of left knee Brandyn Armando Adc Physical Procedures CONSULT/REFERRAL PHYSICAL THERAPY MD PHYSICAL THERAPY EVALUATION LOW COMPLEX 20 MINS MD PHYSICAL THERAPY EVALUATION MOD COMPLEX 30 MINS MD PHYSICAL THERAPY EVALUATION HIGH COMPLEX 45 MINS MD THERAPEUTIC EXERCISES MD Therapy MD NEUROMUSC REE DUCAT,1+ AREAS, EA 15 MIN MD MANUAL THER TECH,1+REGIONS,EA 15 MIN MD THERAPEUT ACTVITY DIRECT PT CONTACT EACH 15 MIN MD SELF-CARE/HOME MGMT TRAINING EACH 15 MINUTES [address] [facility] Ta crisostomo [id number] Office Building [address] Phone: [address] [place], [place] Fax: [phone] Encounter Details Date Type Department Care Team Description 06/06/2019 Ancillary Visit [facility] Gt Lewis MD [address] [place] [address] [place] [address] Decreased muscle strength (Primary Dx); Physical Therapy- Donaldo Harry, ORDER ENTRY REPRESENTATIVE [address] [place] [address] Acute pain of left knee; [place] Antalgic gait; Professional Office Chronic pain of left knee [address] Wagner [address] [place] [phone] Allergies Active Allergy Reactions Severity Noted Date Comments Codeine Other - See comments 02/07/2017 Bad sto mach pain Ibuprofen Other - See comments 12/23/2016 Severe abdominal pain Metoclopramide Hcl Anxiety 06/21/2018 Massive documented as of this encounter (statuses as of 06/06/2019) Medications Medication Sig Dispensed Refills Start Date End Date Status albuterol 2.5 mg /3 Inhale 3 mL 100 Each 12 12/23/2016 Active mL (0.083 %) every 4 (four) nebulizer hours as needed solutionIndications: for Wheezing or Mild persistent Shortness of asthma without Breath. complication sod Use 1 Bottle in 1 Each 0 04/13/2017 Act usama abqcz-kkjwbf-ihyodn each nostril 2 bottle (NEILMED SINUS (two) [...] as of this encounter (statuses as of 06/06/2019) Active Problems Problem Noted Date Left knee pain, unspecified chronicity 04/26/2019 Overview: Added automatically from request for trevor mallorie [id number] Asthma in adult without complication 12/31/2018 Abdominal pain 06/19/2018 Other constipation 03/08/2018 Overview: Added automatically from request for trevor mallorie [id number] Irritable bowel syndrome with constipation 03/08/2018 Overview: Added automatically from request for trevor mallorie [id number] Excessive or frequent menstruation 09/22/2017 Cyst of right ovary 09/22/2017 Morbid obesity with body mass index of 40.0-49.9 06/22 Abdominal pain, right upper quadrant 06/02/2017 Overview: Added automatically from request for trevor mallorie [id number] Tobacco use disorder 03/08/2017 Pain pelvic 03/08/2017 Obesity (BMI 30-39.9) 04/30/2016 documented as of this encounter (statuses as of 06/06/2019) Immunizations Name Administration Dates Next Due Tdap [...] in this encounter Progress Notes Donaldo Harry, ORDER ENTRY REPRESENTATIVE - 06/06/2019 3:00 PM CST Physical Therapy Treatment Date: June 06, 2019 Subjective: Patient reports 4/10 pain to left knee today. Did not work. 1. Decreased muscle strength 2. Acute pain of left knee 3. Antalgic gait 4. Chronic pain of left knee Objective: Outpatient PT Treatment Row Name 06/06/19 1500 General Visit Number 4 Chart Reviewed Yes Family/Caregiver Present Yes Pain Assessment Pain Assessment 0-10 Pain Score 10 - Worst possible pain Post-Treatment Pain Score 4 Pain Location Knee Pain Orientation Left Pain Descriptors Aching;Sharp Therapeutic Exercise Enter Number of Therapeutic Exercise Activities: 3 Therapeutic Exercise Activity 1 Stretches= HS Streth 3x30", Heel slides, 5"x10 Therapeutic Exercise Activity 2 SAQs x 20, SLR's= AROM x 15, Hip Adduciton w/ ball, Hip Abduction w/ TB, L3 x 20ea Therapeutic Exercise Acitivity 3 LAQ x 20, HS Curl L3x20 Modalities Moist Heat (min) 10 with Estim Electrical Stimulation (Parameters) IFC w/ mhp Other Activity Other Activity 1 NuStep L2x4' HEP: Continue established HEP. Assessment: Good exercise tolerance today. Able to increase exercise as noted. Minimal reports of pain during exercise. Able to SLR independently. Plan: Patient to continue with POC focusing on strengthening, decreasing pain, and increasing overall mobility. Donaldo Harry PTA [facility] Lic [id number] [facility] Rehab Services [facility] [phone] Margy Gutierrez, [place] supv RITY MOTHER documented in this encounter Plan of Treatment Date Type Specialty Care Team Description 06/11/2019 Ancillary Visit Physical Therapy Yumiko Zapien , PT [address] [place] [address] 06/13/2019 Ancillary Visit Physical Therapy Yumiko Zapien , PT [address] [place] [address] 07/12/2019 Office Visit Orthopedic Surgery Brandyn Armando MD [address] [place], [place] [address] Health Maintenance Due Date [...] track No Matt (04/16/2019 Dandy, 5:13 PM SORORITY MOTHER) [place] Ji Note: Be able to function [...] Phone Address Typ e / Group Dates [facility] BCBS OF [id number] 2019-Prese [phone] [address] PPO/POS [facility] [phone] [place] [address] [facility] xxxxxxxxx 2017-Pres Medic aid HEALTHCARE COMM STAR PLUS ent PLAN - MANAGED MEDICAID documented as of this encounter
--- OUTSIDE RECORDS SUMMARY | 2019-07-18 23:20 | XMS REPORT | Summary of Care ---
:1985 Author Organization [facility] Address [address] [place] [address] Care Team Providers Name Role Phone Ventura Mclaughlin MD Primary Care Provider Reason for Visit Reason Comments Follow-up (Routine) Status Reason Specialty Diagnoses / Referred By Referred To Procedures Contact Contact Authorized Physical Therapy Diagnoses Synovitis of left knee Brandyn Armando Adc Physical Procedures CONSULT/REFERRAL PHYSICAL THERAPY [place] PHYSICAL THERAPY EVALUATION LOW COMPLEX 20 MINS NH PHYSICAL THERAPY EVALUATION MOD COMPLEX 30 MINS NH PHYSICAL THERAPY EVALUATION HIGH COMPLEX 45 MINS NH THERAPEUTIC EXERCISES MD Therapy [place] NEUROMUSC REE DUCAT,1+ AREAS, EA 15 MIN NH MANUAL THER TECH,1+REGIONS,EA 15 MIN [place] THERAPEUT ACTVITY DIRECT PT CONTACT EACH 15 MIN NH SELF-CARE/HOME MGMT TRAINING EACH 15 MINUTES [address] [facility] Ta crisostomo [id number] Office Building [address] Phone: [address] [place] Fax: [phone] Encounter Details Date Type Department Care Team Description 06/14/2019 Ancillary Visit [facility] Gt Lewis MD [address] [place] [address] [place] [address] Decreased muscle strength (Primary Dx); Physical Therapy- Jeannine Watt, PT [address] [place] [address] Acute pain of left knee; [place] Antalgic gait; Professional Office Chronic pain of left knee [address] [place] [phone] Allergies Active Allergy Reactions Severity Noted Date Comments Codeine Other - See comments 02/07/2017 Bad sto mach pain Ibuprofen Other - See comments 12/23/2016 Severe abdominal pain Metoclopramide Hcl Anxiety 06/21/2018 Massive documented as of this encounter (statuses as of 06/14/2019) Medications Medication Sig Dispensed Refills Start Date End Date Status albuterol 2.5 mg /3 Inhale 3 mL 100 Each 12 12/23/2016 Active mL (0.083 %) every 4 (four) nebulizer hours as needed solutionIndications: for Wheezing or Mild persistent Shortness of asthma without Breath. complication sod Use 1 Bottle in 1 Each 0 04/13/2017 Act usama ncile-ajtbpb-ghypvt each nostril 2 bottle (NEILMED SINUS (two) [...] as of this encounter (statuses as of 06/14/2019) Active Problems Problem Noted Date Left knee pain, unspecified chronicity 04/26/2019 Overview: Added automatically from request for trevor mallorie [id number] Asthma in adult without complication 12/31/2018 Abdominal pain 06/19/2018 Other constipation 03/08/2018 Overview: Added automatically from request for trevor mallorie [id number] Irritable bowel syndrome with constipation 03/08/2018 Overview: Added automatically from request for trevor mallorie [id number] Excessive or frequent menstruation 09/22/2017 Cyst of right ovary 09/22/2017 Morbid obesity with body mass index of 40.0-49.9 06/22 Abdominal pain, right upper quadrant 06/02/2017 Overview: Added automatically from request for trevor mallorie [id number] Tobacco use disorder 03/08/2017 Pain pelvic 03/08/2017 Obesity (BMI 30-39.9) 04/30/2016 documented as of this encounter (statuses as of 06/14/2019) Immunizations Name Administration Dates Next Due Tdap [...] on filedocumented in this encounter Progress Notes Jeannine Watt, PT - 06/14/2019 1:40 PM CDT Physical Therapy Treatment Date: June 14, 2019 Subjective: Patient states that the K-Tape really seemed to help last time; it stayed on for two days. States that she only got four hours of sleep last night and has been cleaning her apartment. 1. Decreased muscle strength 2. Acute pain of left knee 3. Antalgic gait 4. Chronic pain of left knee Objective: Outpatient PT Treatment Row Name 06/14/19 1300 General Visit Number 6 Chart Reviewed Yes Family/Caregiver Present Yes Pain Assessment Pain Assessment 0-10 Pain Score 10 - Worst possible pain Pain Location Knee Pain Orientation Left Pain Descriptors Aching;Sharp Therapeutic Exercise Therapeutic Exercise Activity 1 Stretches: HS Stretch 3x30" hold, DKTC 3' , Prone Quad Stretch 3x30" Therapeutic Exercise Activity 2 SLR 2x10; SAQ 20x3" hold Manual Therapy Enter Number of Manual Therapy Activities: 1 Manual Therapy Activity 1 K-Tape L knee: I technique Assessment: Patient arrived 12 minutes late to therapy today. Patient continues to have difficulty with supine SLR; poor quad contraction. Patient able to complete SAQ without difficulty. K-Tape applied to left knee to help support knee. Patient achieved greater than 120 degrees knee flexion during prone quad stretch. Patient reports 10/10 pain however, does not have facial grimacing, crying, screaming, or any other signs of pain except patient reporting pain in left knee. Plan: Patient will now be seen 3x/week due to MD request. Continue progressing patient per patient tolerance. Try to advance to more weight bearing exercises. Jeannine Watt PT, DPT [place] License Number: [id number] [email or web address] signed by Jeannine Watt PT at 06/14/2019 2:38 PM CDTdocumented in this encounter Plan of Treatment Date Type Specialty Care Team Description 06/17/2019 Ancillary Visit Physical Therapy Gt Lewis MD [address] [place] [phone] Donaldo Harry, [address] [address] 06/19/2019 Ancillary Visit Physical Therapy Donaldo Harry , [address] [address] 06/20/2019 Ancillary Visit Physical Therapy Gt Lewis MD [address] [place] [phone] Yumiko Zapien, PT [address] [place] [address] 07/12/2019 Office Visit Orthopedic Surgery Brandyn Armando MD [address] [place], [place] [address] [phone] Health Maintenance Due Date Last Done Comments PNEUMOCOCCAL 0-64 YEARS COMBINED SERIES (1 of 1 - 1993 PPSV23) INFLUENZA VACCINE (#1) 2018 PAP SMEAR 03/08/2020 03/08/2017 DTaP,Tdap,and Td Vaccines (2 - Td) 12/02/2026 12/02/2016 documented as of this encounter Goals Goal Patient Goal Associated Recent Patient-Stated? 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, 5:13 PM OIL CHANGER) [place] Ji Note: Be able to function [...] Phone Address Typ e / Group Dates [facility] BCBS OF [id number] 2019-Prescesar [phone] [address] PPO/POS [place] nt [phone] [place] [address] [facility] xxxxxxxxx 2017-Pres Medic aid HEALTHCARE COMM STAR PLUS ent PLAN - MANAGED MEDICAID documented as of this encounter
--- OUTSIDE RECORDS SUMMARY | 2019-07-18 23:20 | XMS REPORT | Summary of Care ---
:1985 Author Organization [facility] Address [address] [place] [address] Care Team Providers Name Role Phone Ventura Mclaughlin MD Primary Care Provider Reason for Visit Reason Comments Follow-up (Routine) Status Reason Specialty Diagnoses / Referred By Referred To Procedures Contact Contact Authorized Physical Therapy Diagnoses Synovitis of left knee Brandyn Armando Adc Physical Procedures CONSULT/REFERRAL PHYSICAL THERAPY [place] PHYSICAL THERAPY EVALUATION LOW COMPLEX 20 MINS [place] PHYSICAL THERAPY EVALUATION MOD COMPLEX 30 MINS [place] PHYSICAL THERAPY EVALUATION HIGH COMPLEX 45 MINS [place] THERAPEUTIC EXERCISES MD Therapy [place] NEUROMUSC REE DUCAT,1+ AREAS, EA 15 MIN [place] MANUAL THER TECH,1+REGIONS,EA 15 MIN [place] THERAPEUT ACTVITY DIRECT PT CONTACT EACH 15 MIN [place] SELF-CARE/HOME MGMT TRAINING EACH 15 MINUTES [address] [facility] Ta crisostomo [id number] Office Building [address] Phone: [address] [place], [place] Fax: [phone] Encounter Details Date Type Department Care Team Description 06/11/2019 Ancillary Visit [facility] Gt Lewis MD [address] [place] [address] [place] [address] Decreased muscle strength (Primary Dx); Physical Therapy- Yumiko Zapien, PT [address] [place] [address] Acute pain of left knee; [place] Antalgic gait; Professional Office Chronic pain of left knee [address] [place] [phone] Allergies Active Allergy Reactions Severity Noted Date Comments Codeine Other - See comments 02/07/2017 Bad sto mach pain Ibuprofen Other - See comments 12/23/2016 Severe abdominal pain Metoclopramide Hcl Anxiety 06/21/2018 Massive documented as of this encounter (statuses as of 06/12/2019) Medications Medication Sig Dispensed Refills Start Date End Date Status albuterol 2.5 mg /3 Inhale 3 mL 100 Each 12 12/23/2016 Active mL (0.083 %) every 4 (four) nebulizer hours as needed solutionIndications: for Wheezing or Mild persistent Shortness of asthma without Breath. complication sod Use 1 Bottle in 1 Each 0 04/13/2017 Act usama [id number]-[id number]-[id number] each nostril 2 bottle (NEILMED SINUS (two) [...] as of this encounter (statuses as of 06/12/2019) Active Problems Problem Noted Date Left knee pain, unspecified chronicity 04/26/2019 Overview: Added automatically from request for trevor nobles [id number] Asthma in adult without complication 12/31/2018 Abdominal pain 06/19/2018 Other constipation 03/08/2018 Overview: Added automatically from request for trevor mallorie [id number] Irritable bowel syndrome with constipation 03/08/2018 Overview: Added automatically from request for trevor mallorie [id number] Excessive or frequent menstruation 09/22/2017 Cyst of right ovary 09/22/2017 Morbid obesity with body mass index of 40.0-49.9 06/22 Abdominal pain, right upper quadrant 06/02/2017 Overview: Added automatically from request for trevor lagunasy [id number] Tobacco use disorder 03/08/2017 Pain pelvic 03/08/2017 Obesity (BMI 30-39.9) 04/30/2016 documented as of this encounter (statuses as of 06/12/2019) Immunizations Name Administration Dates Next Due Tdap [...] encounter Progress Notes Yumiko Zapien, PT - 06/11/2019 4:20 PM CDT Physical Therapy Treatment Date: June 11, 2019 Subjective: Patient stated that she feels aching pain on her L knee. 1. Decreased muscle strength 2. Acute pain of left knee 3. Antalgic gait 4. Chronic pain of left knee Objective: Outpatient PT Treatment Row Name 06/11/19 1600 General Visit Number 5 Chart Reviewed Yes Family/Caregiver Present Yes Pain Assessment Pain Assessment 0-10 Pain Location Knee Pain Orientation Left Pain Descriptors Aching;Sharp Therapeutic Exercise Therapeutic Exercise Activity 1 Stretches= HS Streth 3x30", Heel slides, 5"x10 Therapeutic Exercise Activity 2 SAQs x 20, SLR's= AROM x 15, Hip Adduciton w/ ball, Hip Abduction w/ TB, L3 x 20ea Therapeutic Exercise Acitivity 3 LAQ x 20, HS Curl L3x20 Manual Therapy Enter Number of Manual Therapy Activities: 1 Manual Therapy Activity 1 K-tape L knee: I technique Therapeutic Activity Enter Number of Therapeutic Activities: 1 Therapeutic Activity 1 L knee ROM: 0-128 Modalities Moist Heat (min) 10 with Estim Electrical Stimulation (Parameters) Other Activity Other Activity 1 NuStep L2x4' Assessment: Patient still demonstrates slow during therapeutic exercises due to pain. Patient stated that she feels support after application of K-tape on L knee. Pain level 4/10 on L knee after PT. Plan: Patient to continue with POC focusing on strengthening, decreasing pain, and increasing overall mobility. Yumiko Zapien,PT [place] License: [id number] documented in this encounter Plan of Treatment Date Type Specialty Care Team Description 06/14/2019 Ancillary Visit Physical Therapy Gt Lewis MD [address] [place] [address] Margy Carlton, PT [address] [place] [address] 06/17/2019 Ancillary Visit Physical Therapy Gt Lewis MD [address] [place] [address] Donaldo Harry, RAW CHEESE WORKER [address] [place] [address] 06/20/2019 Ancillary Visit Physical Therapy Gt Lewis MD [address] [place] [address] Yumiko Zapien, PT [address] [place] [address] 07/12/2019 Office Visit Orthopedic Surgery Brandyn Armando MD [address] [place], [place] [address] [phone] Health Maintenance Due Date Last Done Comments PNEUMOCOCCAL 0-64 YEARS COMBINED SERIES (1 of 1 - 1993 PPSV23) INFLUENZA VACCINE (#1) 2018 PAP SMEAR 03/08/2020 03/08/2017 DTaP,Tdap,and Td Vaccines (2 - Td) 12/02/2026 12/02/2016 documented as of this encounter Goals Goal Patient Goal Associated Recent Patient-Stated? 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
--- OUTSIDE RECORDS SUMMARY | 2019-07-18 23:20 | XMS REPORT | Summary of Care ---
:1985 Author Organization [facility] Address [address] [place] [address] Care Team Providers Name Role Phone Ventura Mclaughlin MD Primary Care Provider Reason for Visit Reason Comments Refill Request Encounter Details Date Type Department Care Team Description 06/12/2019 Refill [facility] Jesse Martinez MD Refill Request - [address] [address] [place] [address] [place] [address] [phone] Allergies Active Allergy Reactions Severity Noted Date [...] in 1 Each 0 04/13/2017 Act usama ewjpt-vcesvl-meosyf each nostril 2 bottle (NEILMED SINUS (two) [...] Added automatically from request for trevor mallorie [id number] Asthma in adult without complication 12/31/2018 Abdominal pain 06/19/2018 Other constipation 03/08/2018 Overview: Added automatically from request for trevor mallorie [id number] Irritable bowel syndrome with constipation 03/08/2018 Overview: Added automatically from request for trevor mallorie [id number] Excessive or frequent menstruation 09/22/2017 Cyst of right ovary 09/22/2017 Morbid obesity with body mass index of 40.0-49.9 06/22 Abdominal pain, right upper quadrant 06/02/2017 Overview: Added automatically from request for trevor mallorie [id number] Tobacco use disorder 03/08/2017 Pain pelvic 03/08/2017 [...] Physical Therapy Gt Lewis MD [address] [place] [address] Margy Carlton, PT [address] [place] [address] 06/17/2019 Ancillary Visit Physical Therapy Gt Lewis MD [address] [place] [address] Donaldo Harry, RECEIVER SETTER [address] [place] [address] 06/20/2019 Ancillary Visit Physical Therapy Gt Lewis MD [address] [place] [address] Yumiko Zapien, PT [address] [place] [address] 07/12/2019 Office Visit Orthopedic Surgery Brandyn Armando MD [address] [place], [place] [address] [phone] Health Maintenance Due Date Last Done Comments PNEUMOCOCCAL 0-64 YEARS COMBINED SERIES (1 of - 1993 PPSV23) INFLUENZA VACCINE (#1) 2018 PAP SMEAR 03/08/2020 03/08/2017 DTaP,Tdap,and Td Vaccines (2 - Td) 12/02/2026 12/02/2016 documented as of this encounter Goals Goal Patient Goal Associated Recent Patient-Stated? 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 xxxxxxxxx 2017-Pres Medic aid HEALTH[employer]ARE COMM STAR PLUS ent PLAN - MANAGED MEDICAID documented as of this encounter
--- OUTSIDE RECORDS SUMMARY | 2019-07-18 23:21 | XMS REPORT | Summary of Care ---
:1985 Author Organization [facility] Address [address] [place] [id number] Care Team Providers Name Role Phone Ventura Mclaughlin MD Primary Care Provider Reason for Visit Reason Comments Asthma neb didnt help Encounter Details Date Type Department Care Team Description 06/16/2019 Urgent Care [facility] Unknown, Attending V iral illness (Primary Dx); Urgent Care Gabino Nieves MD [address] [address] Cough; [address] [place], Dyspnea, [place] [address] [place] [address] Allergies Active Allergy Reactions Severity Noted Date Comments Codeine Other - See comments 02/07/2017 Bad sto mach pain Ibuprofen Other - See comments 12/23/2016 Severe abdominal pain Metoclopramide Hcl Anxiety 06/21/2018 Massive documented as of this encounter (statuses as of 06/16/2019) Medications Medication Sig Dispensed Refills Start End Date Status Date albuterol 2.5 mg Inhale 3 mL 100 Each 12 A ctive /3 mL (0.083 %) every 4 7 nebulizer (four) hours solutionIndication as needed for s: Mild persistent Wheezing or asthma without Shortness of complication Breath. sod Use 1 Bottle 1 Each 0 Active [id number] in each 8 z bottle (NEILMED nostril 2 SINUS RINSE (two) times COMPLETE) pkdv daily. Use in hot shower 1 hour before bedtime Omeprazole 20 mg Take by 0 Act usama tablet mouth 2 (two) times daily. SYMBICORT 160-4.5 INHALE 2 10.2 Inhaler 8 Active mcg/actuation PUFFS 2 (TWO) 8 inhalerIndications TIMES DAILY. : Mild persistent asthma without complication fluocinonide-emoll Apply to 60 g 3 A ctive ient 0.05 % area(s) 2 8 creamIndications: (two) times Seborrheic daily. dermatitis dicyclomine Take 1 tablet 60 tablet 2 Acti ve (BENTYL) 20 mg by mouth 3 8 [...] 50 Use 2 Sprays 16 g 0 Ac tive mcg/actuation in each 8 nasal nostril sprayIndications: daily. Viral URI norethindrone-ethi 0 A ctive nyl estradiol 1-20 8 mg-mcg per tablet PREDNISONE, BULK, 0 Ac [...] NORTRIPTYLINE 25 TAKE 1 90 capsule 0 Ac tive mg CAPSULE BY 9 capsuleIndications MOUTH AT [...] sumatriptan Take 1 tablet 9 tablet 12 Acti ve (IMITREX) 100 mg by mouth as 9 [...] (six) knee hours as needed (knee pain). lamoTRIgine 150 mg 0 A ctive tablet 0 HYDROcodone-acetam Take 1 tablet 20 tablet 0 Active inophen (NORCO) by mouth 0 10-325 mg every 6 (six) tabletIndications: hours as Synovitis of left needed for knee Pain (scale 4-6) or Pain (scale 7-10). traMADol 50 mg Take 1 tablet 40 tablet 0 A ctive tablet by mouth 0 every 6 (six) hours as needed for Pain (scale 4-6). albuterol (PROAIR INHALE TWO 8.5 g 1 A ctive HFA) 90 PUFFS BY 0 mcg/actuation MOUTH EVERY 6 inhalerIndications HOURS : Mild persistent NEEDED FOR asthma without WHEEZING AND complication FOR SHORTNESS OF BREATH promethazine-dextr Take 5 mL by 240 mL 1 Active omethorphan mouth every 4 0 6.25-15 mg/5 mL (four) hours syrupIndications: as needed for Cough Cough. promethazine-dextr Take 5 mL by 240 mL 1 06/16/19 Discontinued omethorphan mouth every 4 0 20 (Reo rder) 6.25-15 mg/5 mL (four) hours syrupIndications: as needed for Cough Cough for up to 14 days. documented as of this encounter (statuses as of 06/16/2019) Active Problems Problem Noted Date Left knee pain, unspecified chronicity 04/26/2019 Overview: Added automatically from request for trevor nobles [id number] Asthma in adult without complication 12/31/2018 Abdominal pain 06/19/2018 Other constipation 03/08/2018 Overview: Added automatically from request for trevor nobles [id number] Irritable bowel syndrome with constipation 03/08/2018 Overview: Added automatically from request for trevor nobles [id number] Excessive or frequent menstruation 09/22/2017 Cyst of right ovary 09/22/2017 Morbid obesity with body mass index of 40.0-49.9 06/22 Abdominal pain, right upper quadrant 06/02/2017 Overview: Added automatically from request for trevor nobles [id number] Tobacco use disorder 03/08/2017 Pain pelvic 03/08/2017 Obesity (BMI 30-39.9) 04/30/2016 documented as of this encounter (statuses as of 06/16/2019) Immunizations Name Administration Dates Next Due Tdap [...] Sign Reading Time Taken Comments Blood Pressure 118/87 06/16/2019 12:16 PM CDT Pulse 107 06/16/2019 12:16 PM CDT Temperature 37.2 C (98.9 F) 06/16/2019 12:16 PM CDT Respiratory Rate 18 06/16/2019 12:16 PM CDT Oxygen Saturation 98% 06/16/2019 12:16 PM CDT Inhaled Oxygen Concentration - - Weight 112.9 kg (249 lb) 06/16/2019 12:16 PM CDT Height 160 cm (5' 3") 06/16/2019 12:16 PM CDT Body Mass Index 44.11 06/16/2019 12:16 PM CDT documented in this encounter Patient Instructions Patient InstructionsAnthGabino proctor MD - 06/16/2019 12:00 PM CDT1. Viral illness Viral Illness -- Consistent with current outbreaks -- lots of them right now. No focus suspicious for a bacterial process. Encourage fluids. Eat as desired. Any meals missed while ill will be made up when well again. Contagion: You are exposed to the virus. It multiplies inside your cells and you become contagious, spreading to your contacts. THEN you get sick. You remain contagious until you start getting better. If you have fever, then after it is gone for 24 hours. When getting better, your immune system has cleared the virus, and the rest is your body healing. The last symptoms to resolve are cough and fatigue. Acetaminophen (Tylenol) 500mg take 2 tablets twice a day regularly and up to four times a day as needed for pain. Nortriptyline 25mg (twin of flexeril) each night to neuropathic pain. May double if need to. Narcotics increase inflammation and prolong pain involving muscles, joints, the back, headaches, et cetera. Recommend voiding narcotics where possible. 2. Cough - POCT FLU A AND B (MOLECULAR) Negative - promethazine-dextromethorphan 6.25-15 mg/5 mL syrup; Take 5 mL by mouth every 4 (four) hours as needed for Cough. Dispense: 240 mL; Refill: 1 Mucus color is a function of white cells, which means your immune system is working. The color does not indicate what the immune system is protecting against: virus, bacteria, irritant. For a short video on YouTube, search "[employer] What your mucus says about your health". Cough Guaifenesin 100mg / Dextromethorphan 10mL in 5mL (Robitussin DM): 10mL every 4 hours as needed for cough and mucous flow. Many other brands. Recommend those with only guaifenesin & dextromethorphan. For use during the day. Dark Chocolate helps with cough (xanthenes). Research proven in [place] but did not specify how many boxes to eat. Honey 2 teaspoons proven effective in children. Dosage for older kids etc not established. Use as needed. Promethazine/DextroMethorphan When awake at night or when being sleepy from the medicine is all right and safe. Do not use at the same time as Guaifenesin/Dextromethorphan. 3. Dyspnea, unspecified type The feeling of not getting an adequate breath, even though can inhale with competence and blow out acandle. Albuterol will not help -- your lungs are clear. During Hyperventilation you are breathing more than you need to. The breathing center in your brain understands "okay" and "not-okay". "Not okay" instructs you to breathe more -- even when you are already breathing too much. Find a video on Diaphragmatic Breathing on [employer] -- one you are comfortable with (they are constantly changing): I put a hand on my chest and the other hand on my upper abdomen. A normal breath is into the chest -- the chest hand moves. A Diaphragmatic Breath leaves the chest still and the abdomen moves. Some people learn it better when lying down. Learn by practicing when you do not have a problem. Then when you cannot get an adequate breath, Diaphragmatic Breathe for 3-5 minutes by the clock. (you can use paper bag breathing, but no one pulls out a paper bag in latter day.) See Dr. Mclaughlin if follow up needed. Return here as needed. documented in this encounter Progress Notes Gabino Nieves MD - 06/16/2019 12:00 PM CDT Cc: Chief Complaint Patient presents with Asthma neb didnt help Vanessa Ramachandran is a 34 year old female. HPI Yesterday sl cough This morning awoke bad cough and could not catch breath Cough productive Tx: Albuterol neb and MDI, This morning uncle positive for flu A & B Medications Outpatient Medications Prior to Visit Medication Sig Dispense Refill albuterol (PROAIR HFA) 90 mcg/actuation inhaler INHALE TWO PUFFS BY MOUTH EVERY 6 HOURS NEEDED FOR WHEEZING AND FOR SHORTNESS OF BREATH 8.5 g 1 traMADol 50 mg tablet Take 1 tablet by mouth every 6 (six) hours as needed for Pain (scale 4-6).40 tablet 0 HYDROcodone-acetaminophen (NORCO) 10-325 mg tablet Take 1 tablet by mouth every 6 (six) hours asneeded for Pain (scale 4-6) or Pain (scale 7-10). 20 tablet 0 lamoTRIgine 150 mg tablet tiZANidine 4 mg tablet Take 1 tablet by mouth every 6 (six) hours as needed (knee pain). 30 tablet 0 diclofenac 75 mg EC tablet Take 1 tablet by mouth 2 (two) times daily with meals. 60 tablet 1 loratadine 10 mg tablet Take 1 tablet [...] capsule Take 1 capsule by mouth 3 (three) times daily. 20 capsule 0 busPIRone 15 [...] by mouth 2 (two) times daily. sod iijtk-sygnmn-rltcui bottle (NEILMED SINUS RINSE COMPLETE) pkdv Use 1 Bottle in each nostril 2 (two) times daily. Use in hot shower 1 hour before bedtime 1 Each 0 albuterol 2.5 mg /3 mL (0.083 %) nebulizer solution Inhale 3 mL every 4 (four) hours as needed for Wheezing or Shortness of Breath. 100 Each 12 No facility-administered medications prior to visit. Review of Systems Constitutional: Denies fever, chills Skin: Denies: Rash Allergy/Immunology: Denies: rhinorrhea Eyes: Denies: visual loss or blurred vision ENT: Denies: Earache, nasal congestion, sore throat Respiratory: dyspnea, cough Gastrointestinal: Denies: abdominal pain, nausea, vomiting, diarrhea Genitourinary: Denies: dysuria, urgency, frequency Musculoskeletal: diffuse pain Neuro: Denies: headache, vision change, dizziness, lightheaded Past Medical History: at age 5: ADHD (attention deficit hyperactivity disorder) age 14: Anxiety 12/31/2018: Asthma in adult without complication 2001: Bipolar 1 disorder No date: Breast disorder Comment: breast discharge since age 17 No date: Cyst of right ovary No date: Depression 2010: Endometriosis No date: Esophageal reflux Past Surgical History: 08/2016: CHOLECYSTECTOMY 05/02/2019: CHONDROPLASTY ARTH KNEE (SHX); Left Comment: Surgeon: Brandyn Armando MD; Location: [place] [facility] 06/22/2017: COLONOSCOPY; N/A Comment: Surgeon: Olayinka Shell MD; Location: [place] [facility] 05/01/2018: COLONOSCOPY; N/A Comment: Surgeon: Jeferson Ryder MD; Location: [place] [facility] 06/22/2017: ESOPHAGOGASTRODUODENOSCOPY; N/A Comment: Surgeon: Olayinka Shell MD; Location: [place] [facility] 06/21/2018: ESOPHAGOGASTRODUODENOSCOPY; N/A Comment: Surgeon: Sindhu Rowland MD; Location: [facility] OR [facility] 2011: EXPLORATORY LAPAROTOMY Comment: endometriosis 05/02/2019: KNEE ARTHROSCOPY; Left Comment: Surgeon: Brandyn Armando MD; Location: [place] [facility] as a child x 3: MYRINGOTOMY 05/02/2019: SYNOVECTOMY; Left Comment: Surgeon: Brandyn Armando MD; Location: [place] [facility] Review of patient's family history indicates: Problem: Arthritis Relation: Mother Age of Onset: (Not Specified) Problem: Depression Relation: Mother Age of Onset: (Not Specified) Problem: Other - see comments Relation: Mother Age of Onset: (Not Specified) Comment: benign brain tumor Problem: Breast Cancer Relation: Mother Age of Onset: (Not Specified) Problem: Cancer Relation: Maternal Grandmother Age of Onset: (Not Specified) Problem: Heart Relation: Maternal Grandmother Age of Onset: (Not Specified) Problem: Stroke Relation: Maternal Grandmother Age of Onset: (Not Specified) Problem: Psychiatry Relation: Maternal Grandmother Age of Onset: (Not Specified) Comment: bipolar Problem: Cancer Relation: Paternal Grandmother Age of Onset: (Not Specified) Problem: High cholesterol Relation: Paternal Grandmother Age of Onset: (Not Specified) Problem: Asthma Relation: NoFHx Age of Onset: (Not Specified) Problem: defects Relation: NoFHx Age of Onset: (Not Specified) Problem: Colon Cancer Relation: NoFHx Age of Onset: (Not Specified) Problem: Ovarian Cancer Relation: NoFHx Age of Onset: (Not Specified) Problem: Uterine Cancer Relation: NoFHx Age of Onset: (Not Specified) Problem: Diabetes Relation: NoFHx Age of Onset: (Not Specified) Problem: Genetic Relation: NoFHx Age of Onset: (Not Specified) Problem: Hypertension Relation: NoFHx Age of Onset: (Not Specified) Problem: Mental retardation Relation: NoFHx Age of Onset: (Not Specified) Problem: Neurological Relation: NoFHx Age of Onset: (Not Specified) Problem: Osteoporosis Relation: NoFHx Age of Onset: (Not Specified) Social History Socioeconomic History Marital status: Single [...] Not on file Tobacco Use Smoking status: Light Tobacco Smoker Packs/day: 0.50 Years: 11.00 Pack years: 5.5 Types: Cigarettes Start date: 04/03/2005 Smokeless tobacco: Never Used Tobacco comment: slowly working on quitting, advised to speak w/MD regarding counseling/RX Substance and Sexual Activity Alcohol use: No Drug use: No Sexual activity: Never Partners: Female control/protection: None Lifestyle Physical activity: Days per week: Not on file Minutes per session: Not on file Stress: Not on file Relationships Social connections: Talks on phone: Not on file Gets together: Not on file Attends zoroastrian service: Not on file Active member of club or organization: Not on file Attends meetings of clubs or organizations: Not on file Relationship status: Not on file Intimate partner violence: Fear of current or ex partner: Not on file Emotionally abused: Not on file Physically abused: Not on file Forced sexual activity: Not on file Other Topics Concerns: Not on file Social History Narrative Pt denies current or past physical, sexual or emotional abuse. Vital Signs BP 118/87 | Pulse 107 | Temp 37.2 C (98.9 F) | Resp 18 | Ht 5' 3" (1.6 m) | Wt 249 lb (112.9 kg) | SpO2 98% | BMI 44.11 kg/m Physical Exam Head: Inspection normal. Face diffuse tender Eyes: PERRL, conjunctiva/sclera normal ENT: moist mucous membranes, palate normal, pharynx normal, nose normal Neck: non-tender, no masses or swelling Respiratory/Chest: breath sounds normal, no wheezing Cardiovascular: regular rate and rhythm, heart sounds normal GI: abdomen soft, diffuse tender MS: Legs: diffuse tender to limited exam Back: diffuse tender, no CVA tenderness Skin: hyperesthesia face, body, and limbs; no rash. Normal color and turgor. Neurologic: alert, speech normal, gait normal Psychiatric: Interactive, Mood normal Assessment/Plan 1. Viral illness Viral Illness -- Consistent with current outbreaks -- lots of them right now. No focus suspicious for a bacterial process. Encourage fluids. Eat as desired. Any meals missed while ill will be made up when well again. Contagion: You are exposed to the virus. It multiplies inside your cells and you become contagious, spreading to your contacts. THEN you get sick. You remain contagious until you start getting better. If you have fever, then after it is gone for 24 hours. When getting better, your immune system has cleared the virus, and the rest is your body healing. The last symptoms to resolve are cough and fatigue. Acetaminophen (Tylenol) 500mg take 2 tablets twice a day regularly and up to four times a day as needed for pain. Nortriptyline 25mg (twin of flexeril) each night to neuropathic pain. May double if need to. Narcotics increase inflammation and prolong pain involving muscles, joints, the back, headaches, et cetera. Recommend voiding narcotics where possible. 2. Cough - POCT FLU A AND B (MOLECULAR) Negative - promethazine-dextromethorphan 6.25-15 mg/5 mL syrup; Take 5 mL by mouth every 4 (four) hours as needed for Cough. Dispense: 240 mL; Refill: 1 Mucus color is a function of white cells, which means your immune system is working. The color does not indicate what the immune system is protecting against: virus, bacteria, irritant. For a short video on [employer], search "[employer] What your mucus says about your health". Cough Guaifenesin 100mg / Dextromethorphan 10mL in 5mL (Robitussin DM): 10mL every 4 hours as needed for cough and mucous flow. Many other brands. Recommend those with only guaifenesin & dextromethorphan. For use during the day. Dark Chocolate helps with cough (xanthenes). Research proven in [place] but did not specify how many boxes to eat. Honey 2 teaspoons proven effective in children. Dosage for older kids etc not established. Use as needed. Promethazine/DextroMethorphan When awake at night or when being sleepy from the medicine is all right and safe. Do not use at the same time as Guaifenesin/Dextromethorphan. 3. Dyspnea, unspecified type The feeling of not getting an adequate breath, even though can inhale with competence and blow out acandle. Albuterol will not help -- your lungs are clear. During Hyperventilation you are breathing more than you need to. The breathing center in your brain understands "okay" and "not-okay". "Not okay" instructs you to breathe more -- even when you are already breathing too much. Find a video on Diaphragmatic Breathing on Youtube -- one you are comfortable with (they are constantly changing): I put a hand on my chest and the other hand on my upper abdomen. A normal breath is into the chest -- the chest hand moves. A Diaphragmatic Breath leaves the chest still and the abdomen moves. Some people learn it better when lying down. Learn by practicing when you do not have a problem. Then when you cannot get an adequate breath, Diaphragmatic Breathe for 3-5 minutes by the clock. (you can use paper bag breathing, but no one pulls out a paper bag in latter day.) See Dr. Mclaughlin if follow up needed. Return here as needed. Mily Antonio MA - 06/16/2019 12:00 PM CDT Vanessa Ramachandran is a 34 year old female Chief Complaint Patient presents with Asthma neb didnt help Vitals: 06/16/19 1216 BP: 118/87 Pulse: 107 Resp: 18 Temp: 37.2 C (98.9 F) SpO2: 98% Weight: 249 lb (112.9 kg) Height: 5' 3" (1.6 m) [address] All Vitals taken, allergies and all medications reviewed, fall risk assessed. Pain level 0. Mily Kelsey MA 06/16/2019 12:18 PM documented in this encounter Plan of Treatment Date Type Specialty Care Team Description 06/17/2019 Ancillary Visit Physical Therapy Gt Lewis MD [address] [place] [address] [phone] Donaldo Harry, [address] [address] 06/19/2019 Ancillary Visit Physical Therapy Donaldo Harry , [address] [address] 06/20/2019 Ancillary Visit Physical Therapy Gt Lewis MD [address] [place] [address] [phone] Yumiko Zapien, PT [address] [place] [address] 07/12/2019 Office Visit Orthopedic Surgery Brandyn Armando MD [address] [facility] [address] [place] [address] Health Maintenance Due Date Last Done Comments PNEUMOCOCCAL 0-64 YEARS COMBINED SERIES (1 of 1 - 1993 PPSV23) INFLUENZA VACCINE (#1) 2018 PAP SMEAR 03/08/2020 03/08/2017 DTaP,Tdap,and Td Vaccines (2 - Td) 12/02/2026 12/02/2016 documented as of this encounter Goals Goal Patient Goal Associated Recent Patient-Stated? 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, 5:13 PM [employer]) [place] Ji Note: Be able to function better without pain documented as of this encounter Procedures Procedure Name Priority Date/Time Associated Diagnosis Comme nts POCT FLU A AND B STAT 06/16/2019 12:21 PM Cough Resu lts for this (MOLECULAR) CDT procedure are i n the results section. documented in this encounter Results POCT FLU A AND B (MOLECULAR) (06/16/2019 12:21 PM CDT) Pathologist Sig nature POCT INFLUENZA A neg Negative - Negative POCT INFLUENZA B neg Negative - Negative Specimen Swab Narrative Performed At accurate development and interpretation of all internal controls documented in this encounter Visit Diagnoses Diagnosis Viral illness - Primary Unspecified viral infection, in conditio ns classified elsewhere and of unspecified site Cough Dyspnea, unspecified type documented in this encounter Insurance Payer Benefit Plan Subscriber ID Effective Phone Address Typ e / Group Dates [facility] BCBS OF [id number] 2019-Prese [phone] [address] [place] [id number] [place] [address] [facility] xxxxxxxxx 2017-Pres Medic aid [employer]ALTH[employer] PLUS ent PLAN - MANAGED MEDICAID documented as of this encounter
--- OUTSIDE RECORDS SUMMARY | 2019-07-18 23:21 | XMS REPORT | Summary of Care ---
:1985 Author Organization [facility] Address [address] [place] [address] Care Team Providers Name Role Phone Ventura Mclaughlin MD Primary Care Provider Reason for Visit Reason Comments Refill Request Encounter Details Date Type Department Care Team Description 06/14/2019 Refill [facility] Family Medicine Jesse Martinez MD Refill Request - [address] [place] [address] [place] [address] [phone] Allergies Active Allergy Reactions Severity Noted Date Comments Codeine Other - See comments 02/07/2017 Bad sto mach pain Ibuprofen Other - See comments 12/23/2016 Severe abdominal pain Metoclopramide Hcl Anxiety 06/21/2018 Massive documented as of this encounter (statuses as of 06/14/2019) Medications Medication Sig Dispensed Refills Start End Date Status Date albuterol 2.5 mg Inhale 3 mL 100 Each 12 A ctive /3 mL (0.083 %) every 4 7 nebulizer (four) hours solutionIndication as needed for s: Mild persistent Wheezing or asthma without Shortness of complication Breath. sod Use 1 Bottle 1 Each 0 Active [id number] in each 8 z bottle (NEILMED nostril [...] WHEEZING AND complication FOR SHORTNESS OF BREATH albuterol (PROAIR ProAir HFA 90 0 06/14/19 Discontinued HFA) 90 mcg/actuation 20 (Reord er) mcg/actuation aerosol inhaler inhaler albuterol (PROAIR INHALE TWO 8.5 Each 0 06/14/19 D iscontinued HFA) 90 PUFFS BY 0 20 mcg/actuation MOUTH EVERY 6 inhalerIndications HOURS : Mild persistent NEEDED FOR asthma without WHEEZING AND complication FCOR SHORTNESS OF BREATH documented as of this encounter (statuses as of 06/14/2019) Active Problems Problem Noted Date Left knee pain, unspecified chronicity 04/26/2019 Overview: Added automatically from request for trevor nobles [id number] Asthma in adult without complication 12/31/2018 Abdominal pain 06/19/2018 Other constipation 03/08/2018 Overview: Added automatically from request for trevor nobles [id number] Irritable bowel syndrome with constipation 03/08/2018 Overview: Added automatically from request for trevor nobles [id number] Excessive or frequent menstruation 09/22/2017 Cyst of right ovary 09/22/2017 Morbid obesity with body mass index of 40.0-49.9 06/22 Abdominal pain, right upper quadrant 06/02/2017 Overview: Added automatically from request for trevor nobles [id number] Tobacco use disorder 03/08/2017 Pain pelvic 03/08/2017 [...] Visit Physical Therapy Gt Lewis MD [address] [place] [address] Donaldo Harry, [address] [address] 06/19/2019 Ancillary Visit Physical Therapy Donaldo Harry , [address] [address] 06/20/2019 Ancillary Visit Physical Therapy Gt Lewis MD [address] [place] [address] Yumiko Zapien, PT [address] [place] [address] 07/12/2019 Office Visit Orthopedic Surgery Brandyn Armando MD [address] [place], [place] [address] [phone] Health Maintenance Due Date Last Done Comments PNEUMOCOCCAL 0-64 YEARS COMBINED SERIES (1 of - 1993 PPSV23) INFLUENZA VACCINE (#1) 2018 PAP SMEAR 03/08/2020 03/08/2017 DTaP,Tdap,and Td Vaccines (2 - Td) 12/02/2026 12/02/2016 documented as of this encounter Goals Goal Patient Goal Associated Recent Patient-Stated? 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, 5:13 PM [employer]) [place] Ji Note: Be able to function better without pain documented as of this encounter Results Not on filedocumented in this encounter Visit Diagnoses Diagnosis Mild persistent asthma without complicat ion Unspecified asthma documented in this encounter Insurance Payer Benefit Plan Subscriber ID Effective Phone Address Typ e / Group Dates [facility] BCBS OF [id number] 2019-Prese [phone] [address] PPO/POS [place] [id number] [phone] [place] [address] [facility] xxxxxxxxx 2017-Pres Medic aid [employer]ALTH[employer] COMM STAR PLUS ent PLAN - MANAGED MEDICAID documented as of this encounter
--- OUTSIDE RECORDS SUMMARY | 2019-07-18 23:22 | XMS REPORT | Summary of Care ---
:1985 Author Organization [facility] Address [address] [place] [id number] Care Team Providers Name Role Phone Ventura Mclaughlin MD Primary Care Provider Reason for Visit Reason Comments Cough Shortness of Breath Body Aches Fever Encounter Details Date Type Department Care Team Description 06/18/2019 Office Visit [facility] Huy Mclaughlin MD [address] [place] [address] [place] [address] URI with cough and congestion (Primary D x); Medicine - [place] [address], Acute Care Clinic Fever and chills; [address] [place] [address] cesar SOB (shortness of breath); [place], [place] Myalgia [id number] Allergies Active Allergy Reactions Severity Noted Date Comments Codeine Other - See comments 02/07/2017 Bad sto mach pain Ibuprofen Other - See comments 12/23/2016 Severe abdominal pain Metoclopramide Hcl Anxiety 06/21/2018 Massive documented as of this encounter (statuses as of 06/19/2019) Medications Medication Sig Dispensed Refills Start Date End Date Status albuterol 2.5 mg /3 Inhale 3 mL 100 Each 12 12/23/2016 Active mL (0.083 %) every 4 (four) nebulizer hours as needed solutionIndications: for Wheezing or Mild persistent Shortness of asthma without Breath. complication sod Use 1 Bottle in 1 Each 0 04/13/2017 Act usama uzycq-mvazct-lfkamz each nostril 2 bottle (NEILMED (two) times [...] Take 1 capsule 20 capsule 0 03/15/2018 A ctive (TESSALON PERLES) by mouth 3 100 mg [...] (six) hours as knee needed (knee pain). lamoTRIgine 150 mg 0 04/19/2019 Active tablet HYDROcodone-acetamin Take 1 tablet by 20 tablet 0 05/02/2019 Active ophen (NORCO) 10-325 mouth every 6 mg (six) hours as tabletIndications: needed for Pain Synovitis of left (scale 4-6) or knee Pain (scale 7-10). traMADol 50 mg Take 1 tablet by 40 tablet 0 05/17/2019 Active tablet mouth every 6 (six) hours as needed for Pain (scale 4-6). albuterol (PROAIR INHALE TWO PUFFS 8.5 g 1 06/14/2019 Active HFA) 90 BY MOUTH EVERY 6 mcg/actuation HOURS NEEDED inhalerIndications: FOR WHEEZING AND Mild persistent FOR SHORTNESS OF asthma without BREATH complication promethazine-dextrom Take 5 mL by 240 mL 1 06/16/2019 Active ethorphan 6.25-15 mouth every 4 mg/5 mL (four) hours as syrupIndications: needed for Cough Cough. oseltamivir 75 mg Take 1 capsule 10 capsule 0 06/18/201906/22 Active capsuleIndications: by mouth 2 (two) URI with cough and times daily for congestion, Fever 5 days. and chills, SOB (shortness of breath) documented as of this encounter (statuses as of 06/19/2019) Active Problems Problem Noted Date Left knee pain, unspecified chronicity 04/26/2019 Overview: Added automatically from request for trevor mallorie [id number] Asthma in adult without complication 12/31/2018 Abdominal pain 06/19/2018 Other constipation 03/08/2018 Overview: Added automatically from request for trevor nobles [id number] Irritable bowel syndrome with constipation 03/08/2018 Overview: Added automatically from request for trevor nobles [id number] Excessive or frequent menstruation 09/22/2017 Cyst of right ovary 09/22/2017 Morbid obesity with body mass index of 40.0-49.9 06/22 Abdominal pain, right upper quadrant 06/02/2017 Overview: Added automatically from request for trevor nobles [id number] Tobacco use disorder 03/08/2017 Pain pelvic 03/08/2017 Obesity (BMI 30-39.9) 04/30/2016 documented as of this encounter (statuses as of 06/19/2019) Immunizations Name Administration Dates Next Due Tdap [...] Sign Reading Time Taken Comments Blood Pressure 114/84 06/18/2019 5:14 PM CDT Pulse 90 06/18/2019 5:14 PM CDT Temperature 37.5 C (99.5 F) 06/18/2019 5:14 PM CDT Respiratory Rate - - Oxygen Saturation 99% 06/18/2019 5:14 PM CDT Inhaled Oxygen Concentration - - Weight 112.9 kg (249 lb) 06/18/2019 5:14 PM CDT Height 160 cm (5' 3") 06/18/2019 5:14 PM CDT Body Mass Index 44.11 06/18/2019 5:14 PM CDT documented in this encounter Patient Instructions Patient InstructionsSilvino Desouza MD - 06/18/2019 4:20 PM CDT Patient Education Viral Bronchitis (Adult) You have a viral bronchitis. Bronchitis is inflammation and swelling of the lining of the lungs. This is often caused by an infection. Symptoms include a dry, hacking cough that is worse at night. The cough may bring up yellow-green mucus. You may also feel short of breath or wheeze. Other symptoms may include tiredness, chest discomfort, and chills. Bronchitis that is caused by a virus is not treated with antibiotics. Instead, medicines may be given to help relieve symptoms. Symptoms can last up to 2 weeks, although the cough may last much longer. This illness is contagious during the first few days and is spread through the air by coughing and sneezing, or by direct contact (touching the sick person and then touching your own eyes, nose, or mouth). Most viral illnesses resolve within 10 to 14 days with rest and simple home remedies, although they may sometimes last for several weeks. Home care If symptoms are severe, rest at home for the first 2 to 3 days. When you go back to your usual activities, don't let yourself get too tired. Do not smoke. Also avoid being exposed to secondhand smoke. You may use vqmj-zka-obxtolm medicine to control fever or pain, unless another pain medicine was prescribed.If you have chronic liver or kidney disease or have ever had a stomach ulcer or gastrointestinal bleeding, talk with your healthcare provider before using these medicines. Also talk to yourprovider if you are taking medicine to prevent blood clots. Aspirin should never be given to anyone younger than 18 years of age who is ill with a viral infection or fever. It may cause severe liver orbrain damage. Your appetite may be poor, so a light diet is fine. Avoid dehydration by drinking 6 to 8 glasses of fluids per day (such as water, soft drinks, sports drinks, juices, tea, or soup). Extra fluids will help loosen secretions in the nose and lungs. Oujp-bdr-jmfeydh cough, cold, and sore-throat medicines will not shorten the length of the illness, but they may help to reduce symptoms. Don't use decongestants if you have high blood pressure. Follow-up care Follow up with your healthcare provider, or as advised. If you had an X-ray or ECG (electrocardiogram), a specialist will review it. You will be notified of any new findings that may affect your care. If you are age 65 or older, or if you have a chronic lung disease or condition that affects your immune system, or you smoke, ask your healthcare provider aboutgetting apneumococcal vaccine and a yearly flu shot (influenza vaccine). When to seek medical advice Call your healthcare provider right away if any of these occur: Fever of 100.4F (38C) or higher, or as directed byyour healthcare provider Coughing up increased amounts of colored sputum Weakness, drowsiness, headache, facial pain, ear pain, or a stiff neck Call 911 Call 911 if any of these occur: Coughing up blood Worsening weakness, drowsiness, headache, or stiff neck Trouble breathing, wheezing, or pain with breathing [employer] last reviewed this educational content on 09/01/201719998015-6[address] [employer] [place] [address], [place] [address]. All rights reserved. This information is not intended as a substitute for professional medical care. Always follow your healthcare professional's instructions. Patient Education Viral Upper Respiratory Illness (Adult) You have a viral upper respiratory illness (URI), which is another term for the common cold. This illness is contagious during the first few days. It is spread through the air by coughing and sneezing.It may also be spread by direct contact (touching the sick person and then touching your own eyes, nose, or mouth). Frequent handwashing will decrease risk of spread. Most viral illnesses go away within 7 to 10 days with rest and simple home remedies. Sometimes the illness may last for several weeks. Antibiotics will not kill a virus, and they are generally not prescribed for this condition. Home care If symptoms are severe, rest at home for the first 2 to 3 days. When you resume activity, don't let yourself get too tired. Don't smoke. If you need help stopping, talk with your healthcare provider. Avoid being exposed to cigarette smoke (yours or others). You may use acetaminophen or ibuprofen to control pain and fever, unless another medicine was prescribed.If you have chronic liver or kidney disease, have ever had a stomach ulcer or gastrointestinal bleeding, or are taking blood- thinning medicines, talk with your healthcare provider before usingthese medicines. Aspirin should never be given to anyone under 18 years of age who is ill with a viral infection or fever. It may cause severe liver or brain damage. Your appetite may be poor, so a light diet is fine. Stay well hydrated by drinking 6 to 8 glassesof fluids per day (water, soft drinks, juices, tea, or soup). Extra fluids will help loosen secretions in the nose and lungs. Dxbt-eiq-tmdfiig cold medicines will not shorten the length of time youre sick, but they may be helpful for the following symptoms: cough, sore throat, and nasal and sinus congestion. If you takeprescription medicines, ask your healthcare provider or pharmacist which bbwt-qdm-ymprtig medicines are safe to use. (Note: Don't use decongestants if you have high blood pressure.) Follow-up care Follow up with your healthcare provider, or as advised. When to seek medical advice Call your healthcare provider right away if any of these occur: Cough with lots of colored sputum (mucus) Severe headache; face, neck, or ear pain Difficultyswallowingdue to throat pain Fever of 100.4F (38C) or higher, or as directed by your healthcare provider Call 911 Call 911 if any of these occur: Chest pain, shortness of breath, wheezing, or difficulty breathing Coughing up blood Very severe pain with swallowing, especially if it goes along with a muffled voice [employer] last reviewed this educational content on 09/01/201719996388-8937 [employer]. [address] [place] [address]. All rights reserved. This information is not intended as a substitute for professional medical care. Always follow your healthcare professional's instructions. documented in this encounter Progress Notes Silvino Desouza MD - 06/18/2019 4:20 PM CDT Cc: Chief Complaint Patient presents with Cough Shortness of Breath Body Aches Fever HPI Vanessa Ramachandran is a 34 year old female smoker who presents today for URI symptoms and possible COVID-19 testing. URI Presenting symptoms: cough, fatigue and fever Presenting symptoms comment: SOB Severity: Moderate Onset quality: Sudden Duration: 3 days Timing: Constant Progression: Unchanged Chronicity: New Relieved by: Nothing Worsened by: Nothing Ineffective treatments: Tylenol, cough suppressants. Associated symptoms: myalgias (severe) Associated symptoms: no headaches, no sinus pain, no sneezing, no swollen glands and no wheezing Risk factors: sick contacts (uncle with a recent diagnosis of Influenza, no known COVID-19 + contacts) Risk factors: no recent travel Allergies Vanessa is allergic to codeine; ibuprofen; and reglan [metoclopramide hcl]. Medications Outpatient Medications Prior to Visit Medication Sig Dispense Refill promethazine-dextromethorphan 6.25-15 mg/5 mL syrup Take 5 mL by mouth every 4 (four) hours as needed for Cough. 240 mL 1 albuterol (PROAIR HFA) 90 mcg/actuation inhaler [...] by mouth 2 (two) times daily. sod gckau-djejyt-udzbpc bottle (NEILMED SINUS RINSE COMPLETE) pkdv Use 1 Bottle in each nostril 2 (two) times daily. Use in hot shower 1 hour before bedtime 1 Each 0 albuterol 2.5 mg /3 mL (0.083 %) nebulizer solution Inhale 3 mL every 4 (four) hours as needed for Wheezing or Shortness of Breath. 100 Each 12 No facility-administered medications prior to visit. Histories Past Medical History: Diagnosis Date ADHD (attention deficit hyperactivity disorder) at age 5 Anxiety age 14 Asthma in adult without complication 12/31/2018 Bipolar 1 disorder 2001 Breast disorder breast discharge since age 17 Cyst of right ovary Depression Endometriosis 2010 Esophageal reflux Past Surgical History: Procedure Laterality Date CHOLECYSTECTOMY 08/2016 CHONDROPLASTY ARTH KNEE (SHX) Left 05/02/2019 Surgeon: Brandyn Armando MD; [facility] COLONOSCOPY N/A 06/22/2017 Surgeon: Olayinka Shell MD; [facility] COLONOSCOPY N/A 05/01/2018 Surgeon: Jeferson Ryder MD; [facility] ESOPHAGOGASTRODUODENOSCOPY N/A 06/22/2017 Surgeon: Olayinka Shell MD; [facility] ESOPHAGOGASTRODUODENOSCOPY N/A 06/21/2018 Surgeon: Sindhu Rowland MD; Location: [facility] OR Location EXPLORATORY LAPAROTOMY 2010 endometriosis KNEE ARTHROSCOPY Left 05/02/2019 Surgeon: Brandyn Armando MD; Location: [facility] MYRINGOTOMY as a child x 3 SYNOVECTOMY Left 05/02/2019 Surgeon: Brandyn Armando MD; Location: [facility] Social History Socioeconomic History Marital status: Single [...] file Gets together: Not on file Attends sikhism service: Not on file Active member of [...] NoFHx Review of Systems Constitutional: Positive for fatigue and fever. HENT: Negative. Negative for sinus pain and sneezing. Eyes: Negative. Respiratory: Positive for cough and shortness of breath. Negative for wheezing. Cardiovascular: Negative. Gastrointestinal: Negative. Genitourinary: Negative. Musculoskeletal: Positive for myalgias (severe). Skin: Negative. Neurological: Negative. Negative for headaches. Psychiatric/Behavioral: Negative. Endocrine: Endocrine negative Vital Signs BP 114/84 | Pulse 90 | Temp 37.5 C (99.5 F) (Oral) | Ht 5' 3" (1.6 m) | Wt 249 lb (112.9 kg) | SpO2 99% | BMI 44.11 kg/m Physical Exam Constitutional: She is oriented to person, place, and time. She appears well- developed and well-nourished. Non-toxic appearance. She appears ill. HENT: Right Ear: Tympanic membrane and ear canal normal. Left Ear: Tympanic membrane and ear canal normal. Nose: Mucosal edema and rhinorrhea present. Right sinus exhibits no maxillary sinus tenderness and no frontal sinus tenderness. Left sinus exhibits no maxillary sinus tenderness and no frontal sinus tenderness. Mouth/Throat: Mucous membranes are normal. Posterior oropharyngeal erythema present. No oropharyngeal exudate or posterior oropharyngeal edema. Eyes: Conjunctivae are normal. Right eye exhibits no discharge. Left eye exhibits no discharge. No scleral icterus. Neck: Neck supple. No JVD present. No tracheal deviation present. Cardiovascular: Normal rate, regular rhythm, normal heart sounds and intact distal pulses. No murmur heard. Pulmonary/Chest: Effort normal. No stridor. No tachypnea. No respiratory distress. She has no decreased breath sounds. She has no wheezes. She has no rhonchi. She has no rales. Musculoskeletal: She exhibits no edema. Lymphadenopathy: She has no cervical adenopathy. Neurological: She is alert and oriented to person, place, and time. Skin: Skin is warm and dry. No rash noted. Psychiatric: She has a normal mood and affect. Her behavior is normal. Nursing note and vitals reviewed. Recent Labs 06/18/19 POCTFLUA neg POCTFLUB neg Recent Labs 06/18/19 POCTCRSS neg Assessment/Plan Diagnoses and all orders for this visit: ICD-10-CM ICD-9-CM 1. URI with cough and congestion J06.9 465.9 2. Fever and chills R50.9 780.60 3. SOB (shortness of breath) R06.02 786.05 4. Myalgia M79.10 729.1 We discussed the Ddx of her symptoms and the patient had a lot of questions and concerns that were addressed. The patient is ill but does not meet clinical criteria for ER care given her oxygenation is adequate and her lung exam is benign. The patient will be tested for COVID-19 given the tests for Influenza and Strep A infection are negative and given her presentation. I will cover the patient with Tamiflu given the influenzal-like symptoms and given the possibility it's antiviral activity may help if the patient has COVID-19. Symptomatic therapy suggested: Increase intake of non-caffeinated fluids, gargle PRN sore throat, use mist at bedside PRN congestion, apply facial warm packs PRN sinuspain, Mucinex max strength 1200mg tabs q12hr PRN congestion, and may use acetaminophen, cough suppressant of choice prn. Return for re- evaluation if the symptoms persist and the patient was given strong ER precautions for worsening symptoms. The patient/caregiver was told to self- quarantine until the results of the tests have been given and she will need to self-quarantine for 14 days if positive for COVID-19. A work note was provided. Orders: - POCT FLU A AND B (MOLECULAR) - POCT GRP A STREP (MOLECULAR) - CORONAVIRUS COVID-19 TESTING; Future - oseltamivir 75 mg capsule; Take 1 capsule by mouth 2 (two) times daily for 5 days. Plan of care, desired health behaviors, goals, Ddx, and any prescribed medications were discussed with the patient. This visit involved counseling and coordination of care that comprised more than 50%of the visit time. I spent 29 minute(s) total time with the patient. Education resources and self-management tools were provided and reviewed with the AVS. Patient/guardian/family verbalized understanding and agrees to the plan of care. Barriers to care: None. Ability to manage care: Good. Advanced care planning (living will) information was not given/offered to the patient to review for discussion at a future visit. If applicable, the [place] [employer] database was accessed to review any controlled substance prescription claims data. If the patient is taking prescribed medications, the [employer] prescription claims data in [employer] was reviewed to assess patient compliance with the medication treatment plan. Follow-up: TBD based on the results of diagnostic testing. Follow-up sooner if any problems or concerns. Scribe Attestation I, Linda R Gorman , am scribing for, and in the presence of, [facility] who performed the services described here-in. Linda Gorman, June 18, 2019, 6:02 PM Physician Attestation I, Silvino Desouza MD, personally performed the services described in this documentation , as scribed by, Linda Gorman in my presence and it is both accurate and complete. Silvino Desouza MD June 18, 2019, 6:03 PM Joycelyn Marie MA - 06/18/2019 4:20 PM CDTPt states her uncle tested positive for Flu A & B on Monday. Pt started with her symptoms on Monday, cough, sob, body aches, headache and fever. This morning her fever was 101.6 and has been alternating Tylenol / Ibuprofen. documented in this encounter Plan of Treatment Date Type Specialty Care Team Description 07/12/2019 Office Visit Orthopedic Surgery Brandyn Armando MD [address] [place] [id number] 555 Name Type Priority Associated Diagnoses Date/Ti me CORONAVIRUS COVID-19 LAB Routine URI with cough and 0 06/18/2019 5:53 PM TESTING congestion CDT Fever and chills SOB (shortness of breath) Name Type Priority Associated Diagnoses Order S chedule CORONAVIRUS COVID-19 LAB Routine URI with cough and E xpected: 06/18/2019, TESTING congestion Expires: 06/17/2020 Fever and chills SOB (shortness of breath) Health Maintenance Due Date Last Done Comments PNEUMOCOCCAL 0-64 YEARS COMBINED 1993 SERIES (1 of 1 - PPSV23) PAP SMEAR 03/08/2020 03/08/2017 INFLUENZA VACCINE (#1) 2020 Postponed from 12/02/2018 (Refused) DTaP,Tdap,and Td Vaccines (2 - 12/02/2026 12/02/2016 Td) documented as of this encounter Goals Goal Patient Goal Associated Recent Patient-Stated? 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, 5:13 PM DESIGN CONSULTANT) [place] Ji Note: Be able to function better without pain documented as of this encounter Procedures Procedure Name Priority Date/Time Associated Diagnosis Comme nts POCT FLU A AND B Routine 06/18/2019 URI with cough and Resul ts for this (MOLECULAR) congestion procedure are in the Fever and chills results section. SOB (shortness of breath) POCT GRP A STREP Routine 06/18/2019 URI with cough and Resul ts for this (MOLECULAR) congestion procedure are in the Fever and chills results section. SOB (shortness of breath) documented in this encounter Results POCT GRP A STREP (MOLECULAR) (06/18/2019) Pathologist Sig nature POCT GP A STREP neg Negative - Negative Specimen Swab - THROAT POCT FLU A AND B (MOLECULAR) (06/18/2019) Pathologist Sig nature POCT INFLUENZA A neg Negative - Negative POCT INFLUENZA B neg Negative - Negative Specimen Swab documented in this encounter Visit Diagnoses Diagnosis URI with cough and congestion - Primary Fever and chills Fever, unspecified SOB (shortness of breath) Shortness of breath Myalgia Mylagia and myositis, unspecified documented in this encounter Insurance Payer Benefit Plan Subscriber ID Effective Phone Address Typ e / Group Dates [facility] BCBS OF [id number] 2019-Prese [phone] [address]PO/POS [place] nt [phone] [place] [address] [facility] xxxxxxxxx 2017-Pres Medic aid [employer]ALTH[employer] PLUS ent PLAN - MANAGED MEDICAID documented as of this encounter
--- OUTSIDE RECORDS SUMMARY | 2019-07-18 23:22 | XMS REPORT | Summary of Care ---
:1985 Author Organization [facility] - [facility] Address [address] [place] [address] Care Team Providers Name Role Phone Ventura Mclaughlin MD Primary Care Provider Reason for Visit Reason Comments Notification Encounter Details Date Type Department Care Team Description 06/17/2019 Telephone [facility] Family Medicine Huy Mclaughlin, Notification - Asif ROMERO [address] [place] [address]-5 [address] [place] [address] [phone] Allergies Active Allergy Reactions Severity Noted Date [...] in 1 Each 0 04/13/2017 Act usama vmihy-hxjibc-vdbbqo each nostril 2 bottle (NEILMED SINUS (two) [...] knee (scale 4-6) or Pain (scale 7-10). traMADol 50 mg tablet Take 1 tablet by 40 tablet 0 05/17/2019 Active mouth every 6 (six) hours as needed for Pain (scale 4-6). albuterol (PROAIR INHALE TWO PUFFS 8.5 g 1 06/14/2019 Active HFA) 90 mcg/actuation BY MOUTH EVERY 6 inhalerIndications: HOURS NEEDED Mild persistent FOR WHEEZING AND asthma without FOR SHORTNESS OF complication BREATH promethazine-dextrome Take 5 mL by 240 mL 1 06/16/2019 Active thorphan 6.25-15 mg/5 mouth every 4 mL syrupIndications: (four) hours as Cough needed for Cough. documented as of this encounter (statuses as of 06/19/2019) Active Problems Problem Noted Date Left knee pain, unspecified chronicity 04/26/2019 Overview: Added automatically from request for trevor mallorie [id number] Asthma in adult without complication 12/31/2018 Abdominal pain 06/19/2018 Other constipation 03/08/2018 Overview: Added automatically from request for trevor mallorie [id number] Irritable bowel syndrome with constipation 03/08/2018 Overview: Added automatically from request for trevor mallorie [id number] Excessive or frequent menstruation 09/22/2017 Cyst of right ovary 09/22/2017 Morbid obesity with body mass index of 40.0-49.9 06/22 Abdominal pain, right upper quadrant 06/02/2017 Overview: Added automatically from request for trevro nobles [id number] Tobacco use disorder 03/08/2017 Pain pelvic 03/08/2017 [...] Treatment Date Type Specialty Care Team Description 06/19/2019 Ancillary Visit Physical Therapy Donaldo Harry , CHANNEL PROCESS SUPERVISOR [address] [place] [address] 06/20/2019 Ancillary Visit Physical Therapy Gt Lewis MD [address] [place] [address] Yumiko Zapien, PT [address] [place] [address] 07/12/2019 Office Visit Orthopedic Surgery Brandyn Armando MD [address] [facility] [address] [place], [place] [address] Health Maintenance Due Date [...] track No Matt (04/16/2019 Dandy, 5:13 PM SPORTS MEDICINE PHYSICIAN) Margy, PT Note: Be able to function better without pain documented as of this encounter Results Not on filedocumented in this encounter Insurance Payer Benefit Plan Subscriber ID Effective Phone Address Typ e / Group Dates [place] OF [id number] 2019-Teresita [phone] [address] PPO/POS [place] nt [phone] [id number] [place] [address] [facility] xxxxxxxxx 2017-Pres Medic aid HEALTHCARE COMM STAR PLUS ent PLAN - MANAGED MEDICAID documented as of this encounter
--- OUTSIDE RECORDS SUMMARY | 2019-07-18 23:23 | XMS REPORT | Summary of Care ---
:1985 Author Organization [facility] Address [address] [place] [address] Care Team Providers Name Role Phone Ventura Mclaughlin MD Primary Care Provider Reason for Visit Reason Comments Cough Shortness of Breath Body Aches Fever Encounter Details Date Type Department Care Team Description 06/18/2019 Office Visit [facility] Family Huy Mclaughlin MD [address] [place] [address] [place] [address] URI with cough and congestion (Primary D x); Medicine - [place] [address], Acute Care Clinic Fever and chills; [address] [place] [address] cesar SOB (shortness of breath); [place], [place] Myalgia [address] Allergies Active Allergy Reactions [...] in 1 Each 0 04/13/2017 Act usama qhdfg-sescqf-dnycvi each nostril 2 bottle (NEILMED (two) times [...] Added automatically from request for trevor mallorie [id number] Asthma in adult without complication 12/31/2018 Abdominal pain 06/19/2018 Other constipation 03/08/2018 Overview: Added automatically from request for trevor nobles [id number] Irritable bowel syndrome with constipation 03/08/2018 Overview: Added automatically from request for trevor nobles [id number] Excessive or frequent menstruation 09/22/2017 Cyst of right ovary 09/22/2017 Morbid obesity with body mass index of 40.0-49.9 06/22 Abdominal pain, right upper quadrant 06/02/2017 Overview: Added automatically from request for trevor nobles [id number] Tobacco use disorder 03/08/2017 Pain pelvic 03/08/2017 [...] exposed to secondhand smoke. You may use ltpa-wlb-wbwtqtd medicine to control fever or pain, unless [...] loosen secretions in the nose and lungs. Uyim-yqp-csvnuxl cough, cold, and sore-throat medicines will not [...] Trouble breathing, wheezing, or pain with breathing Intrinsity last reviewed this educational content on 09/01/201719994772-4893 [employer]. [address] [place] [address], [place] [address]. All rights reserved. This information is not [...] loosen secretions in the nose and lungs. Dsce-dxj-dfzrfkn cold medicines will not shorten the length of time youre sick, but they may be helpful for the following symptoms: cough, sore throat, and nasal and sinus congestion. If you takeprescription medicines, ask your healthcare provider or pharmacist which hvzm-zoc-dztvnhj medicines are safe to use. (Note: Don't [...] it goes along with a muffled voice Intr[employer] last reviewed this educational content on 09/01/201719994688-0943 [employer]. [address] [place] [address]. All rights reserved. This information is not [...] by mouth 2 (two) times daily. sod tomje-tygvci-xxxonx bottle (NEILMED SINUS RINSE COMPLETE) pkdv Use [...] N/A 06/21/2018 Surgeon: Sindhu Rowland MD; Location: [facility] OR Location EXPLORATORY LAPAROTOMY 2010 endometriosis KNEE ARTHROSCOPY Left 05/02/2019 Surgeon: Brandyn Armando MD; Location: [facility] [place] MYRINGOTOMY as a child x 3 SYNOVECTOMY Left 05/02/2019 Surgeon: Brandyn Armando MD; Location: [facility] Social History Socioeconomic History Marital status: Single [...] file Gets together: Not on file Attends orthodoxy service: Not on file Active member of [...] at a future visit. If applicable, the [place] INTERNAL CONTROLS MANAGER database was accessed to review any controlled substance prescription claims data. 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
--- OUTSIDE RECORDS SUMMARY | 2019-07-18 23:23 | XMS REPORT | Summary of Care ---
:1987 Author Organization [facility] Address [address] [place] [address] Care Team Providers Name Role Phone Ventura Mclaughlin MD Primary Care Provider Reason for Visit Reason Comments Follow-up (Routine) Status Reason Specialty Diagnoses / Referred By Referred To Procedures Contact Contact Authorized Physical Therapy Diagnoses Synovitis of left knee Brandyn Armando Adc Physical Procedures CONSULT/REFERRAL PHYSICAL THERAPY [place] PHYSICAL THERAPY EVALUATION LOW COMPLEX 20 MINS [place] PHYSICAL THERAP[place] EVALUATION MOD COMPLEX 30 MINS [place] PHYSICAL THERAPY EVALUATION HIGH COMPLEX 45 MINS [place] THERAPEUTIC EXERCISES MD Therapy [place] NEUROMUSC REE DUCAT,1+ AREAS, EA 15 MIN [place] MANUAL THER TECH,1+REGIONS,EA 15 MIN [place] THERAPEUT ACTVITY DIRECT PT CONTACT EACH 15 MIN [place] SELF-CARE/HOME MGMT TRAINING EACH 15 MINUTES [address] [facility] Ta crisostomo [id number] Office Building [address] Phone: [address] [place], [place] Fax: [phone] Encounter Details Date Type Department Care Team Description 06/24/2019 Ancillary Visit [facility] Gt Lewis MD [address] [place] [address] [place] [address] Decreased muscle strength (Primary Dx); Physical Therapy- Donaldo Harry, STEEL TURNER [address] [place] [address] Acute pain of left knee; [place] Antalgic gait; Professional Office Chronic pain of left knee [address] [place] [phone] Allergies Active Allergy Reactions Severity Noted Date Comments Codeine Other - See comments 02/07/2017 Bad sto mach pain Ibuprofen Other - See comments 12/23/2016 Severe abdominal pain Metoclopramide Hcl Anxiety 06/21/2018 Massive documented as of this encounter (statuses as of 06/24/2019) Medications Medication Sig Dispensed Refills Start Date End Date Status albuterol 2.5 mg /3 Inhale 3 mL 100 Each 12 12/23/2016 Active mL (0.083 %) every 4 (four) nebulizer hours as needed solutionIndications: for Wheezing or Mild persistent Shortness of asthma without Breath. complication sod Use 1 Bottle in 1 Each 0 04/13/2017 Act usama ggdun-pkinqx-cstqij each nostril 2 bottle (NEILMED SINUS (two) [...] as of this encounter (statuses as of 06/24/2019) Active Problems Problem Noted Date Left knee pain, unspecified chronicity 04/26/2019 Overview: Added automatically from request for trevor mallorie [id number] Asthma in adult without complication 12/31/2018 Abdominal pain 06/19/2018 Other constipation 03/08/2018 Overview: Added automatically from request for trevor mallorie [id number] Irritable bowel syndrome with constipation 03/08/2018 Overview: Added automatically from request for trevor mallorie [id number] Excessive or frequent menstruation 09/22/2017 Cyst of right ovary 09/22/2017 Morbid obesity with body mass index of 40.0-49.9 06/22 Abdominal pain, right upper quadrant 06/02/2017 Overview: Added automatically from request for trevor mallorie [id number] Tobacco use disorder 03/08/2017 Pain pelvic 03/08/2017 Obesity (BMI 30-39.9) 04/30/2016 documented as of this encounter (statuses as of 06/24/2019) Immunizations Name Administration Dates Next Due Tdap [...] in this encounter Progress Notes Donaldo Harry, STEEL TURNER - 06/24/2019 4:20 PM CDT Physical Therapy Treatment Date: June 24, 2019 Subjective: Patient reports doing better than last week. Reports 8/10 pain to knee now. 1. Decreased muscle strength 2. Acute pain of left knee 3. Antalgic gait 4. Chronic pain of left knee Objective: Outpatient PT Treatment Row Name 06/24/19 1600 General Visit Number 7 Chart Reviewed Yes Family/Caregiver Present Yes Pain Assessment Pain Assessment 0-10 Pain Score 8 Pain Location Knee Pain Orientation Left Pain Descriptors Aching;Sharp Therapeutic Exercise Enter Number of Therapeutic Exercise Activities: 4 Therapeutic Exercise Activity 1 Stretches: HS Stretch 3x30", Heel Slides 5"x15 Therapeutic Exercise Activity 2 Quad sets 5"x2', SLR 2x10; SAQ 20x3" hold Therapeutic Exercise Acitivity 3 Hip Add with Ball x 20, Hip Abd with L3 x20 Manual Therapy Manual Therapy Activity 1 Other Activity Other Activity 1 L5 x6' HEP: Continue established HEP Assessment: Good exercise tolerance today. No indication (verbal or expression) of pain during exercise today.Able to increase exercise as noted. Good progress today. Plan: Patient to continue with POC focusing on strengthening, decreasing pain, and increasing overall mobility. Donaldo Harry PTA [facility] Lic [id number] [facility] Rehab Services [facility] [phone] Margy Gutierrez PT supv documented in this encounter Plan of Treatment Date Type Specialty Care Team Description 07/12/2019 Office Visit Orthopedic Surgery Brandyn Armando MD [address] [place] [address] [phone] Health Maintenance Due Date Last Done Comments [...] track Moon Gutierrez (04/16/2019 Dandy, 5:13 PM PERIOPERATIVE TECH) [place] Ji Note: Be able to function [...] Typ e / Group Dates [place] BCBS OF [id number] 2019-Teresita [phone] [address] PPO/POS [place] nt 87 [id number] [place] [address] [facility] xxxxxxxxx 2017-Pres Medic aid HEALTHCARE COMM STAR PLUS ent PLAN - MANAGED MEDICAID documented as of this encounter
--- OUTSIDE RECORDS SUMMARY | 2019-07-18 23:23 | XMS REPORT | Summary of Care ---
:1987 Author Organization [facility] Address [address] [place] [address] Care Team Providers Name Role Phone Ventura Mclaughlin MD Primary Care Provider Reason for Visit Reason Comments Assessment TRIAGE Encounter Details Date Type Department Care Team Description 06/18/2019 Telephone [facility] Family Jesse Mclaughlin ent (TRIAGE) Medicine - Asif Whitehead MD [address] [place] [address] [place], [place] [phone] Allergies Active Allergy Reactions Severity Noted Date [...] in 1 Each 0 04/13/2017 Act usama ptfgl-echxzz-vdibws each nostril 2 bottle (NEILMED SINUS (two) [...] Added automatically from request for trevor mallorie [id number] Asthma in adult without complication 12/31/2018 Abdominal pain 06/19/2018 Other constipation 03/08/2018 Overview: Added automatically from request for trevor mallorie [id number] Irritable bowel syndrome with constipation 03/08/2018 Overview: Added automatically from request for trevor mallorie [id number] Excessive or frequent menstruation 09/22/2017 Cyst of right ovary 09/22/2017 Morbid obesity with body mass index of 40.0-49.9 06/22 Abdominal pain, right upper quadrant 06/02/2017 Overview: Added automatically from request for trevor nobles [id number] Tobacco use disorder 03/08/2017 Pain pelvic 03/08/2017 [...] Armando MD [address] [place], [place] [address] Health Maintenance Due Date [...] track Moon Gutierrez (04/16/2019 Dandy, 5:13 PM PAIN MEDICINE PHYSICIAN) [place] Ji Note: Be able to function better without pain documented as of this encounter Results Not on filedocumented in this encounter Insurance Payer Benefit Plan Subscriber ID Effective Phone Address Typ e / Group Dates [facility] BCBS OF [id number] 2019-Prese [phone] [address] PPO/POS [place] nt 87 [id number] [place] [address] [facility] xxxxxxxxx 2017-Pres Medic aid HEALTHCARE COMM STAR PLUS ent PLAN - MANAGED MEDICAID documented as of this encounter
--- OUTSIDE RECORDS SUMMARY | 2019-07-18 23:23 | XMS REPORT | Summary of Care ---
:1987 Author Organization [facility] - [facility] Address [address] [place] [address] Care Team Providers Name Role Phone Ventura Mclaughlin MD Primary Care Provider Reason for Visit Reason Comments Letters Encounter Details Date Type Department Care Team Description 06/22/2019 Telephone [facility] Family Medicine Silvino Isabel MD Letters - [place] [address] [facility] [address] [place] [address] [place] [address] [phone] Allergies Active Allergy Reactions Severity Noted Date Comments Codeine Other - See comments 02/07/2017 Bad sto mach pain Ibuprofen Other - See comments 12/23/2016 Severe abdominal pain Metoclopramide Hcl Anxiety 06/21/2018 Massive documented as of this encounter (statuses as of 06/22/2019) Medications Medication Sig Dispensed Refills Start Date End Date Status albuterol 2.5 mg /3 Inhale 3 mL 100 Each 12 12/23/2016 Active mL (0.083 %) every 4 (four) nebulizer hours as needed solutionIndications: for Wheezing or Mild persistent Shortness of asthma without Breath. complication sod Use 1 Bottle in 1 Each 0 04/13/2017 Act usama iovrn-lhkbzn-mamayz each nostril 2 bottle (NEILMED (two) times [...] as of this encounter (statuses as of 06/22/2019) Active Problems Problem Noted Date Left knee pain, unspecified chronicity 04/26/2019 Overview: Added automatically from request for trevor nobles [id number] Asthma in adult without complication 12/31/2018 Abdominal pain 06/19/2018 Other constipation 03/08/2018 Overview: Added automatically from request for trevor nobles [id number] Irritable bowel syndrome with constipation 03/08/2018 Overview: Added automatically from request for trevor nobles [id number] Excessive or frequent menstruation 09/22/2017 Cyst of right ovary 09/22/2017 Morbid obesity with body mass index of 40.0-49.9 06/22 Abdominal pain, right upper quadrant 06/02/2017 Overview: Added automatically from request for trevor nobles [id number] Tobacco use disorder 03/08/2017 Pain pelvic 03/08/2017 Obesity (BMI 30-39.9) 04/30/2016 documented as of this encounter (statuses as of 06/22/2019) Immunizations Name Administration Dates Next Due Tdap [...] Treatment Date Type Specialty Care Team Description 06/24/2019 Ancillary Visit Physical Therapy Donaldo Harry PTA [address] [place] [address] 07/12/2019 Office Visit Orthopedic Surgery Brandyn Armando MD [address] [facility] [address] [place], [place] [address] [phone] Health Maintenance Due Date Last Done Comments [...] track No Matt (04/16/2019 Dandy, 5:13 PM PRACTICE REPRESENTATIVE) [place] Ji Note: Be able to function better without pain documented as of this encounter Results Not on filedocumented in this encounter Insurance Payer Benefit Plan Subscriber ID Effective Phone Address Typ e / Group Dates [place] BCBS OF [id number] 2019-Teresita [phone] [address] PPO/POS [place] nt 87 [id number] [place] [address] [facility] xxxxxxxxx 2017-Pres Medic aid HEALTHCARE COMM STAR PLUS ent PLAN - MANAGED MEDICAID documented as of this encounter
--- OUTSIDE RECORDS SUMMARY | 2019-07-18 23:24 | XMS REPORT | Summary of Care ---
:1987 Author Organization [facility] Address [address] [place] [address] Care Team Providers Name Role Phone Ventura Mclaughlin MD Primary Care Provider Reason for Visit Reason Comments UPPER RESPIRATORY INFECTION Encounter Details Date Type Department Care Team Description 07/08/2019 Telephone [facility] Family [facility], Acute Care UPPER RESPIRATORY Medicine [facility] INFECTION [address] [place] [phone] Allergies Active Allergy Reactions Severity Noted Date Comments Codeine Other - See comments 02/07/2017 Bad sto mach pain Ibuprofen Other - See comments 12/23/2016 Severe abdominal pain Metoclopramide Hcl Anxiety 06/21/2018 Massive documented as of this encounter (statuses as of 07/08/2019) Medications Medication Sig Dispensed Refills Start Date End Date Status albuterol 2.5 mg /3 Inhale 3 mL 100 Each 12 12/23/2016 Active mL (0.083 %) every 4 (four) nebulizer hours as needed solutionIndications: for Wheezing or Mild persistent Shortness of asthma without Breath. complication sod Use 1 Bottle in 1 Each 0 04/13/2017 Act usama obptv-fidjzk-xksifs each nostril 2 bottle (NEILMED SINUS (two) [...] as of this encounter (statuses as of 07/08/2019) Active Problems Problem Noted Date Left knee pain, unspecified chronicity 04/26/2019 Overview: Added automatically from request for trevor mallorie [id number] Asthma in adult without complication 12/31/2018 Abdominal pain 06/19/2018 Other constipation 03/08/2018 Overview: Added automatically from request for trevor mallorie [id number] Irritable bowel syndrome with constipation 03/08/2018 Overview: Added automatically from request for trevor mallorie [id number] Excessive or frequent menstruation 09/22/2017 Cyst of right ovary 09/22/2017 Morbid obesity with body mass index of 40.0-49.9 06/22 Abdominal pain, right upper quadrant 06/02/2017 Overview: Added automatically from request for trevor mallorie [id number] Tobacco use disorder 03/08/2017 Pain pelvic 03/08/2017 Obesity (BMI 30-39.9) 04/30/2016 documented as of this encounter (statuses as of 07/08/2019) Immunizations Name Administration Dates Next Due Tdap [...] Treatment Date Type Specialty Care Team Description 07/08/2019 Urgent Care Family Medicine Pob1, Acute Care Clinic 07/12/2019 Telemedicine Visit Orthopedic Surgery Zenia Armando MD [address] [place], [place] [address] Health Maintenance Due Date [...] track Moon Gutierrez (04/16/2019 Dandy, 5:13 PM BEHAVIORAL GENETICIST) [place] Ji Note: Be able to function better without pain documented as of this encounter Results Not on filedocumented in this encounter Insurance Payer Benefit Plan Subscriber ID Effective Phone Address Typ e / Group Dates [place] BCBS OF [id number] 2019-Prese [phone] [address] PPO/POS [place] nt 87 [id number] [place] [address] [facility] xxxxxxxxx 2017-Pres Medic aid HEALTHCARE COMM STAR PLUS ent PLAN - MANAGED MEDICAID documented as of this encounter
--- OUTSIDE RECORDS SUMMARY | 2019-07-18 23:24 | XMS REPORT | Summary of Care ---
:1985 Author Organization [facility] Address [address] [place] [address] Care Team Providers Name Role Phone Ventura Mclaughlin MD Primary Care Provider Reason for Visit Reason Comments Shortness of Breath pt is also asthmatic Fever 101 highest Cough Encounter Details Date Type Department Care Team Description 07/08/2019 Urgent Care [facility] Family Lydia Gillespie FNP [address] [address] Cough (Primary Dx); Medicine - [place] [address], Acute Care Clinic Environmental allergies; [facility] Driv e Mild intermittent asthma wit hout complication; [place], [place] Fever, unspecif ied fever cause [id number] Allergies Active Allergy Reactions Severity Noted [...] in 1 Each 0 04/13/2017 Act usama jhfir-xsiqwr-dxcoxx each nostril 2 bottle (NEILMED (two) times [...] hours as syrupIndications: needed for Cough Cough. brompheniramine-pseu Take 5 mL by 200 mL 0 07/08/201907/17 Active doephedrine-DM mouth 4 (four) (BROMFED DM) 2-30-10 times daily as mg/5 mL needed for Cough syrupIndications: for up to 10 Cough days. documented as of this encounter (statuses as of 07/08/2019) Active Problems Problem Noted Date Left knee pain, unspecified chronicity 04/26/2019 Overview: Added automatically from request for trevor [id number] Asthma in adult without complication 12/31/2018 Abdominal pain 06/19/2018 Other constipation 03/08/2018 Overview: Added automatically from request for trevor nolbes [id number] Irritable bowel syndrome with constipation 03/08/2018 Overview: Added automatically from request for rtevor nobles [id number] Excessive or frequent menstruation 09/22/2017 Cyst of right ovary 09/22/2017 Morbid obesity with body mass index of 40.0-49.9 06/22 Abdominal pain, right upper quadrant 06/02/2017 Overview: Added automatically from request for trevor nobles [id number] Tobacco use disorder 03/08/2017 Pain pelvic 03/08/2017 [...] Sign Reading Time Taken Comments Blood Pressure 120/84 07/08/2019 2:06 PM CDT Pulse 90 07/08/2019 2:06 PM CDT Temperature 37.4 C (99.3 F) 07/08/2019 2:06 PM CDT Respiratory Rate 19 07/08/2019 2:06 PM CDT Oxygen Saturation 99% 07/08/2019 2:06 PM CDT Inhaled Oxygen Concentration - - Weight 113.4 kg (250 lb) 07/08/2019 2:06 PM CDT Height - - Body Mass Index 44.29 06/18/2019 5:14 PM CDT documented in this encounter Progress Notes Rochelle Gillespie, WALDO - 07/08/2019 2:00 PM CDT Cc: Chief Complaint Patient presents with Shortness of Breath pt is also asthmatic Fever 101 highest Cough Vanessa Ramachandran is a 34 year old female. Patient has allergy induced asthma, in the past few days she has had sporadic fever with T-max of 101. She was seen in this clinic 17 of June with similar symptoms and tested negative for Covid-19. Today, she called in sick to work due to her symptoms and was told to be tested again. [facility] considering her hx of asthma and working in public. 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 sod zojjg-rzszgk-zupfxg bottle (NEILMED SINUS RINSE COMPLETE) pkdv Use [...] Left 05/02/2019 Surgeon: Brandyn Armando MD; Location: [facility] OR Location COLONOSCOPY N/A 06/22/2017 Surgeon: Olayinka Shell MD; Location: [facility] OR Location COLONOSCOPY N/A 05/01/2018 Surgeon: Jeferson Ryder MD; Location: [facility] OR Location ESOPHAGOGASTRODUODENOSCOPY N/A 06/22/2017 Surgeon: Olayinka Shell MD; Location: [facility] OR Location ESOPHAGOGASTRODUODENOSCOPY N/A 06/21/2018 Surgeon: Sindhu Rowland MD; Location: [facility] OR [facility] EXPLORATORY LAPAROTOMY 2011 endometriosis KNEE ARTHROSCOPY Left 05/02/2019 Surgeon: Brandyn Armando MD; Location: [facility] OR [facility] MYRINGOTOMY as a child x 3 SYNOVECTOMY Left 05/02/2019 Surgeon: Brandyn Armando MD; Location: [facility] OR [facility] Social History Socioeconomic History Marital status: Single [...] file Gets together: Not on file Attends religion service: Not on file Active member of [...] Systems Constitutional: Positive for fatigue and fever. Negative for activity change, appetite change and chills. HENT: Negative. Eyes: Negative. Respiratory: Positive for cough and shortness of breath. Negative for apnea, choking, chest tightness and wheezing. Cardiovascular: Negative. Negative for chest pain, palpitations and leg swelling. Gastrointestinal: Negative. Skin: Negative. Neurological: Negative. Endocrine: Endocrine negative Vital Signs BP 120/84 (BP Location: Left arm, Patient Position: Sitting, BP CUFF SIZE: Adult Medium) | Pulse 90 | Temp 37.4 C (99.3 F) (Oral) | Resp 19 | Wt 250 lb (113.4 kg) | SpO2 99% | BMI 44.29 kg/m Physical Exam Constitutional: She is oriented to person, place, and time. She appears well- developed and well-nourished. HENT: Head: Normocephalic. Right Ear: Hearing, tympanic membrane, external ear and ear canal normal. Left Ear: Hearing, tympanic membrane, external ear and ear canal normal. Nose: Nose normal. Right sinus exhibits no maxillary sinus tenderness and no frontal sinus tenderness. Left sinus exhibits no maxillary sinus tenderness and no frontal sinus tenderness. Mouth/Throat: Uvula is midline, oropharynx is clear and moist and mucous membranes are normal. No oropharyngeal exudate, posterior oropharyngeal edema or posterior oropharyngeal erythema. No tonsillar exudate. Eyes: Conjunctivae and lids are normal. Neck: Normal range of motion. Neck supple. Cardiovascular: Normal rate, regular rhythm, normal heart sounds and intact distal pulses. Exam reveals no gallop and no friction rub. No murmur heard. Pulmonary/Chest: Effort normal and breath sounds normal. No respiratory distress. She has no wheezes. She has no rales. She exhibits no tenderness. Abdominal: Soft. Bowel sounds are normal. She exhibits no distension. There is no tenderness. Lymphadenopathy: Head (right side): No submental, no submandibular, no tonsillar, no preauricular and no posterior auricular adenopathy present. Head (left side): No submental, no submandibular, no tonsillar, no preauricular and no posterior auricular adenopathy present. She has no cervical adenopathy. Neurological: She is alert and oriented to person, place, and time. Skin: Skin is warm and dry. Capillary refill takes less than 2 seconds. No rash noted. No erythema. No pallor. Nursing note and vitals reviewed. Assessment/Plan 1. Fever: Covid test done pending result. In the meantime, quarantine in place, treat symptoms with OTC meds, Tylenol as needed but no NSAIDs. Stay in quarantine until symptoms subsides, plus 3 days afterwards or until you hear otherwise. Follow up with your PCP as needed, and if with worsening of symptoms, any respiratory distress, go to the ER. 2. Cough: Brofed given for symptoms relief. 3. Environmental allergies: continue claritin. Stay away from or limit your time near the allergen cautious with OTC decongestant due to risk of rebound and considering HTN Antihistamines block the release of histamine during the allergic response. They work better whentaken before symptoms develop. Unless a prescription antihistamine was prescribed, you can take vgys-cbr-uevfrgl antihistamines that do not cause drowsiness Steroid nasal sprays or oral steroids may also be prescribed for more severe symptoms. These helpto reduce the local inflammation that can add to the allergic response. With asthma, pollen season may make your asthma symptoms worse. It is important that you use yourasthma medicines as directed during this time to prevent or treat attacks. Some persons with asthma have asthma symptoms that get worse when they take antihistamines. This is due to the drying effect on the lungs. If you notice this, stop the antihistamines, drink extra fluids and notify your doctor. If you have sinus congestion or drainage, a saline nasal rinse may give relief. A saline nasal rinse lessens the swelling and clears excess mucus. This allows sinuses to drain. Prepackaged kits are sold at most drug stores. These contain pre-mixed salt packets and an irrigation device. 4. Asthma: continue current therapies, if with any respiratory distress unmanageable with current meds, go to the ER. Plan of care, desired health behaviors, goals, and medication discussed with patient. Education resources provided and reviewed with AVS. Patient/guardian/family verbalized understanding & agrees to plan of care. This visit did not involve counseling and coordination that comprised more than 50% of the visit time. If applicable, the [facility] database was accessed to review any controlled substance prescription claims data. The [employer] prescription claims data in [employer] was reviewed to assess patient compliance with the medication treatment plan. Rozina Maurer - 07/08/2019 2:00 PM CDT Vanessa Ramachandran is a 34 year old female Chief Complaint Patient presents with Shortness of Breath pt is also asthmatic Fever 101 highest Cough Vitals: 07/08/19 1406 BP: 120/84 BP Location: Left arm Patient Position: Sitting BP CUFF SIZE: Adult Medium Pulse: 90 Resp: 19 Temp: 37.4 C (99.3 F) TempSrc: Oral SpO2: 99% Weight: 250 lb (113.4 kg) [address] [place] All Vitals taken, allergies and all medications reviewed, fall risk assessed. Pain level 2/10. 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) [place] Ji Note: Be able to function better without pain documented as of this encounter Results Not on filedocumented in this encounter Visit Diagnoses Diagnosis Cough - Primary Environmental allergies Allergic rhinitis, cause unspecified Mild intermittent asthma without complic ation Unspecified asthma Fever, unspecified fever cause documented in this encounter Insurance Payer Benefit Plan Subscriber ID Effective Phone Address Typ e / Group Dates [facility] BCBS OF [id number] 2019-Prese [phone] [address] PPO/POS [facility] [id number] [place] [address] [facility] xxxxxxxxx 2017-Pres Medic aid HEALTHCARE COMM STAR PLUS ent PLAN - MANAGED MEDICAID documented as of this encounter"
--- OUTSIDE RECORDS SUMMARY | 2019-07-18 23:25 | XMS REPORT | Summary of Care ---
:1985 Author Organization [facility] Address [address] [place] [address] Care Team Providers Name Role Phone Ventura Mclaughlin MD Primary Care Provider Reason for Visit Reason Comments Follow-up Encounter Details Date Type Department Care Team Description 07/12/2019 Telemedicine Visit [facility] Brandyn Armando Tear of lennie Orthopaedic Surgery- MD Inocente meniscus of left [facility] [address] [facility] knee, current, [address] [facility] [id number] unspecified tear [address] [place], [place] type, [place] [address] encounter (Primary [id number] Dx) [phone] Allergies Active Allergy Reactions Severity Noted Date Comments Codeine Other - See comments 02/07/2017 Bad sto mach pain Ibuprofen Other - See comments 12/23/2016 Severe abdominal pain Metoclopramide Hcl Anxiety 06/21/2018 Massive documented as of this encounter (statuses as of 07/12/2019) Medications Medication Sig Dispensed Refills Start Date End Date Status albuterol 2.5 mg /3 Inhale 3 mL 100 Each 12 12/23/2016 Active mL (0.083 %) every 4 (four) nebulizer hours as needed solutionIndications: for Wheezing or Mild persistent Shortness of asthma without Breath. complication sod Use 1 Bottle in 1 Each 0 04/13/2017 Act usama utqdo-uuuiki-txkfvx each nostril 2 bottle (NEILMED (two) times [...] syrupIndications: for up to 10 Cough days. azithromycin 250 mg Take 1 tablet by 1 Package 0 07/10/2019 Active tabletIndications: mouth daily. Mild intermittent Take 500 mg day asthma without 1, then 250 mg complication days 2 to 5. predniSONE 20 mg Take 1 tablet by 10 tablet 0 07/10/201907/14 Active tabletIndications: mouth 2 (two) Mild intermittent times daily for asthma without 5 days. complication gabapentin 300 mg Take 1 capsule 90 capsule 2 07/12/2019 Active capsuleIndications: by mouth 3 Tear of medial (three) times meniscus of left daily. knee, current, unspecified tear type, initial encounter methocarbamol 500 mg Take 1 tablet by 40 tablet 3 07/12/2019 Active tabletIndications: mouth 4 (four) Tear of medial times daily. meniscus of left knee, current, unspecified tear type, initial encounter documented as of this encounter (statuses as of 07/12/2019) Active Problems Problem Noted Date Left knee pain, unspecified chronicity 04/26/2019 Overview: Added automatically from request for trevor lagunasy [id number] Asthma in adult without complication 12/31/2018 Abdominal pain 06/19/2018 Other constipation 03/08/2018 Overview: Added automatically from request for trevor mallorie [id number] Irritable bowel syndrome with constipation 03/08/2018 Overview: Added automatically from request for trevor mallorie [id number] Excessive or frequent menstruation 09/22/2017 Cyst of right ovary 09/22/2017 Morbid obesity with body mass index of 40.0-49.9 06/22 Abdominal pain, right upper quadrant 06/02/2017 Overview: Added automatically from request for trevor mallorie [id number] Tobacco use disorder 03/08/2017 Pain pelvic 03/08/2017 Obesity (BMI 30-39.9) 04/30/2016 documented as of this encounter (statuses as of 07/12/2019) Immunizations Name Administration Dates Next Due Tdap [...] on filedocumented in this encounter Progress Notes Greg Taylor MD - 07/12/2019 8:20 AM CDT Orthopedic Surgery Tele-Health Visit Date: 07/12/2019 Verbal consent obtained from Patient: Vanessa Ramachandran for telehealth services provided below. Communication with patient was conducted via Telephone due to patient unable to obtain video call option. Location of Patient: Home Location of Provider: Clinic CC: Surgery f/u HPI: Vanessa Ramachandran is a 34 year old female agreed to a tele-health visit today. Has some residual numbness in the inner part of the her knee and tightness in the back of the knee. States she has relieved relief with gabapentin and robaxin in the past. Performing home exercises. Home Medications: Current Outpatient Medications Medication Sig Dispense Refill azithromycin 250 mg tablet Take 1 tablet by mouth daily. Take 500 mg day 1, then 250 mg days 2 to 5. 1 Package 0 predniSONE 20 mg tablet Take 1 tablet by mouth 2 (two) times daily for 5 days. 10 tablet 0 xervwzefhcjbnxz-swboyzrmbcvlbzy-XH (BROMFED DM) 2-30-10 mg/5 mL syrup Take 5 mL by mouth 4 (four) times daily as needed for Cough for up to 10 days. 200 mL 0 promethazine-dextromethorphan 6.25-15 mg/5 mL syrup Take 5 [...] by mouth 2 (two) times daily. sod qcptq-fhnnie-zgkcnz bottle (NEILMED SINUS RINSE COMPLETE) pkdv Use 1 Bottle in each nostril 2 (two) times daily. Use in hot shower 1 hour before bedtime 1 Each 0 albuterol 2.5 mg /3 mL (0.083 %) nebulizer solution Inhale 3 mL every 4 (four) hours as needed for Wheezing or Shortness of Breath. 100 Each 12 No current facility-administered medications for this visit. Allergies: Allergies Allergen Reactions Codeine Other - See comments Bad stomach pain Ibuprofen Other - See comments Severe abdominal pain Reglan [Metoclopramide Hcl] Anxiety Massive Review of Systems Denies fever, chills, n/v, cough, chest pain, SOB, weakness Physical Exam Per patient, Able to fully flex and extend knee and walk without assistance. 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 These were understood by the patient and the important role of patient compliance in obtaining surgical outcome and avoiding complications of condition was emph asized. Patient, family/companions present at clinic visit, instructed [...] optimize patient outcome. Questions reviewed and answered. Gabapentin (300, TID, 90, 2 refills) robaxin prescribed after communication of indications, precautions, side effects, and other appropriate instructions regarding these specific prescribed medicines. HKB prescribed Patient will return to clinic in 8 weeks for re-evaluation and discussion of treatment options. All findings and diagnosis were discussed with patient at time of visit. Patient states they understand and are in agreement with the treatment plan at this time. A total of 15 minutes was spent with Vanessa Ramachandran today for this telehealth. Plan discussed with patient. Counseled patient about appropriate healthy behaviors and home self management. Patient able to explain back the plan. AVS is available on [employer] on close of this encounter. 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 BCBS OF [id number] 2019-Teresita [phone] [address] PPO/POS [place] nt [id number] [place] [address] [facility] xxxxxxxxx 2017-Pres Medic aid HEALTHCARE COMM STAR PLUS ent PLAN - MANAGED MEDICAID documented as of this encounter
--- OUTSIDE RECORDS SUMMARY | 2019-07-18 23:25 | XMS REPORT | Summary of Care ---
:1985 Author Organization [facility] Address [address] [place] [address] Care Team Providers Name Role Phone Ventura Mclaughlin MD Primary Care Provider Reason for Visit Reason Comments Results Encounter Details Date Type Department Care Team Description 07/10/2019 Telephone [facility] Family Medicine Rochelle Elizondo FNP Results - [place] [address] [facility] [address] [address] [place] [id number] Allergies Active Allergy Reactions Severity Noted Date Comments Codeine Other - See comments 02/07/2017 Bad sto mach pain Ibuprofen Other - See comments 12/23/2016 Severe abdominal pain Metoclopramide Hcl Anxiety 06/21/2018 Massive documented as of this encounter (statuses as of 07/10/2019) Medications Medication Sig Dispensed Refills Start Date End Date Status albuterol 2.5 mg /3 Inhale 3 mL 100 Each 12 12/23/2016 Active mL (0.083 %) every 4 (four) nebulizer hours as needed solutionIndications: for Wheezing or Mild persistent Shortness of asthma without Breath. complication sod Use 1 Bottle in 1 Each 0 04/13/2017 Act usama guvrx-ryzyio-bmpzhx each nostril 2 bottle (NEILMED (two) times [...] as of this encounter (statuses as of 07/10/2019) Active Problems Problem Noted Date Left knee pain, unspecified chronicity 04/26/2019 Overview: Added automatically from request for trevor mallorie [id number] Asthma in adult without complication 12/31/2018 Abdominal pain 06/19/2018 Other constipation 03/08/2018 Overview: Added automatically from request for trevor mallorie [id number] Irritable bowel syndrome with constipation 03/08/2018 Overview: Added automatically from request for trevor mallorie [id number] Excessive or frequent menstruation 09/22/2017 Cyst of right ovary 09/22/2017 Morbid obesity with body mass index of 40.0-49.9 06/22 Abdominal pain, right upper quadrant 06/02/2017 Overview: Added automatically from request for trevor lagunasy [id number] Tobacco use disorder 03/08/2017 Pain pelvic 03/08/2017 Obesity (BMI 30-39.9) 04/30/2016 documented as of this encounter (statuses as of 07/10/2019) Immunizations Name Administration Dates Next Due Tdap [...] Visit Orthopedic Surgery Zenia Armando MD [address] [facility] [address] [place] [phone] Health Maintenance Due Date Last Done Comments [...] track Moon Gutierrez (04/16/2019 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 xxxxxxxxx 2017-Pres Medic aid HEALTHCARE COMM STAR PLUS ent PLAN - MANAGED MEDICAID documented as of this encounter
--- OUTSIDE RECORDS SUMMARY | 2019-07-18 23:26 | XMS REPORT | Summary of Care ---
:1985 Author Organization [facility] Address [address] [place] [id number] Care Team Providers Name Role Phone Ventura Mclaughlin MD Primary Care Provider Reason for Visit Reason Comments Prescription Rn Internship Knee brace Encounter Details Date Type Department Care Team Description 07/15/2019 Telephone [facility] Brandyn Armando P rescription (Rn Internship Surgery- [place] Knee brace) [place] [address] [place] [address] [id number] Randal [address] [place] [phone] Allergies Active Allergy Reactions Severity Noted Date Comments Codeine Other - See comments 02/07/2017 Bad sto mach pain Ibuprofen Other - See comments 12/23/2016 Severe abdominal pain Metoclopramide Hcl Anxiety 06/21/2018 Massive documented as of this encounter (statuses as of 07/15/2019) Medications Medication Sig Dispensed Refills Start Date End Date Status albuterol 2.5 mg /3 Inhale 3 mL 100 Each 12 12/23/2016 Active mL (0.083 %) every 4 (four) nebulizer hours as needed solutionIndications: for Wheezing or Mild persistent Shortness of asthma without Breath. complication sod Use 1 Bottle in 1 Each 0 04/13/2017 Act usama bpjox-rmhark-lgyodz each nostril 2 bottle (NEILMED (two) times [...] as of this encounter (statuses as of 07/15/2019) Active Problems Problem Noted Date Left knee pain, unspecified chronicity 04/26/2019 Overview: Added automatically from request for trevor mallorie [id number] Asthma in adult without complication 12/31/2018 Abdominal pain 06/19/2018 Other constipation 03/08/2018 Overview: Added automatically from request for trevor mallorie [id number] Irritable bowel syndrome with constipation 03/08/2018 Overview: Added automatically from request for trevor mallorie [id number] Excessive or frequent menstruation 09/22/2017 Cyst of right ovary 09/22/2017 Morbid obesity with body mass index of 40.0-49.9 06/22 Abdominal pain, right upper quadrant 06/02/2017 Overview: Added automatically from request for trevor mallorie [id number] Tobacco use disorder 03/08/2017 Pain pelvic 03/08/2017 Obesity (BMI 30-39.9) 04/30/2016 documented as of this encounter (statuses as of 07/15/2019) Immunizations Name Administration Dates Next Due Tdap [...] filedocumented in this encounter Plan of Treatment Health [...] track Moon Gutierrez (04/16/2019 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
--- OUTSIDE RECORDS SUMMARY | 2019-07-18 23:26 | XMS REPORT | Summary of Care ---
:1985 Author Organization [facility] Address [address] [place] [address] Care Team Providers Name Role Phone Ventura Mclaughlin MD Primary Care Provider Reason for Visit Reason Comments Follow-up Encounter Details Date Type Department Care Team Description 07/12/2019 Telemedicine Visit [facility] Brandyn Armando Tear of lennie Orthopaedic Surgery- [place] meniscus of left [facility] knee, current, [address] [facility] [id number] unspecified tear [place] [address] [place], [place] type, [place] [address] encounter (Primary [id number] Dx) [phone] Allergies Active Allergy Reactions Severity Noted Date Comments Codeine Other - See comments 02/07/2017 Bad sto mach pain Ibuprofen Other - See comments 12/23/2016 Severe abdominal pain Metoclopramide Hcl Anxiety 06/21/2018 Massive documented as of this encounter (statuses as of 07/16/2019) Medications Medication Sig Dispensed Refills Start Date End Date Status albuterol 2.5 mg /3 Inhale 3 mL 100 Each 12 12/23/2016 Active mL (0.083 %) every 4 (four) nebulizer hours as needed solutionIndications: for Wheezing or Mild persistent Shortness of asthma without Breath. complication sod Use 1 Bottle in 1 Each 0 04/13/2017 Act usama icuxz-muyofm-wzudwl each nostril 2 bottle (NEILMED (two) times SINUS RINSE daily. Use in COMPLETE) pkdv hot shower 1 hour before bedtime Omeprazole 20 mg Take by mouth 0 Active tablet 2 (two) times daily. SYMBICORT 160-4.5 INHALE 2 PUFFS 10.2 Inhaler 8 01/01/2018 Active mcg/actuation 2 (TWO) TIMES inhalerIndications: DAILY. Mild persistent asthma without complication fluocinonide-emollie Apply to 60 g 3 02/12/2018 Active nt 0.05 % area(s) 2 (two) creamIndications: times daily. Seborrheic dermatitis dicyclomine (BENTYL) Take 1 tablet 60 tablet 2 03/08/2018 Active 20 mg by mouth 3 tabletIndications: (three) times Irritable bowel daily as needed syndrome with for Abdominal constipation pain. busPIRone 15 mg Take 15 mg [...] tablet 4 07/13/2018 Active TabIndications: by mouth daily. Endometriosis, Pain pelvic NORTRIPTYLINE 25 mg TAKE 1 CAPSULE 90 capsule 0 09/11/2018 Active capsuleIndications: BY MOUTH AT Irritable bowel BEDTIME syndrome with constipation pentazocine-naloxone Take 1 tablet 7 tablet 0 02/07/2019 Active 50-0.5 mg by mouth every tabletIndications: 6 (six) hours Chronic pain of left as needed for knee Pain. loratadine 10 mg Take 1 tablet 30 tablet 12 03/25/2019 Active tabletIndications: by mouth daily. Viral URI sumatriptan Take 1 tablet 9 tablet 12 03/25/2019 Act usama (IMITREX) 100 mg by mouth as tabletIndications: needed for Intractable migraine Migraine. without aura and without status migrainosus diclofenac 75 mg EC Take 1 tablet 60 tablet 1 04/01/2019 Active tabletIndications: by mouth 2 Left knee pain, (two) times unspecified daily with chronicity meals. tiZANidine 4 mg Take 1 tablet 30 tablet 0 04/17/2019 Active tabletIndications: by mouth every Acute pain of left 6 (six) hours knee as needed (knee pain). lamoTRIgine 150 mg 0 04/19/2019 Active tablet HYDROcodone-acetamin Take 1 tablet 20 tablet 0 05/02/2019 Active ophen (NORCO) 10-325 by mouth every mg 6 (six) hours tabletIndications: as needed for Synovitis of left Pain (scale knee 4-6) or Pain (scale 7-10). traMADol 50 mg Take 1 tablet 40 tablet 0 05/17/2019 Active tablet by mouth every 6 (six) hours as needed for Pain (scale 4-6). albuterol (PROAIR INHALE TWO 8.5 g 1 06/14/2019 Active HFA) 90 PUFFS BY MOUTH mcg/actuation EVERY 6 HOURS inhalerIndications: NEEDED FOR Mild persistent WHEEZING AND asthma without FOR SHORTNESS complication OF BREATH promethazine-dextrom Take 5 mL by 240 mL 1 06/16/2019 Active ethorphan 6.25-15 mouth every 4 mg/5 mL (four) hours as syrupIndications: needed for Cough Cough. brompheniramine-pseu Take 5 mL by 200 mL 0 07/08/201907/17 Active doephedrine-DM mouth 4 (four) (BROMFED DM) 2-30-10 times daily as mg/5 mL needed for syrupIndications: Cough for up to Cough 10 days. azithromycin 250 mg Take 1 tablet 1 Package 0 07/10/2019 Active tabletIndications: by mouth daily. Mild intermittent Take 500 mg day asthma without 1, then 250 mg complication days 2 to 5. gabapentin 300 mg Take 1 capsule 90 capsule 2 07/12/2019 Active capsuleIndications: by mouth 3 Tear of medial (three) times meniscus of left daily. knee, current, unspecified tear type, initial encounter methocarbamol 500 mg Take 1 tablet 40 tablet 3 07/12/2019 Active tabletIndications: by mouth 4 Tear of medial (four) times meniscus of left daily. knee, current, unspecified tear type, initial encounter predniSONE 20 mg Take 1 tablet 10 tablet 0 07/10/2019 07/15/19 20 tabletIndications: by mouth 2 Mild intermittent (two) times asthma without daily for 5 complication days. documented as of this encounter (statuses as of 07/16/2019) Active Problems Problem Noted Date Left knee pain, unspecified chronicity 04/26/2019 Overview: Added automatically from request for trevor nobles [id number] Asthma in adult without complication 12/31/2018 Abdominal pain 06/19/2018 Other constipation 03/08/2018 Overview: Added automatically from request for trevor nobles [id number] Irritable bowel syndrome with constipation 03/08/2018 Overview: Added automatically from request for trevor nobles [id number] Excessive or frequent menstruation 09/22/2017 Cyst of right ovary 09/22/2017 Morbid obesity with body mass index of 40.0-49.9 06/22 Abdominal pain, right upper quadrant 06/02/2017 Overview: Added automatically from request for trevor nobles [id number] Tobacco use disorder 03/08/2017 Pain pelvic 03/08/2017 Obesity (BMI 30-39.9) 04/30/2016 documented as of this encounter (statuses as of 07/16/2019) Immunizations Name Administration Dates Next Due Tdap [...] daily for 5 days. 10 tablet 0 vpudtqirgcdwudz-ziajtrlylotliqp-UJ (BROMFED DM) 2-30-10 mg/5 mL syrup Take [...] by mouth 2 (two) times daily. sod yyzxt-drarxo-oubbuj bottle (NEILMED SINUS RINSE COMPLETE) pkdv Use [...] without assistance. 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 AVS is available on [employer] on close of this encounter. 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) [place] Ji Note: Be able to function better without pain documented as of this encounter Results Not on filedocumented in this encounter Visit Diagnoses Diagnosis Tear of medial meniscus of left knee, cu rrent, unspecified tear type, initial encounter - Primary documented in this encounter Insurance Payer Benefit Plan Subscriber ID Effective Phone Address Typ e / Group Dates [facility] [place] BCBS OF [id number] 2019-Teresita [phone] [address]PO/POS [place] nt 87 [id number] [place] [address] [facility] xxxxxxxxx 2017-Pres Medic aid HEALTHCARE COMM STAR PLUS ent PLAN - MANAGED MEDICAID documented as of this encounter
--- NOTE | 2019-07-19 00:51 | EDPHYS ---
Physician Documentation [facility] Name: Vanessa Ramachandran Age: 34 yrs Sex: Female : 1985 Arrival Date: 07/18/2019 Time: 23:08 Bed 7 Private MD: TAHIRA Physician Senthil Lund HPI: 07/17 23:27 This 34 yrs old Female presents to ER via Ambulatory with complaints of Back danny Pain, Sore Throat, Shortness Of Breath. 23:27 The patient presents with pain that is acute, with no known mechanism of injury. The danny symptoms are located in the left scapular area, right scapular area and thoracic area. Onset: The symptoms/episode began/occurred 7 day(s) ago. The pain does not radiate. Associated signs and symptoms: Pertinent positives: chest pain, fever. The problem was sustained from unknown cause, bronchitis. Modifying factors: The patient symptoms are alleviated by remaining still, the patient symptoms are aggravated by coughing, movement. Severity of symptoms: At their worst the symptoms were mild, moderate, in the emergency department the symptoms are unchanged. The patient has not experienced similar symptoms in the past. Historical: - Allergies: 23:21 Codeine; ll1 23:21 tramadol; ll1 23:21 Reglan; ll1 23:21 Ibuprofen; ll1 - PMHx: 23:21 Asthma; Bipolar disorder; Endometrosis; Severe Anxiety Disorder; ADD/ADHD; ll1 - PSHx: 23:21 Cholecystectomy; Knee surgery; ll1 - Immunization history:: Adult Immunizations unknown. - Social history:: Smoking status: Patient denies any tobacco usage or history of. Patient uses street drugs, marijuana, Patient/guardian denies using alcohol, tobacco products. - Family history:: not pertinent. ROS: 23:27 Constitutional: Negative for fever, chills, and weight loss, Eyes: Negative for injury, danny pain, redness, and discharge, ENT: Negative for injury, pain, and discharge, Neck: Negative for injury, pain, and swelling, Abdomen/GI: Negative for abdominal pain, nausea, vomiting, diarrhea, and constipation, : Negative for injury, bleeding, discharge, and swelling, MS/Extremity: Negative for injury and deformity, Skin: Negative for injury, rash, and discoloration, Neuro: Negative for headache, weakness, numbness, tingling, and seizure. 23:27 Cardiovascular: Positive for chest pain, palpitations. 23:27 Respiratory: Positive for cough, with no reported sputum. 23:27 MS/extremity: Negative for decreased range of motion, pain, swelling, tenderness. Exam: 23:27 Constitutional: This is a well developed, well nourished patient who is awake, alert, danny and in no acute distress. Head/Face: Normocephalic, atraumatic. Eyes: Pupils equal round and reactive to light, extra-ocular motions intact. Lids and lashes normal. Conjunctiva and sclera are non-icteric and not injected. Cornea within normal limits. Periorbital areas with no swelling, redness, or edema. ENT: Nares patent. No nasal discharge, no septal abnormalities noted. Tympanic membranes are normal and external auditory canals are clear. Oropharynx with no redness, swelling, or masses, exudates, or evidence of obstruction, uvula midline. Mucous membranes moist. Neck: Trachea midline, no thyromegaly or masses palpated, and no cervical lymphadenopathy. Supple, full range of motion without nuchal rigidity, or vertebral point tenderness. No Meningismus. Cardiovascular: Regular rate and rhythm with a normal S1 and S2. No gallops, murmurs, or rubs. Normal PMI, no JVD. No pulse deficits. Respiratory: Lungs have equal breath sounds bilaterally, clear to auscultation and percussion. No rales, rhonchi or wheezes noted. No increased work of breathing, no retractions or nasal flaring. Abdomen/GI: Soft, non-tender, with normal bowel sounds. No distension or tympany. No guarding or rebound. No evidence of tenderness throughout. Back: No spinal tenderness. No costovertebral tenderness. Full range of motion. Skin: Warm, dry with normal turgor. Normal color with no rashes, no lesions, and no evidence of cellulitis. MS/ Extremity: Pulses equal, no cyanosis. Neurovascular intact. Full, normal range of motion. Neuro: Awake and alert, GCS 15, oriented to person, place, time, and situation. Cranial nerves II-XII grossly intact. Motor strength 5/5 in all extremities. Sensory grossly intact. Cerebellar exam normal. Normal gait. Psych: Awake, alert, with orientation to person, place and time. Behavior, mood, and affect are within normal limits. 23:27 Chest/axilla: Inspection: normal, no acute changes, Palpation: tenderness, that is mild, that is moderate, of the anterior aspect of right upper chest, anterior aspect of left upper chest, left lateral posterior chest, right lateral posterior chest, right breast and left breast, Axilla: are normal. 07/18 00:47 Musculoskeletal/extremity: DVT Exam: No signs of deep vein thrombosis. no pain, no danny swelling, no tenderness, negative Homans' sign noted on exam, no appreciated bluish discoloration, no erythema, no increased warmth. Vital Signs: 07/17 23:16 BP 144 / 100; Pulse 100; Resp 18; Temp 98.7; Pulse Ox 98% ; Pain 10/10; ll1 07/18 01:03 BP 138 / 78; Pulse 98; Resp 18; Pulse Ox 98% on R/A; ea MDM: 07/17 23:10 Patient medically screened. [facility] 23:30 Data reviewed: vital signs, nurses notes, radiologic studies. [facility] 07/18 01:03 ED course: cough x 1.5 weeks, chest wall pain with cough and palpitation, mucus not danny discolored, no trauma, no stasis, no hypercoagulable state. . 07/17 23:26 Order name: Chest Pa And Lat (2 Views) XRAY danny Administered Medications: 01:01 Drug: Tussionex Pennkinetic ER 5 ml Route: PO; ea 01:04 Follow up: Response: No adverse reaction; Medication administered at discharge. ea 01:01 Drug: predniSONE 40 mg Route: PO; ea 01:04 Follow up: Response: Medication administered at discharge. ea Disposition: 07/19/19 00:50 Discharged to Home. Impression: Bronchitis, not specified as acute or chronic, Chest pain on breathing - chest wall pain. - Condition is Stable. - Discharge Instructions: Chest Wall Pain, How to Use an Inhaler, Chest Wall Pain, Zzog-wo-Qdvs, Cough, Adult, Gbpz-om-Fvdj, Cough, Adult. - Prescriptions for Bromfed DM 2- 30-10 mg/5 mL Oral syrup - take 10 milliliter by ORAL route every 6 hours; 160 milliliter. Medrol (Deepak) 4 mg Oral Tablets, Dose Pack - take 1 tablet by ORAL route as directed - follow package instructions; 1 packet. Albuterol Sulfate 90 mcg/actuation - inhale 1-2 puff by INHALATION route every 4-6 hours; 1 Inhaler. - Work release form, Medication Reconciliation Form, Thank You Letter, Antibiotic Education, Prescription Opioid Use form. - Follow up: Private Physician; When: 2 - 3 days; Reason: Recheck today's complaints, Continuance of care, Re-evaluation by your physician. - Problem is new. - Symptoms have improved. Signatures: Dispatcher [employer] EDUT Senthil Lund MD MD cha Antunez, Elena RN RN Crystal Lea RN RN ll1 Corrections: (The following items were deleted from the chart) 01:04 00:50 07/19/2019 00:50 Discharged to Home. Impression: Bronchitis, not specified as ea acute or chronic; Chest pain on breathing - chest wall pain. Condition is Stable. Forms are Medication Reconciliation Form, Thank You Letter, Antibiotic Education, Prescription Opioid Use. Follow up: Private Physician; When: 2 - 3 days; Reason: Recheck today's complaints, Continuance of care, Re-evaluation by your physician. Problem is new. Symptoms have improved. danny
--- NOTE | 2019-07-19 00:51 | ER ---
Nurse's Notes [facility] Name: Vanessa Ramachandran Age: 34 yrs Sex: Female : 1985 Arrival Date: 07/18/2019 Time: 23:08 Bed 7 Private MD: Diagnosis: Bronchitis, not specified as acute or chronic;Chest pain on breathing-chest wall pain Presentation: 07/17 23:16 Chief complaint: Patient states: SOB, cough, back pain. States she had influenza last ll1 month that turned into bronchitis. Pain wraps around chest/trunk/back now. Tested for COVID19 twice, both results negative. States she went back to work Monday, and she believes she over did it. Coronavirus screen: Proceed with normal triage. Patient reports a cough. Patient reports shortness of breath or difficulty breathing. Patient denies measured and/or subjective temperature greater than 100.4F prior to today's visit. Patient denies travel on a cruise ship or to a country the [facility] currently lists as an affected area. Patient denies contact with known and/or suspected case of COVID-19. Had two covid tests this month, both negative. Ebola Screen: Patient denies travel to an Ebola-affected area in the 21 days before illness onset. Initial Sepsis Screen: Does the patient meet any 2 criteria? HR > 90 bpm. No. Patient's initial sepsis screen is negative. Risk Assessment: Do you want to hurt yourself or someone else? Patient reports no desire to harm self or others. Onset of symptoms was July 15, 2019. 23:16 Method Of Arrival: Ambulatory ll1 23:16 Acuity: ZOE 3 ll1 23:33 Initial Sepsis Screen: Does the patient have a suspected source of infection? No. ea Patient's initial sepsis screen is negative. Historical: - Allergies: 23:21 Codeine; ll1 23:21 tramadol; ll1 23:21 Reglan; ll1 23:21 Ibuprofen; ll1 - PMHx: 23:21 Asthma; Bipolar disorder; Endometrosis; Severe Anxiety Disorder; ADD/ADHD; ll1 - PSHx: 23:21 Cholecystectomy; Knee surgery; ll1 - Immunization history:: Adult Immunizations unknown. - Social history:: Smoking status: Patient denies any tobacco usage or history of. Patient uses street drugs, marijuana, Patient/guardian denies using alcohol, tobacco products. - Family history:: not pertinent. Screenin:33 Abuse screen: Denies threats or abuse. Nutritional screening: No deficits noted. ea Tuberculosis screening: No symptoms or risk factors identified. Fall Risk None identified. Assessment: 23:32 General: Appears in no apparent distress. Behavior is appropriate for age. Pain: ea Complains of pain in right scapular area and left scapular area. Neuro: Level of Consciousness is awake, alert, obeys commands, Oriented to person, place, time, Appropriate for age. Respiratory: Airway is patent Respiratory effort is even, unlabored, Respiratory pattern is regular, symmetrical. Derm: Skin is pink, warm \T\ dry. 07/18 00:36 Reassessment: Patient and/or family updated on plan of care and expected duration. Pain ea level reassessed. Patient is alert, oriented x 3, equal unlabored respirations, skin warm/dry/pink. 01:02 Reassessment: Patient and/or family updated on plan of care and expected duration. Pain ea level reassessed. Patient is alert, oriented x 3, equal unlabored respirations, skin warm/dry/pink. discharge instruction given to patient, verbalized the understanding of instruction. Vital Signs: 07/17 23:16 BP 144 / 100; Pulse 100; Resp 18; Temp 98.7; Pulse Ox 98% ; Pain 10/10; ll1 07/18 01:03 BP 138 / 78; Pulse 98; Resp 18; Pulse Ox 98% on R/A; ea ED Course: 07/17 23:08 Patient arrived in ED. cl3 23:10 Senthil Lund MD is Attending Physician. danny 23:18 Laila Mcneil, ANGEL is Primary Nurse. ea 23:20 Triage completed. ll1 23:22 Arm band placed on Patient placed in an exam room, on a stretcher. ll1 23:33 Patient has correct armband on for positive identification. Bed in low position. Call ea light in reach. Side rails up X2. 07/18 00:15 Chest Pa And Lat (2 Views) XRAY In Process Unspecified. EDMS 01:03 No provider procedures requiring assistance completed. Patient did not have IV access ea during this emergency room visit. Administered Medications: 01:01 Drug: Tussionex Pennkinetic ER 5 ml Route: PO; ea 01:04 Follow up: Response: No adverse reaction; Medication administered at discharge. niki 01:01 Drug: predniSONE 40 mg Route: PO; niki 01:04 Follow up: Response: Medication administered at discharge. niki Outcome: 00:50 Discharge ordered by . danny 01:03 Discharged to home ambulatory. niki 01:03 Condition: stable 01:03 Discharge instructions given to patient, Instructed on discharge instructions, follow up and referral plans. medication usage, Demonstrated understanding of instructions, follow-up care, medications. 01:04 Patient left the ED. ea Signatures: Dispatcher [employer] EDCA Senthil Lund MD MD cha Antunez, Elena, RN RN Amy Lea cl3 Crystal Lobo RN RN ll1 Corrections: (The following items were deleted from the chart) 07/17 23:26 23:16 Chief complaint: Patient states: SOB, cough, back pain. States she had influenza ll1 last month that turned into bronchitis. Pain wraps around chest/trunk/back now. Tested for COVID19 twice, both results negative. ll1
[2019-07-19] MEDS ORDERED: HYDROCODONE/CHLORPHEN 5 ML/OSYR ONE (01:00)
[2019-07-19] MEDS ORDERED: predniSONE 20 MG TAB ONE (01:00)
[2019-07-19 01:11] VITALS: TEMP 98.7; O2SAT 98
[2019-07-19 01:12] VITALS: BP 138/78
--- NOTE | 2019-07-19 08:36 | RAD REPORT ---
EXAM DESCRIPTION: RAD - Chest Pa And Lat (2 Views) - 07/19/2019 12:11 am CLINICAL HISTORY: Cough;Chest pain;Dyspnea Chest pain. COMPARISON: Chest Single View dated 12/11/2016; Chest Single View dated 08/29/2016 FINDINGS: The lungs are clear. The heart is normal in size. No displaced fractures.
== END 2019-07-19 01:04 | disposition home or self-care (01) ==
LOC: ER 23:06
DX: J40 Bronchitis, not specified as acute or chronic (principal); R05 Cough; F31.9 Bipolar disorder, unspecified; Z88.5 Allergy status to narcotic agent; Z88.6 Allergy status to analgesic agent; Z88.8 Allergy status to other drugs, medicaments and biological substances
CPT/HCPCS: 71046; 99283; J7512